=== PATIENT | male | born 1970 | race Caucasian/White ===

== ENCOUNTER → 2018-05-03 14:02 | Outpatient (CLI) | payer OTHER, SELFPAY ==
--- NOTE | 2018-05-03 | OV.WND_ITS ---
Progress Note Details Patient Name: Tomy Chin Patient Number: [id number] PatientPatientDate: 05/03/2018 Clinician: Nishi Pena Physician / Automotive Maintenance Technician: Benedict Dodd SUBJECTIVE Chief Complaint This information was obtained from the patient Diabetic toe ulcers. Allergies codeine (Severity: Severe, Reaction: confusion, lethargy) HPI This information was obtained from the patient 05/03/18. Seen by Dr. Dodd. The patient returns to clinic with recurrence of bilateral 2nd toe diabetic ulcers which is the 3rd recurrence in the past year. His most recent A1c was around '10' according to his and he was off his diabetes medication for an extended period while they were try to re-establish insurance coverage. His blood sugar control historically has been poor. He does not report pain in the toes however the medical typist does report some purulent drainage. 01/11/18. Seen by Dr. Dodd. The patient does not report increased drainage associated with the chronic right 2nd toe diabetic ulcer since last visit and he's applying topical iodosorb as recommended to manage the chronic maceration. Of note, he's also wearing a silicon sleeve over the toe to help prevent shear and callus. 01/04/18. Seen by Dr. Dodd. The patient reports increased drainage associated with the chronic right 2nd toe diabetic ulcer since last visit. Of note comment blood sugars again are significantly elevated at 270 today he states very few of them are below 200 general. He is also wearing his new diabetic shoes as well as a toe lift on the 2nd toe to help facilitate better offloading due to the significant plantar flexion deformity. 12/28/17. Seen by Dr. Dodd. The patient does not report significant drainage associated with the chronic right second toe diabetic ulcer since his last visit and he is wearing a silicon sleeve over the plantar flexed toe to help reduce shear and callus. He is wearing his offloading shoe as recommended and states his blood sugar control is improving although its still at 200 today in clinic. 12/21/17. Seen by Dr. Dodd. The patient does not report increased drainage or pain associated with chronic right second toe diabetic ulcer since his last visit. 12/14/17. Seen by Dr. Dodd. The patient does not report increased drainage or pain associated with chronic right second toe diabetic ulcer since his last visit. He also states blood sugars are improving with most below 200. 12/07/17. Seen by Dr. Dodd. The patient's wound culture from the right second toe diabetic ulcer taken last week grew Streptococcus. He's completed his course of doxycycline and is continuing to apply topical gentamicin as recommended. His blood sugars however continued to be frequently over 200 which tends to be admittedly due to noncompliance with a diabetic diet. 11/30/17. Seen by KAYLEE Asif. The patient reports pain and swelling associated with right 2nd toe diabetic ulcer that started one day ago. Denies fevers, chills. The patient does not report drainage or pain associated with left 2nd toe diabetic ulcer. The patient currently does not have test strips to check his blood glucose at home but states he is getting some today. 11/23/17. Seen by Dr. Dodd. The patient does not report significant drainage associated with the bilateral 2nd toe diabetic ulcers since his last visit. His blood sugars are over 300 today and he admits to have a candy bar on the way to his visit today. He's unaware of when his last A1c was drawn but feels he's probably overdue regarding this. He's also wearing his toe lifts to address the plantar flexion deformities but feels they may no longer be effective. 11/16/17. Seen by Carlos Jackson PA-C. The patient reports decreased drainage from his bilateral diabetic foot ulcers. He continues to have blood sugar readings above 150. 11/09/17. Seen by Carlos Jackson PA-C. The patient reports his blood sugars continue to be elevated. He is hoping to have his medications adjusted to address this issue in the coming weeks. His ulcer of the right and left toes have had decreased drainage. 11/02/17. Seen by Carlos Jackson PA-C. The patient reports that he continues to have high blood sugars this week and has not yet resumed taking glipizide as instructed. He notes stable drainage from his right and left foot ulcers and would like to procure custom diabetic shoes and inserts to compensate for his deformed feet. His chronic callouses of his feet are unchanged he reports. He continues on Amoxicillin for his ulcer infection which has been causing mild diarrhea. 10/26/17. Seen by Carlos Jackson PA-C. The patient reports that he has run out of his Glipizide, thus his blood sugars have been very high this week. He does not report increased drainage from his ulcers. 10/19/17. Seen by Dr. Dodd. The patient's reports increased drainage from the right second toe diabetic ulcer that was first noticed yesterday. The patient does not report pain at the site nor increased drainage or pain associated with the chronic left second toe diabetic ulcer. 10/12/17. Seen by Carlos Jackson PA-C. The patient again reports high blood sugars this week, with numbers in the 200s. Drainage is not increased from his diabetic foot ulcers. 10/05/17. Seen by Carlos Jackson PA-C. The patient reports high blood sugars this week and stable drainage from his diabetic foot ulcers. The patient is not insured at this time and does not wish to go forward with the CT scan to evaluate for osteomyelitis due to the cost. 09/28/17. Seen by Carlos Jackson PA-C. The patient reports continued redness and swelling of his left 2nd toe. Drainage has been stable from this ulcer. He is on doxycycline currently for an infection of this ulcer. 09/21/17. Seen by Dr. Dodd. The patient returns for clinic following a recent visit to the ER where he was seen for cellulitis of the left second toe associated with recurrence of a distal second toe diabetic ulcer. He is now on Bactrim but feels that the erythema and pain is have not improved. He also reports some drainage associated with the recurrent right second toe diabetic ulcer. Of note, he has plantar flexion deformities of both toes and wears toe lifts to help offset this and help prevent callus formation. 06/02/17. Seen by Dr. Dodd. The patient does not report pain or increased drainage associated with the chronic bilateral second toe diabetic ulcers. 05/26/17. Seen by Dr. Dodd. The patient does not report pain or increased drainage associated with the chronic bilateral second toe diabetic ulcers. He is taking Augmentin for the recurrent MSSA positive wound infections and does not report ever side effects. 05/19/17. Seen by Dr. Dodd. The patient does not report significant drainage associated with the bilateral second toe diabetic foot ulcers since last week. They're also using toe lifts to help offload the significant bilateral 2nd toe plantarflexion deformities. 05/12/17. Seen by Dr. Dodd. The patient does not report significant drainage associated with the bilateral second toe diabetic foot ulcers since last week and he's been applying topical triple antibiotic ointment to the sites as recommended to treat the recent MSSA positive culture. 05/05/17. Seen by Dr. Dodd. The patient does not report significant drainage associated with the bilateral second toe diabetic foot ulcers since last week. His wound culture grew MSSA and he's been wearing his toe lifts as recommended to help off load the distal toes noting the plantarflexion deformity that's contributed to callus formation. 04/28/17. Seen by Dr. Dodd. The patient reports some pain associated with the recently healed right second toe diabetic ulcer and notes that he had inserts placed in his diabetic shoes about a week ago and feels that it may have resulted in increased callus formation at this toe as well as the left second toe. He does not report any pain or associated drainage from the left second toe diabetic ulcer. His blood sugars continue to be well controlled. 04/14/17. Seen by Dr. Dodd. The patient does not report drainage associated with the bilateral second toe diabetic ulcers since last visit. 04/07/17. Seen by Dr. Dodd. The patient does not report significant drainage associated with bilateral second toe diabetic ulcers. He's wearing his toe lifts as recommended and states his blood sugars continue to be well-controlled. 03/31/17. Seen by Dr. Dodd. The patient does not report significant drainage associated with bilateral second toe diabetic ulcers. He's wearing his toe lifts as recommended and states his blood sugars continue to be well-controlled. 03/24/17. Seen by Dr. Dodd. The patient does not report significant drainage associated with the chronic bilateral foot ulcers of the distal second toes. He's wearing toe this as recommended due to the significant plantar flexion deformity of the toe's and his blood sugars continue to be well-controlled. 03/16/17. Seen by Dr. Dodd. The patient returns to clinic with two chronic, right and left 2nd toe diabetic ulcers that started about 1 month ago. He works a full schedule wearing 'work boots' and has been using toe lifts due to plantar flexion of the toes as recommended. He does not report pain or significant drainage from ulcer sites nor fevers or felling unwell in general and his blood sugars are typically well controlled below 150. 05/26/16. Seen by Dr. Dodd. The patient does not report drainage associated with the right second toe diabetic ulcer of the past week. 05/19/16. Seen by Dr. Dodd. The patient does not report significant drainage associated with the right second toe diabetic ulcer of the past week. He continues to wear his toe left as recommended to help offload the ulcer. His blood sugars are well-controlled below 150 consistently and when discussing his morbid obesity he states that he's attempted to lose weight in the past by dieting but has been relatively unsuccessful. 05/12/16. Seen by Dr. Dodd. The patient reports minimal drainage on the right 2nd toe diabetic ulcer dressing throughout the week. 05/05/16. Seen by Dr. Dodd. The patient reports minimal drainage on the right 2nd toe diabetic ulcer dressing throughout the week. He's offloading with a surgical shoe and states most of his blood sugars are below 150. 04/28/16. Seen by Dr. Dodd. The patient does not report pain or significant drainage associated with the chronic right 2nd toe diabetic ulcer over the past week. Of note, he's unable have an MRI to evaluate for osteomyelitis of the toe due to a intracranial clip that was placed a number of years ago. He's also wearing his toe lift as recommended to address the significant plantar flexion that's contributing to the refractory nature of the ulcer. 04/21/16. Seen by Dr. Dodd. The patient does not report significant drainage associated with a chronic right second toe diabetic ulcer of the past week. He also states his blood sugars are consistently below 150. 03/31/16. Seen by Dr. Dodd. The patient does not report significant pain or drainage associated with the chronic right second toe diabetic ulcer over the past week. He is wearing his offloading shoe as recommended and states his blood sugars are mostly below 150. 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 Past Medical History This information was obtained from the patient Patient has a medical history of: Aneurysm (s/p clip placement) Seizure Disorder Type II Diabetes Hyperlipidemia Hypertension Morbid Obesity Tension pneumothorax Phlebitis Onycholysis Surgical History This information was obtained from the patient Patient has a surgical history of: Aneurysm repair, brain Hernia repair Lung Surgery Complaints and Symptoms This information was obtained from the patient Patient complains of: General Notes: I have reviewed and concur with the Review of Systems and Past Family Social History documents completed by the clinician, I have reviewed and concur with the Wound Assessment document completed by the clinician Integumentary (Hair/Skin/Nails): Open Sore Musculoskeletal: Joint Swelling Neurological: Loss of Protective Sensation Prior Wound History: Drainage, Erythema, Pain Patient denies complaints or symptoms related to: Cardiovascular (Central): Irregular heart beat Cardiovascular (Central/Peripheral): Intermittent Claudication, Lower extremity (leg) resting pain, Lower extremity (leg) swelling Constitutional Symptoms (General Health): Chills, Fever Ear/Nose/Mouth/Throat: Hearing Loss / Aid Gastrointestinal (GI): Nausea / Vomiting Hematologic/Lymphatic: Bleeding / Clotting Disorders, Bleeding Tendency Prior Wound History: Bleeding, Malodor Psychiatric: Depression, Memory Loss Respiratory: Oxygen Use, Shortness of Breath General Notes: Updated per patient. Additional Information Does patient have a history of Cancer? Yes? Complete all questions.: No Medications phenytoin 100 mg/4 mL oral suspension oral 4 4 suspension oral once daily metformin ER 500 mg tablet,extended release 24 hr oral 2 2 tablet extended release 24 hr oral once daily glipizide ER 10 mg tablet, extended release 24 hr oral 1 1 tablet extended release 24hr oral twice daily pravastatin 20 mg tablet oral 1 1 tablet oral once daily lisinopril 40 mg tablet oral 1 1 tablet oral once daily fenofibrate 160 mg tablet oral 1 1 tablet oral once daily gentamicin 0.1 % topical ointment topical ointment topical once daily for 7 days for infected ulcers OBJECTIVE Constitutional Vital signs reviewed and noted. Well developed. Alert. Clean appearing.. Height/ Length: 75 in (190.5 cm), Weight: 276.6 lbs (125.73 kgs), BMI: 34.6, Temperature: 97.9 ?F ( 36.61 ?C), Pulse: 76 bpm, Respiratory Rate: 18 breaths/min, Blood Pressure: 129/78 mmHg, Capillary Blood Glucose: 240 mg/dl, Pulse Oximetry: 97 %. Ears, Nose, Mouth, and Throat: No clinically significant hearing loss on informal examination. Respiratory: No respiratory distress. Even respirations and without use of accessory muscles.. Cardiovascular: 2+ bilateral lower leg edema. Gastrointestinal (GI): Obese. Nondistended.. Musculoskeletal: Significant plantar flexion of right 2nd toe. Significant plantar flexion of left 2nd toe. Integumentary (Hair, Skin) No periwound erythema, warmth, or significant drainage. No periwound rashes appreciated or noted otherwise.. Refer to appropriate clinician wound documentation for this visit; right and left 2nd toe ulcers extend to deep subcut with bases partially covered with pink granulation, remainder fibrin and slough; no appreciable bone exposure. Significant amount of callus and maceration in the periulcer areas. Wound #6 Left Second Toe is a chronic Gambino Grade 3 Diabetic Ulcer and has received a status of Not Healed. Initial wound encounter measurements are 0.2cm length x 0.2cm width x 0.2cm depth, with an area of 0.04 sq cm and a volume of 0.008 cubic cm. No tunneling has been noted. No sinus tract has been noted. No undermining has been noted. There is a large amount of sanguineous drainage noted which has no odor. The patient reports a wound pain of level 0/10. Wound bed has No epithelialization, No eschar, Yes slough, No granulation. The periwound skin moisture is normal. The periwound skin color is normal. The periwound skin exhibited: Callus. The temperature of the periwound skin is Warm. Periwound skin presents with s/s of infection. Confirmation Description and Treatment Plan is: Signs and Symptoms Present. Local Pulse is Doppler. Wound #7 Right Second Toe is a chronic Gambino Grade 3 Diabetic Ulcer and has received a status of Not Healed. Initial wound encounter measurements are 1.2cm length x 1.1cm width x 0.2cm depth, with an area of 1.32 sq cm and a volume of 0.264 cubic cm. No tunneling has been noted. No sinus tract has been noted. No undermining has been noted. There is a moderate amount of purlulent drainage noted which has a mild odor. The patient reports a wound pain of level 4/10. The wound margin is callus. Wound bed has No epithelialization, No eschar, Yes slough, No granulation. The periwound skin texture is normal. The periwound skin moisture is normal. The periwound skin color is normal. The temperature of the periwound skin is Warm. Periwound skin presents with s/s of infection. Confirmation Description and Treatment Plan is: Signs and Symptoms Present. Local Pulse is Doppler. Neurological: Cranial nerves grossly intact with symmetric function normal by informal observation.. Additional Information Done outside of center (results scanned in)?: Did have Arterial studies done today on both legs. Doppler ASSESSMENT Active Problems ICD-10 (Encounter Diagnosis) E11.621 - Type 2 diabetes mellitus with foot ulcer (Encounter Diagnosis) L97.512 - Non-pressure chronic ulcer of other part of right foot with fat layer exposed (Encounter Diagnosis) L97.522 - Non-pressure chronic ulcer of other part of left foot with fat layer exposed (Encounter Diagnosis) L08.9 - Local infection of the skin and subcutaneous tissue, unspecified (Encounter Diagnosis) E11.65 - Type 2 diabetes mellitus with hyperglycemia PROCEDURES Wound #6 Wound #6 (Diabetic Ulcer) is located on the left second toe. A skin/ subcutaneous tissue level surgical debridement with a total area debrided of 0.12 sq cm was performed by Benedict Dodd MD. Subcutaneous was removed along with devitalized tissue: callus and slough. The following instrument(s) were used: curette. Pain control was achieved using 4% Lido. A time out was conducted prior to the start of the procedure. A minimal amount of bleeding was controlled with pressure. The procedure was tolerated well with a pain level of 0 throughout and a pain level of 0 following the procedure. Post Debridement Measurements: 0.4cm length x 0.3cm width x 0.3cm depth; with an area of 0.12 sq cm and a volume of 0.036 cubic cm; Wound #7 Wound #7 (Diabetic Ulcer) is located on the right second toe. A skin/ subcutaneous tissue level surgical debridement with a total area debrided of 0.42 sq cm was performed by Benedict Dodd MD. Subcutaneous was removed along with devitalized tissue: callus, exudate , and slough. The following instrument(s) were used: curette, forceps, and scissors. Pain control was achieved using 4% Lido. A time out was conducted prior to the start of the procedure. A minimal amount of bleeding was controlled with pressure. The procedure was tolerated well with a pain level of 0 throughout and a pain level of 0 following the procedure. Post Debridement Measurements: 0.6cm length x 0.7cm width x 0.3cm depth; with an area of 0.42 sq cm and a volume of 0.126 cubic cm; Additional Information Muscle fascia or bone removed and sent to pathology?: No Muscle fascia or bone removed and sent to pathology?: No PLAN Wound Orders: Wound #6 Left Second Toe Cleanser Cleanse Wound: - Distilled water. Dressings Pack wound: - Gentamicin to wound bed Primary dressing: - Foam Cover and secure with: - Hypafix Change Dressing: - Every other day. Off-Loading Keep weight off: - Left 2nd toe wear off loading shoe Follow-Up Appointments Return Appointment: - - One week Wound #7 Right Second Toe Cleanser Cleanse Wound: - Distilled water. Dressings Pack wound: - Gentamicin to wound bed Primary dressing: - Foam Cover and secure with: - Hypafix Change Dressing: - Every other day. Follow-Up Appointments Return Appointment: - - One week Laboratory: Culture Wound - Both Right and Left Second toes cultured. Medications prescribed: gentamicin - topical 0.1 % ointment once daily for 7 days for infected ulcers starting 05/03/2018 I've reviewed the clinician's documentation and agree with the evaluation and plan as written. In addition the patient's ulcers demonstrate evidence of non-viable devitalized tissue and they will continue to benefit from sharp debridement to help promote granulation and expedite healing. Also, I've cultured both 2nd toe ulcers and will treat with topical gentamicin then consider adding an oral antibiotic pending the culture results. He'll also work towards improving his blood sugar control. Electronic Signature(s) Signed By: Date: Benedict Dodd MD 05/04/2018 08:53:09 Entered By: Benedict Dodd on 05/04/2018 07:17:16
== END ==
PROVIDERS: Family Provider Internal Medicine; PCP Internal Medicine; Visit Provider Internal Medicine
DX: E11.621 Type 2 diabetes mellitus with foot ulcer (principal); L97.512 Non-pressure chronic ulcer of other part of right foot with fat layer exposed; L97.522 Non-pressure chronic ulcer of other part of left foot with fat layer exposed; L08.9 Local infection of the skin and subcutaneous tissue, unspecified; E11.65 Type 2 diabetes mellitus with hyperglycemia
CPT/HCPCS: 11042; 87070; 87075; 87077; 87147; 87186; 87205

== ENCOUNTER → 2018-05-10 09:07 | Outpatient (CLI) | payer OTHER, SELFPAY ==
--- NOTE | 2018-05-10 | OV.WND_ITS ---
Progress Note Details Patient Name: Tomy Chin Patient Number: [id number] PatientPatientDate: 05/10/2018 Clinician: Jolanta Neal Clinician Cosigner: Cami Bell Physician / Aerospace Stress Engineer: Benedict Dodd SUBJECTIVE Chief Complaint This information was obtained from the patient Diabetic toe ulcers. Allergies codeine (Severity: Severe, Reaction: confusion, lethargy) HPI This information was obtained from the patient 05/10/18. Seen by Dr. Dodd. The patient does not report increased drainage associated with the recurrent and chronic right and left 2nd toe diabetic ulcers since his last visit and he's not yet picked up his Augmentin that's to treat the recent Enterococcus positive wound culture. His blood sugars are well controlled also around 150. 05/03/18. Seen by Dr. Dodd. The patient returns to clinic with recurrence of bilateral 2nd toe diabetic ulcers which is the 3rd recurrence in the past year. His most recent A1c was around '10' according to his and he was off his diabetes medication for an extended period while they were try to re-establish insurance coverage. His blood sugar control historically has been poor. 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 01/11/18. Seen by Dr. Dodd. The patient does not report increased drainage associated with the chronic right 2nd toe diabetic ulcer since last visit and he's applying topical iodosorb as recommended to manage the chronic maceration. Of note, he's also wearing a silicon sleeve over the toe to help prevent shear and callus. 01/04/18. Seen by Dr. Dodd. The patient reports increased drainage associated with the chronic right 2nd toe diabetic ulcer since last visit. Of note comment blood sugars again are significantly elevated at 270 today he states very few of them are below 200 general. He is also wearing his new diabetic shoes as well as a toe lift on the 2nd toe to help facilitate better offloading due to the significant plantar flexion deformity. 12/28/17. Seen by Dr. Dodd. The patient does not report significant drainage associated with the chronic right second toe diabetic ulcer since his last visit and he is wearing a silicon sleeve over the plantar flexed toe to help reduce shear and callus. He is wearing his offloading shoe as recommended and states his blood sugar control is improving although its still at 200 today in clinic. 12/21/17. Seen by Dr. Dodd. The patient does not report increased drainage or pain associated with chronic right second toe diabetic ulcer since his last visit. 12/14/17. Seen by Dr. Dodd. The patient does not report increased drainage or pain associated with chronic right second toe diabetic ulcer since his last visit. He also states blood sugars are improving with most below 200. 12/07/17. Seen by Dr. Dodd. The patient's wound culture from the right second toe diabetic ulcer taken last week grew Streptococcus. He's completed his course of doxycycline and is continuing to apply topical gentamicin as recommended. His blood sugars however continued to be frequently over 200 which tends to be admittedly due to noncompliance with a diabetic diet. 11/30/17. Seen by KAYLEE Asif. The patient reports pain and swelling associated with right 2nd toe diabetic ulcer that started one day ago. Denies fevers, chills. The patient does not report drainage or pain associated with left 2nd toe diabetic ulcer. The patient currently does not have test strips to check his blood glucose at home but states he is getting some today. 11/23/17. Seen by Dr. Dodd. The patient does not report significant drainage associated with the bilateral 2nd toe diabetic ulcers since his last visit. His blood sugars are over 300 today and he admits to have a candy bar on the way to his visit today. He's unaware of when his last A1c was drawn but feels he's probably overdue regarding this. He's also wearing his toe lifts to address the plantar flexion deformities but feels they may no longer be effective. 11/16/17. Seen by Carlos Jackson PA-C. The patient reports decreased drainage from his bilateral diabetic foot ulcers. He continues to have blood sugar readings above 150. 11/09/17. Seen by Carlos Jackson PA-C. The patient reports his blood sugars continue to be elevated. He is hoping to have his medications adjusted to address this issue in the coming weeks. His ulcer of the right and left toes have had decreased drainage. 11/02/17. Seen by Carlos Jackson PA-C. The patient reports that he continues to have high blood sugars this week and has not yet resumed taking glipizide as instructed. He notes stable drainage from his right and left foot ulcers and would like to procure custom diabetic shoes and inserts to compensate for his deformed feet. His chronic callouses of his feet are unchanged he reports. He continues on Amoxicillin for his ulcer infection which has been causing mild diarrhea. 10/26/17. Seen by Carlos Jackson PA-C. The patient reports that he has run out of his Glipizide, thus his blood sugars have been very high this week. He does not report increased drainage from his ulcers. 10/19/17. Seen by Dr. Dodd. The patient's reports increased drainage from the right second toe diabetic ulcer that was first noticed yesterday. The patient does not report pain at the site nor increased drainage or pain associated with the chronic left second toe diabetic ulcer. 10/12/17. Seen by Carlos Jackson PA-C. The patient again reports high blood sugars this week, with numbers in the 200s. Drainage is not increased from his diabetic foot ulcers. 10/05/17. Seen by Carlos Jackson PA-C. The patient reports high blood sugars this week and stable drainage from his diabetic foot ulcers. The patient is not insured at this time and does not wish to go forward with the CT scan to evaluate for osteomyelitis due to the cost. 09/28/17. Seen by Carlos Jackson PA-C. The patient reports continued redness and swelling of his left 2nd toe. Drainage has been stable from this ulcer. He is on doxycycline currently for an infection of this ulcer. 09/21/17. Seen by Dr. Dodd. The patient returns for clinic following a recent visit to the ER where he was seen for cellulitis of the left second toe associated with recurrence of a distal second toe diabetic ulcer. He is now on Bactrim but feels that the erythema and pain is have not improved. He also reports some drainage associated with the recurrent right second toe diabetic ulcer. Of note, he has plantar flexion deformities of both toes and wears toe lifts to help offset this and help prevent callus formation. 06/02/17. Seen by Dr. Dodd. The patient does not report pain or increased drainage associated with the chronic bilateral second toe diabetic ulcers. 05/26/17. Seen by Dr. Dodd. The patient does not report pain or increased drainage associated with the chronic bilateral second toe diabetic ulcers. He is taking Augmentin for the recurrent MSSA positive wound infections and does not report ever side effects. 05/19/17. Seen by Dr. Dodd. The patient does not report significant drainage associated with the bilateral second toe diabetic foot ulcers since last week. They're also using toe lifts to help offload the significant bilateral 2nd toe plantarflexion deformities. 05/12/17. Seen by Dr. Dodd. The patient does not report significant drainage associated with the bilateral second toe diabetic foot ulcers since last week and he's been applying topical triple antibiotic ointment to the sites as recommended to treat the recent MSSA positive culture. 05/05/17. Seen by Dr. Dodd. The patient does not report significant drainage associated with the bilateral second toe diabetic foot ulcers since last week. His wound culture grew MSSA and he's been wearing his toe lifts as recommended to help off load the distal toes noting the plantarflexion deformity that's contributed to callus formation. 04/28/17. Seen by Dr. Dodd. The patient reports some pain associated with the recently healed right second toe diabetic ulcer and notes that he had inserts placed in his diabetic shoes about a week ago and feels that it may have resulted in increased callus formation at this toe as well as the left second toe. He does not report any pain or associated drainage from the left second toe diabetic ulcer. His blood sugars continue to be well controlled. 04/14/17. Seen by Dr. Dodd. The patient does not report drainage associated with the bilateral second toe diabetic ulcers since last visit. 04/07/17. Seen by Dr. Dodd. The patient does not report significant drainage associated with bilateral second toe diabetic ulcers. He's wearing his toe lifts as recommended and states his blood sugars continue to be well-controlled. 03/31/17. Seen by Dr. Dodd. The patient does not report significant drainage associated with bilateral second toe diabetic ulcers. He's wearing his toe lifts as recommended and states his blood sugars continue to be well-controlled. 03/24/17. Seen by Dr. Dodd. The patient does not report significant drainage associated with the chronic bilateral foot ulcers of the distal second toes. He's wearing toe this as recommended due to the significant plantar flexion deformity of the toe's and his blood sugars continue to be well-controlled. 03/16/17. Seen by Dr. Dodd. The patient returns to clinic with two chronic, right and left 2nd toe diabetic ulcers that started about 1 month ago. He works a full schedule wearing 'work boots' and has been using toe lifts due to plantar flexion of the toes as recommended. He does not report pain or significant drainage from ulcer sites nor fevers or felling unwell in general and his blood sugars are typically well controlled below 150. 05/26/16. Seen by Dr. Dodd. The patient does not report drainage associated with the right second toe diabetic ulcer of the past week. 05/19/16. Seen by Dr. Dodd. The patient does not report significant drainage associated with the right second toe diabetic ulcer of the past week. He continues to wear his toe left as recommended to help offload the ulcer. His blood sugars are well-controlled below 150 consistently and when discussing his morbid obesity he states that he's attempted to lose weight in the past by dieting but has been relatively unsuccessful. 05/12/16. Seen by Dr. Dodd. The patient reports minimal drainage on the right 2nd toe diabetic ulcer dressing throughout the week. 05/05/16. Seen by Dr. Dodd. The patient reports minimal drainage on the right 2nd toe diabetic ulcer dressing throughout the week. He's offloading with a surgical shoe and states most of his blood sugars are below 150. 04/28/16. Seen by Dr. Dodd. The patient does not report pain or significant drainage associated with the chronic right 2nd toe diabetic ulcer over the past week. Of note, he's unable have an MRI to evaluate for osteomyelitis of the toe due to a intracranial clip that was placed a number of years ago. He's also wearing his toe lift as recommended to address the significant plantar flexion that's contributing to the refractory nature of the ulcer. 04/21/16. Seen by Dr. Dodd. The patient does not report significant drainage associated with a chronic right second toe diabetic ulcer of the past week. He also states his blood sugars are consistently below 150. 03/31/16. Seen by Dr. Dodd. The patient does not report significant pain or drainage associated with the chronic right second toe diabetic ulcer over the past week. He is wearing his offloading shoe as recommended and states his blood sugars are mostly below 150. Past Medical History This information was obtained from the patient Patient has a medical history of: Aneurysm (s/p clip placement) Seizure Disorder Type II Diabetes Hyperlipidemia Hypertension Morbid Obesity Tension pneumothorax Phlebitis Onycholysis Complaints and Symptoms This information was obtained from the patient Patient complains of: General Notes: I have reviewed and concur with the Review of Systems and Past Family Social History documents completed by the clinician, I have reviewed and concur with the Wound Assessment document completed by the clinician Integumentary (Hair/Skin/Nails): Open Sore Musculoskeletal: Joint Swelling Neurological: Loss of Protective Sensation Prior Wound History: Drainage, Erythema, Pain Patient denies complaints or symptoms related to: Cardiovascular (Central): Irregular heart beat Cardiovascular (Central/Peripheral): Intermittent Claudication, Lower extremity (leg) resting pain, Lower extremity (leg) swelling Constitutional Symptoms (General Health): Chills, Fever Ear/Nose/Mouth/Throat: Hearing Loss / Aid Gastrointestinal (GI): Nausea / Vomiting Hematologic/Lymphatic: Bleeding / Clotting Disorders, Bleeding Tendency Prior Wound History: Bleeding, Malodor Psychiatric: Depression, Memory Loss Respiratory: Oxygen Use, Shortness of Breath Additional Information Does patient have a history of Cancer? Yes? Complete all questions.: No OBJECTIVE Constitutional Vital signs reviewed and noted. Well developed. Alert. Clean appearing.. Height/ Length: 75 in (190.5 cm), Weight: 375.2 lbs (170.55 kgs), BMI: 46.9, Temperature: 97.6 ?F ( 36.44 ?C), Pulse: 78 bpm, Respiratory Rate: 18 breaths/min, Blood Pressure: 135/78 mmHg, Capillary Blood Glucose: 162 mg/dl, Pulse Oximetry: 97 %. Vital Signs Notes: Glucose per patient. Cardiovascular: 2+ bilateral lower leg edema. Gastrointestinal (GI): Obese. Nondistended.. Integumentary (Hair, Skin) No periwound erythema, warmth, or significant drainage. No periwound rashes appreciated or noted otherwise.. Refer to appropriate clinician wound documentation for this visit; right and left 2nd toe ulcers extend to subcut with bases partially covered with pink granulation, remainder fibrin and slough. Moderate amount of callus in the periulcer areas. Wound #6 Left Second Toe is a chronic Gambino Grade 3 Diabetic Ulcer and has received a status of Not Healed. Subsequent wound encounter measurements are 0.5cm length x 0.7cm width x 0.1cm depth, with an area of 0.35 sq cm and a volume of 0.035 cubic cm. No tunneling has been noted. No sinus tract has been noted. No undermining has been noted. There is a moderate amount of serosanguineous drainage noted which has no odor. The patient reports a wound pain of level 0/10. The wound margin is callus. Wound bed has Yes epithelialization, No eschar, Yes slough, Yes pink, firm granulation. The periwound skin moisture is normal. The periwound skin color is normal. The periwound skin exhibited: Callus. The periwound skin did not exhibit: Brawny Induration, Edema, Excoriation, Induration, Crepitus, Fluctuance, Friable, Rash. The temperature of the periwound skin is Warm. Periwound skin does not exhibit signs or symptoms of infection. Local Pulse is Doppler. Wound #7 Right Second Toe is a chronic Gambino Grade 3 Diabetic Ulcer and has received a status of Not Healed. Subsequent wound encounter measurements are 0.6cm length x 0.7cm width x 0.1cm depth, with an area of 0.42 sq cm and a volume of 0.042 cubic cm. No tunneling has been noted. No sinus tract has been noted. No undermining has been noted. There is a moderate amount of serosanguineous drainage noted which has no odor. The patient reports a wound pain of level 4/10. The wound margin is callus. Wound bed has Yes epithelialization, No eschar, Yes slough, Yes pink, firm granulation. The periwound skin moisture is normal. The periwound skin color is normal. The periwound skin exhibited: Callus. The periwound skin did not exhibit: Brawny Induration, Edema, Excoriation, Induration, Crepitus, Fluctuance, Friable, Rash. The temperature of the periwound skin is Warm. Periwound skin does not exhibit signs or symptoms of infection. Local Pulse is Doppler. Neurological: Cranial nerves grossly intact with symmetric function normal by informal observation.. Additional Information Done outside of center (results scanned in)?: Did have Arterial studies done today on both legs. Doppler ASSESSMENT Active Problems ICD-10 (Encounter Diagnosis) E11.621 - Type 2 diabetes mellitus with foot ulcer (Encounter Diagnosis) L97.512 - Non-pressure chronic ulcer of other part of right foot with fat layer exposed (Encounter Diagnosis) L97.522 - Non-pressure chronic ulcer of other part of left foot with fat layer exposed (Encounter Diagnosis) B95.2 - Enterococcus as the cause of diseases classified elsewhere PROCEDURES Wound #6 Wound #6 (Diabetic Ulcer) is located on the left second toe. A skin/ subcutaneous tissue level surgical debridement with a total area debrided of 0.42 sq cm was performed by Benedict Dodd MD. Subcutaneous was removed along with devitalized tissue: callus, exudate , and slough. The following instrument(s) were used: curette. Pain control was achieved using 4% Lido. A time out was conducted prior to the start of the procedure. A minimal amount of bleeding was controlled with n/a. The procedure was tolerated well with a pain level of 0 throughout and a pain level of 0 following the procedure. Post Debridement Measurements: 0.6cm length x 0.7cm width x 0.1cm depth; with an area of 0.42 sq cm and a volume of 0.042 cubic cm; Wound #7 Wound #7 (Diabetic Ulcer) is located on the right second toe. A skin/ subcutaneous tissue level surgical debridement with a total area debrided of 0.49 sq cm was performed by Benedict Dodd MD. Subcutaneous was removed along with devitalized tissue: callus, exudate , and slough. The following instrument(s) were used: curette. Pain control was achieved using 4% Lido. A time out was conducted prior to the start of the procedure. A minimal amount of bleeding was controlled with n/a. The procedure was tolerated well with a pain level of 0 throughout and a pain level of 0 following the procedure. Post Debridement Measurements: 0.7cm length x 0.7cm width x 0.1cm depth; with an area of 0.49 sq cm and a volume of 0.049 cubic cm; Additional Information Muscle fascia or bone removed and sent to pathology?: No Muscle fascia or bone removed and sent to pathology?: No PLAN Wound Orders: Wound #6 Left Second Toe Cleanser Cleanse Wound: - Normal saline and gauze in clinic. May use distilled water at home. May Shower. - Protect in shower with cast protector or plastic bag. Topical Treatments Antibiotic/Antimicrobial Ointment/Cream. - Gentamicin ointment. Dressings Cover and secure with: - Foam and hypafix tape. Change Dressing: - Every other day. Off-Loading Keep weight off: - Left 2nd toe wear off loading shoe Wound #7 Right Second Toe Cleanser Cleanse Wound: - Normal saline and gauze in clinic. May use distilled water at home. May Shower. - Protect in shower with cast protector or plastic bag. Topical Treatments Antibiotic/Antimicrobial Ointment/Cream. - Gentamicin ointment. Dressings Cover and secure with: - Foam and hypafix tape. Change Dressing: - Every other day. Additional Orders: Follow-Up Appointments Return Appointment: - - One week. Other information: If you develop fever, chills, increased pain, drainage, redness or swelling please call our office. If after hours, respond to the ER. Should you experience any significant changes in your wound(s) or have any questions regarding your home care instructions please contact the wound center @ [phone]. If after hours, contact your primary care physician or go to the hospital emergency room. Scribing Attestation I attest, as the nurse, that I scribed these orders for the physician. I've reviewed the clinician's documentation and agree with the evaluation and plan as written. In addition the patient's ulcers demonstrate evidence of non-viable devitalized tissue and they will continue to benefit from sharp debridement to help promote granulation and expedite healing. 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 Electronic Signature(s) Signed By: Date: Benedict oDdd MD 05/11/2018 09:41:06 Entered By: Benedict Dodd on 05/11/2018 09:38:58
== END ==
PROVIDERS: Family Provider Internal Medicine; PCP Internal Medicine; Visit Provider Internal Medicine
DX: E11.621 Type 2 diabetes mellitus with foot ulcer (principal); L97.512 Non-pressure chronic ulcer of other part of right foot with fat layer exposed; L97.522 Non-pressure chronic ulcer of other part of left foot with fat layer exposed; B95.2 Enterococcus as the cause of diseases classified elsewhere
CPT/HCPCS: 11042

== ENCOUNTER → 2018-05-17 08:52 | Outpatient (CLI) | payer OTHER, SELFPAY ==
--- NOTE | 2018-05-17 | OV.WND_ITS ---
Progress Note Details Patient Name: Tomy Chin Patient Number: [id number] PatientPatientDate: 05/17/2018 Clinician: Sophie Gomez Clinician Cosigner: Cami Bell Physician / Repairer Sash And Door: Benedict Dodd SUBJECTIVE Chief Complaint This information was obtained from the patient Diabetic toe ulcers. Allergies codeine (Severity: Severe, Reaction: confusion, lethargy) HPI This information was obtained from the patient 05/17/18. Seen by Dr. Dodd. The patient does not report increased drainage associated with the recurrent and chronic right and left 2nd toe diabetic ulcers since his last visit and he's wearing a left forefoot offloading shoe as recommended. His blood sugars are improving also with most now below 200. 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 05/10/18. Seen by Dr. Dodd. The patient does not report increased drainage associated with the recurrent and chronic right and left 2nd toe diabetic ulcers since his last visit and he's not yet picked up his Augmentin that's to treat the recent Enterococcus positive wound culture. His blood sugars are well controlled also around 150. 05/03/18. Seen by Dr. Dodd. The patient returns to clinic with recurrence of bilateral 2nd toe diabetic ulcers which is the 3rd recurrence in the past year. His most recent A1c was around '10' according to his and he was off his diabetes medication for an extended period while they were try to re-establish insurance coverage. His blood sugar control historically has been poor. 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 01/11/18. Seen by Dr. Dodd. The patient does not report increased drainage associated with the chronic right 2nd toe diabetic ulcer since last visit and he's applying topical iodosorb as recommended to manage the chronic maceration. Of note, he's also wearing a silicon sleeve over the toe to help prevent shear and callus. 01/04/18. Seen by Dr. Dodd. The patient reports increased drainage associated with the chronic right 2nd toe diabetic ulcer since last visit. Of note comment blood sugars again are significantly elevated at 270 today he states very few of them are below 200 general. He is also wearing his new diabetic shoes as well as a toe lift on the 2nd toe to help facilitate better offloading due to the significant plantar flexion deformity. 12/28/17. Seen by Dr. Dodd. The patient does not report significant drainage associated with the chronic right second toe diabetic ulcer since his last visit and he is wearing a silicon sleeve over the plantar flexed toe to help reduce shear and callus. He is wearing his offloading shoe as recommended and states his blood sugar control is improving although its still at 200 today in clinic. 12/21/17. Seen by Dr. Dodd. The patient does not report increased drainage or pain associated with chronic right second toe diabetic ulcer since his last visit. 12/14/17. Seen by Dr. Dodd. The patient does not report increased drainage or pain associated with chronic right second toe diabetic ulcer since his last visit. He also states blood sugars are improving with most below 200. 12/07/17. Seen by Dr. Dodd. The patient's wound culture from the right second toe diabetic ulcer taken last week grew Streptococcus. He's completed his course of doxycycline and is continuing to apply topical gentamicin as recommended. His blood sugars however continued to be frequently over 200 which tends to be admittedly due to noncompliance with a diabetic diet. 11/30/17. Seen by KAYLEE Asif. The patient reports pain and swelling associated with right 2nd toe diabetic ulcer that started one day ago. Denies fevers, chills. The patient does not report drainage or pain associated with left 2nd toe diabetic ulcer. The patient currently does not have test strips to check his blood glucose at home but states he is getting some today. 11/23/17. Seen by Dr. Dodd. The patient does not report significant drainage associated with the bilateral 2nd toe diabetic ulcers since his last visit. His blood sugars are over 300 today and he admits to have a candy bar on the way to his visit today. He's unaware of when his last A1c was drawn but feels he's probably overdue regarding this. He's also wearing his toe lifts to address the plantar flexion deformities but feels they may no longer be effective. 11/16/17. Seen by Carlos Jackson PA-C. The patient reports decreased drainage from his bilateral diabetic foot ulcers. He continues to have blood sugar readings above 150. 11/09/17. Seen by Carlos Jackson PA-C. The patient reports his blood sugars continue to be elevated. He is hoping to have his medications adjusted to address this issue in the coming weeks. His ulcer of the right and left toes have had decreased drainage. 11/02/17. Seen by Carlos Jackson PA-C. The patient reports that he continues to have high blood sugars this week and has not yet resumed taking glipizide as instructed. He notes stable drainage from his right and left foot ulcers and would like to procure custom diabetic shoes and inserts to compensate for his deformed feet. His chronic callouses of his feet are unchanged he reports. He continues on Amoxicillin for his ulcer infection which has been causing mild diarrhea. 10/26/17. Seen by Carlos Jackson PA-C. The patient reports that he has run out of his Glipizide, thus his blood sugars have been very high this week. He does not report increased drainage from his ulcers. 10/19/17. Seen by Dr. Dodd. The patient's reports increased drainage from the right second toe diabetic ulcer that was first noticed yesterday. The patient does not report pain at the site nor increased drainage or pain associated with the chronic left second toe diabetic ulcer. 10/12/17. Seen by Carlos Jackson PA-C. The patient again reports high blood sugars this week, with numbers in the 200s. Drainage is not increased from his diabetic foot ulcers. 10/05/17. Seen by Carlos Jackson PA-C. The patient reports high blood sugars this week and stable drainage from his diabetic foot ulcers. The patient is not insured at this time and does not wish to go forward with the CT scan to evaluate for osteomyelitis due to the cost. 09/28/17. Seen by Carlos Jackson PA-C. The patient reports continued redness and swelling of his left 2nd toe. Drainage has been stable from this ulcer. He is on doxycycline currently for an infection of this ulcer. 09/21/17. Seen by Dr. Dodd. The patient returns for clinic following a recent visit to the ER where he was seen for cellulitis of the left second toe associated with recurrence of a distal second toe diabetic ulcer. He is now on Bactrim but feels that the erythema and pain is have not improved. He also reports some drainage associated with the recurrent right second toe diabetic ulcer. Of note, he has plantar flexion deformities of both toes and wears toe lifts to help offset this and help prevent callus formation. 06/02/17. Seen by Dr. Dodd. The patient does not report pain or increased drainage associated with the chronic bilateral second toe diabetic ulcers. 05/26/17. Seen by Dr. Dodd. The patient does not report pain or increased drainage associated with the chronic bilateral second toe diabetic ulcers. He is taking Augmentin for the recurrent MSSA positive wound infections and does not report ever side effects. 05/19/17. Seen by Dr. Dodd. The patient does not report significant drainage associated with the bilateral second toe diabetic foot ulcers since last week. They're also using toe lifts to help offload the significant bilateral 2nd toe plantarflexion deformities. 05/12/17. Seen by Dr. Dodd. The patient does not report significant drainage associated with the bilateral second toe diabetic foot ulcers since last week and he's been applying topical triple antibiotic ointment to the sites as recommended to treat the recent MSSA positive culture. 05/05/17. Seen by Dr. Dodd. The patient does not report significant drainage associated with the bilateral second toe diabetic foot ulcers since last week. His wound culture grew MSSA and he's been wearing his toe lifts as recommended to help off load the distal toes noting the plantarflexion deformity that's contributed to callus formation. 04/28/17. Seen by Dr. Dodd. The patient reports some pain associated with the recently healed right second toe diabetic ulcer and notes that he had inserts placed in his diabetic shoes about a week ago and feels that it may have resulted in increased callus formation at this toe as well as the left second toe. He does not report any pain or associated drainage from the left second toe diabetic ulcer. His blood sugars continue to be well controlled. 04/14/17. Seen by Dr. Dodd. The patient does not report drainage associated with the bilateral second toe diabetic ulcers since last visit. 04/07/17. Seen by Dr. Dodd. The patient does not report significant drainage associated with bilateral second toe diabetic ulcers. He's wearing his toe lifts as recommended and states his blood sugars continue to be well-controlled. 03/31/17. Seen by Dr. Dodd. The patient does not report significant drainage associated with bilateral second toe diabetic ulcers. He's wearing his toe lifts as recommended and states his blood sugars continue to be well-controlled. 03/24/17. Seen by Dr. Dodd. The patient does not report significant drainage associated with the chronic bilateral foot ulcers of the distal second toes. He's wearing toe this as recommended due to the significant plantar flexion deformity of the toe's and his blood sugars continue to be well-controlled. 03/16/17. Seen by Dr. Dodd. The patient returns to clinic with two chronic, right and left 2nd toe diabetic ulcers that started about 1 month ago. He works a full schedule wearing 'work boots' and has been using toe lifts due to plantar flexion of the toes as recommended. He does not report pain or significant drainage from ulcer sites nor fevers or felling unwell in general and his blood sugars are typically well controlled below 150. 05/26/16. Seen by Dr. Dodd. The patient does not report drainage associated with the right second toe diabetic ulcer of the past week. 05/19/16. Seen by Dr. Dodd. The patient does not report significant drainage associated with the right second toe diabetic ulcer of the past week. He continues to wear his toe left as recommended to help offload the ulcer. His blood sugars are well-controlled below 150 consistently and when discussing his morbid obesity he states that he's attempted to lose weight in the past by dieting but has been relatively unsuccessful. 05/12/16. Seen by Dr. Dodd. The patient reports minimal drainage on the right 2nd toe diabetic ulcer dressing throughout the week. 05/05/16. Seen by Dr. Dodd. The patient reports minimal drainage on the right 2nd toe diabetic ulcer dressing throughout the week. He's offloading with a surgical shoe and states most of his blood sugars are below 150. 04/28/16. Seen by Dr. Dodd. The patient does not report pain or significant drainage associated with the chronic right 2nd toe diabetic ulcer over the past week. Of note, he's unable have an MRI to evaluate for osteomyelitis of the toe due to a intracranial clip that was placed a number of years ago. He's also wearing his toe lift as recommended to address the significant plantar flexion that's contributing to the refractory nature of the ulcer. 04/21/16. Seen by Dr. Dodd. The patient does not report significant drainage associated with a chronic right second toe diabetic ulcer of the past week. He also states his blood sugars are consistently below 150. 03/31/16. Seen by Dr. Dodd. The patient does not report significant pain or drainage associated with the chronic right second toe diabetic ulcer over the past week. He is wearing his offloading shoe as recommended and states his blood sugars are mostly below 150. Past Medical History This information was obtained from the patient Patient has a medical history of: Aneurysm (s/p clip placement) Seizure Disorder Type II Diabetes Hyperlipidemia Hypertension Morbid Obesity Tension pneumothorax Phlebitis Onycholysis Complaints and Symptoms This information was obtained from the patient Patient complains of: General Notes: I have reviewed and concur with the Review of Systems and Past Family Social History documents completed by the clinician, I have reviewed and concur with the Wound Assessment document completed by the clinician Integumentary (Hair/Skin/Nails): Open Sore Musculoskeletal: Joint Swelling Neurological: Loss of Protective Sensation Prior Wound History: Drainage, Erythema, Pain Patient denies complaints or symptoms related to: Cardiovascular (Central): Irregular heart beat Cardiovascular (Central/Peripheral): Intermittent Claudication, Lower extremity (leg) resting pain, Lower extremity (leg) swelling Constitutional Symptoms (General Health): Chills, Fever Ear/Nose/Mouth/Throat: Hearing Loss / Aid Gastrointestinal (GI): Nausea / Vomiting Hematologic/Lymphatic: Bleeding / Clotting Disorders, Bleeding Tendency Prior Wound History: Bleeding, Malodor Psychiatric: Depression, Memory Loss Respiratory: Oxygen Use, Shortness of Breath Additional Information Does patient have a history of Cancer? Yes? Complete all questions.: No OBJECTIVE Constitutional Vital signs reviewed and noted. Well developed. Alert. Clean appearing.. Height/ Length: 75 in (190.5 cm), Weight: 375.4 lbs (170.64 kgs), BMI: 46.9, Temperature: 97.9 ?F ( 36.61 ?C), Pulse: 69 bpm, Respiratory Rate: 18 breaths/min, Blood Pressure: 132/80 mmHg, Capillary Blood Glucose: 160 mg/dl, Pulse Oximetry: 97 %. Vital Signs Notes: Glucose per patient. Ears, Nose, Mouth, and Throat: No clinically significant hearing loss on informal examination. Respiratory: No respiratory distress. Even respirations and without use of accessory muscles.. Cardiovascular: 2+ bilateral lower leg edema. Gastrointestinal (GI): Obese. Nondistended.. Musculoskeletal: Significant plantar flexion of right 2nd toe. Significant plantar flexion of left 2nd toe. Integumentary (Hair, Skin) No periwound erythema, warmth, or significant drainage. No periwound rashes appreciated or noted otherwise.. Refer to appropriate clinician wound documentation for this visit; right and left foot ulcers extend to subcut with bases partially covered with pink granulation, remainder fibrin and slough. Moderate amount of callus in the periulcer areas. Wound #6 Left Second Toe is a chronic Gambino Grade 3 Diabetic Ulcer and has received a status of Not Healed. Subsequent wound encounter measurements are 0.4cm length x 0.8cm width x 0.1cm depth, with an area of 0.32 sq cm and a volume of 0.032 cubic cm. No tunneling has been noted. No sinus tract has been noted. No undermining has been noted. There is a small amount of serosanguineous drainage noted which has no odor. The patient reports a wound pain of level 0/10. The wound margin is callus. Wound bed has Yes epithelialization, No eschar, Yes slough, Yes pink, firm granulation. The periwound skin moisture is normal. The periwound skin color is normal. The periwound skin exhibited: Callus. The periwound skin did not exhibit: Brawny Induration, Edema, Excoriation, Induration, Crepitus, Fluctuance, Friable, Rash. The temperature of the periwound skin is Warm. Periwound skin does not exhibit signs or symptoms of infection. Local Pulse is Doppler. Wound #7 Right Second Toe is a chronic Gambino Grade 3 Diabetic Ulcer and has received a status of Not Healed. Subsequent wound encounter measurements are 0.7cm length x 0.6cm width x 0.1cm depth, with an area of 0.42 sq cm and a volume of 0.042 cubic cm. No tunneling has been noted. No sinus tract has been noted. No undermining has been noted. There is a small amount of serosanguineous drainage noted which has no odor. The patient reports a wound pain of level 4/10. The wound margin is callus. Wound bed has Yes epithelialization, No eschar, Yes slough, Yes pink, firm granulation. The periwound skin moisture is normal. The periwound skin color is normal. The periwound skin exhibited: Callus. The periwound skin did not exhibit: Brawny Induration, Edema, Excoriation, Induration, Crepitus, Fluctuance, Friable, Rash. The temperature of the periwound skin is Warm. Periwound skin does not exhibit signs or symptoms of infection. Local Pulse is Doppler. Neurological: Cranial nerves grossly intact with symmetric function normal by informal observation.. Additional Information Done outside of center (results scanned in)?: Did have Arterial studies done today on both legs. Doppler ASSESSMENT Active Problems ICD-10 (Encounter Diagnosis) E11.621 - Type 2 diabetes mellitus with foot ulcer (Encounter Diagnosis) L97.512 - Non-pressure chronic ulcer of other part of right foot with fat layer exposed (Encounter Diagnosis) L97.522 - Non-pressure chronic ulcer of other part of left foot with fat layer exposed (Encounter Diagnosis) M20.61 - Acquired deformities of toe(s), unspecified, right foot (Encounter Diagnosis) M20.62 - Acquired deformities of toe(s), unspecified, left foot (Encounter Diagnosis) E66.01 - Morbid (severe) obesity due to excess calories PROCEDURES Wound #6 Wound #6 (Diabetic Ulcer) is located on the left second toe. A skin/ subcutaneous tissue level surgical debridement with a total area debrided of 0.32 sq cm was performed by Benedict Dodd MD. Subcutaneous was removed along with devitalized tissue: callus and slough. The following instrument(s) were used: curette. Pain control was achieved using 4% Lido. A time out was conducted prior to the start of the procedure. A minimal amount of bleeding was controlled with silver nitrate. The procedure was tolerated well with a pain level of 0 throughout and a pain level of 0 following the procedure. Post Debridement Measurements: 0.4cm length x 0.8cm width x 0.2cm depth; with an area of 0.32 sq cm and a volume of 0.064 cubic cm; Wound #7 Wound #7 (Diabetic Ulcer) is located on the right second toe. A skin/ subcutaneous tissue level surgical debridement with a total area debrided of 0.42 sq cm was performed by Benedict Dodd MD. Subcutaneous was removed along with devitalized tissue: callus and slough. The following instrument(s) were used: curette. Pain control was achieved using 4% Lido. A time out was conducted prior to the start of the procedure. A minimal amount of bleeding was controlled with n/a. The procedure was tolerated well with a pain level of 0 throughout and a pain level of 0 following the procedure. Post Debridement Measurements: 0.7cm length x 0.6cm width x 0.2cm depth; with an area of 0.42 sq cm and a volume of 0.084 cubic cm; Additional Information Muscle fascia or bone removed and sent to pathology?: No Muscle fascia or bone removed and sent to pathology?: No PLAN Wound Orders: Wound #6 Left Second Toe Cleanser Cleanse Wound: - Normal saline and gauze in clinic. May use distilled water at home. May Shower. - Protect in shower with cast protector or plastic bag. Topical Treatments Antibiotic/Antimicrobial Ointment/Cream. - Gentamicin ointment. Dressings Cover and secure with: - Foam and hypafix tape. Change Dressing: - Every other day. Off-Loading Keep weight off: - Left 2nd toe wear off loading shoe Wound #7 Right Second Toe Cleanser Cleanse Wound: - Normal saline and gauze in clinic. May use distilled water at home. May Shower. - Protect in shower with cast protector or plastic bag. Topical Treatments Antibiotic/Antimicrobial Ointment/Cream. - Gentamicin ointment. Dressings Cover and secure with: - Foam and hypafix tape. Change Dressing: - Every other day. Additional Orders: Follow-Up Appointments Return Appointment: - - One week. Other information: If you develop fever, chills, increased pain, drainage, redness or swelling please call our office. If after hours, respond to the ER. Should you experience any significant changes in your wound(s) or have any questions regarding your home care instructions please contact the wound center @ [phone]. If after hours, contact your primary care physician or go to the hospital emergency room. Scribing Attestation I attest, as the nurse, that I scribed these orders for the physician. I've reviewed the clinician's documentation and agree with the evaluation and plan as written. In addition the patient's ulcers demonstrate evidence of non-viable devitalized tissue and they will continue to benefit from sharp debridement to help promote granulation and expedite healing. Also, I've encouraged the patient to use a frame walker if possible to help better facilitate offloading noting this is quite difficult considering his toe deformities and morbid obesity. Electronic Signature(s) Signed By: Date: Benedict Dodd MD 05/18/2018 06:00:06 Entered By: Benedict Dodd on 05/18/2018 05:57:56
== END ==
PROVIDERS: Family Provider Internal Medicine; PCP Internal Medicine; Visit Provider Internal Medicine
DX: E11.621 Type 2 diabetes mellitus with foot ulcer (principal); L97.512 Non-pressure chronic ulcer of other part of right foot with fat layer exposed; L97.522 Non-pressure chronic ulcer of other part of left foot with fat layer exposed; M20.61 Acquired deformities of toe(s), unspecified, right foot; M20.62 Acquired deformities of toe(s), unspecified, left foot; E66.01 Morbid (severe) obesity due to excess calories
CPT/HCPCS: 11042

== ENCOUNTER → 2018-05-24 08:29 | Outpatient (CLI) | payer OTHER, SELFPAY ==
--- NOTE | 2018-05-24 | OV.WND_ITS ---
Progress Note Details Patient Name: Tomy Chin Patient Number: [id number] PatientPatientDate: 05/24/2018 Clinician: Mary Ny Clinician Cosigner: Cami Bell Physician / Landing Signal Officer: Benedict Dodd SUBJECTIVE Chief Complaint This information was obtained from the patient Diabetic toe ulcers. Allergies codeine (Severity: Severe, Reaction: confusion, lethargy) HPI This information was obtained from the patient 05/24/18. Seen by Dr. Dodd. The patient does not report increased drainage associated with the recurrent and chronic right and left 2nd toe diabetic ulcers since his last visit. 05/17/18. Seen by Dr. Dodd. The patient does not report increased drainage associated with the recurrent and chronic right and left 2nd toe diabetic ulcers since his last visit and he's wearing a left forefoot offloading shoe as recommended. His blood sugars are improving also with most now below 200. 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 05/10/18. Seen by Dr. Dodd. The patient does not report increased drainage associated with the recurrent and chronic right and left 2nd toe diabetic ulcers since his last visit and he's not yet picked up his Augmentin that's to treat the recent Enterococcus positive wound culture. His blood sugars are well controlled also around 150. 05/03/18. Seen by Dr. Dodd. The patient returns to clinic with recurrence of bilateral 2nd toe diabetic ulcers which is the 3rd recurrence in the past year. His most recent A1c was around '10' according to his and he was off his diabetes medication for an extended period while they were try to re-establish insurance coverage. His blood sugar control historically has been poor. 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 01/11/18. Seen by Dr. Dodd. The patient does not report increased drainage associated with the chronic right 2nd toe diabetic ulcer since last visit and he's applying topical iodosorb as recommended to manage the chronic maceration. Of note, he's also wearing a silicon sleeve over the toe to help prevent shear and callus. 01/04/18. Seen by Dr. Dodd. The patient reports increased drainage associated with the chronic right 2nd toe diabetic ulcer since last visit. Of note comment blood sugars again are significantly elevated at 270 today he states very few of them are below 200 general. He is also wearing his new diabetic shoes as well as a toe lift on the 2nd toe to help facilitate better offloading due to the significant plantar flexion deformity. 12/28/17. Seen by Dr. Dodd. The patient does not report significant drainage associated with the chronic right second toe diabetic ulcer since his last visit and he is wearing a silicon sleeve over the plantar flexed toe to help reduce shear and callus. He is wearing his offloading shoe as recommended and states his blood sugar control is improving although its still at 200 today in clinic. 12/21/17. Seen by Dr. Dodd. The patient does not report increased drainage or pain associated with chronic right second toe diabetic ulcer since his last visit. 12/14/17. Seen by Dr. Dodd. The patient does not report increased drainage or pain associated with chronic right second toe diabetic ulcer since his last visit. He also states blood sugars are improving with most below 200. 12/07/17. Seen by Dr. Dodd. The patient's wound culture from the right second toe diabetic ulcer taken last week grew Streptococcus. He's completed his course of doxycycline and is continuing to apply topical gentamicin as recommended. His blood sugars however continued to be frequently over 200 which tends to be admittedly due to noncompliance with a diabetic diet. 11/30/17. Seen by KAYLEE Asif. The patient reports pain and swelling associated with right 2nd toe diabetic ulcer that started one day ago. Denies fevers, chills. The patient does not report drainage or pain associated with left 2nd toe diabetic ulcer. The patient currently does not have test strips to check his blood glucose at home but states he is getting some today. 11/23/17. Seen by Dr. Dodd. The patient does not report significant drainage associated with the bilateral 2nd toe diabetic ulcers since his last visit. His blood sugars are over 300 today and he admits to have a candy bar on the way to his visit today. He's unaware of when his last A1c was drawn but feels he's probably overdue regarding this. He's also wearing his toe lifts to address the plantar flexion deformities but feels they may no longer be effective. 11/16/17. Seen by Carlos Jackson PA-C. The patient reports decreased drainage from his bilateral diabetic foot ulcers. He continues to have blood sugar readings above 150. 11/09/17. Seen by Carlos Jackson PA-C. The patient reports his blood sugars continue to be elevated. He is hoping to have his medications adjusted to address this issue in the coming weeks. His ulcer of the right and left toes have had decreased drainage. 11/02/17. Seen by Carlos Jackson PA-C. The patient reports that he continues to have high blood sugars this week and has not yet resumed taking glipizide as instructed. He notes stable drainage from his right and left foot ulcers and would like to procure custom diabetic shoes and inserts to compensate for his deformed feet. His chronic callouses of his feet are unchanged he reports. He continues on Amoxicillin for his ulcer infection which has been causing mild diarrhea. 10/26/17. Seen by Carlos Jackson PA-C. The patient reports that he has run out of his Glipizide, thus his blood sugars have been very high this week. He does not report increased drainage from his ulcers. 10/19/17. Seen by Dr. Dodd. The patient's reports increased drainage from the right second toe diabetic ulcer that was first noticed yesterday. The patient does not report pain at the site nor increased drainage or pain associated with the chronic left second toe diabetic ulcer. 10/12/17. Seen by Carlos Jackson PA-C. The patient again reports high blood sugars this week, with numbers in the 200s. Drainage is not increased from his diabetic foot ulcers. 10/05/17. Seen by Carlos Jackson PA-C. The patient reports high blood sugars this week and stable drainage from his diabetic foot ulcers. The patient is not insured at this time and does not wish to go forward with the CT scan to evaluate for osteomyelitis due to the cost. 09/28/17. Seen by Carlos Jackson PA-C. The patient reports continued redness and swelling of his left 2nd toe. Drainage has been stable from this ulcer. He is on doxycycline currently for an infection of this ulcer. 09/21/17. Seen by Dr. Dodd. The patient returns for clinic following a recent visit to the ER where he was seen for cellulitis of the left second toe associated with recurrence of a distal second toe diabetic ulcer. He is now on Bactrim but feels that the erythema and pain is have not improved. He also reports some drainage associated with the recurrent right second toe diabetic ulcer. Of note, he has plantar flexion deformities of both toes and wears toe lifts to help offset this and help prevent callus formation. 06/02/17. Seen by Dr. Dodd. The patient does not report pain or increased drainage associated with the chronic bilateral second toe diabetic ulcers. 05/26/17. Seen by Dr. Dodd. The patient does not report pain or increased drainage associated with the chronic bilateral second toe diabetic ulcers. He is taking Augmentin for the recurrent MSSA positive wound infections and does not report ever side effects. 05/19/17. Seen by Dr. Dodd. The patient does not report significant drainage associated with the bilateral second toe diabetic foot ulcers since last week. They're also using toe lifts to help offload the significant bilateral 2nd toe plantarflexion deformities. 05/12/17. Seen by Dr. Dodd. The patient does not report significant drainage associated with the bilateral second toe diabetic foot ulcers since last week and he's been applying topical triple antibiotic ointment to the sites as recommended to treat the recent MSSA positive culture. 05/05/17. Seen by Dr. Dodd. The patient does not report significant drainage associated with the bilateral second toe diabetic foot ulcers since last week. His wound culture grew MSSA and he's been wearing his toe lifts as recommended to help off load the distal toes noting the plantarflexion deformity that's contributed to callus formation. 04/28/17. Seen by Dr. Dodd. The patient reports some pain associated with the recently healed right second toe diabetic ulcer and notes that he had inserts placed in his diabetic shoes about a week ago and feels that it may have resulted in increased callus formation at this toe as well as the left second toe. He does not report any pain or associated drainage from the left second toe diabetic ulcer. His blood sugars continue to be well controlled. 04/14/17. Seen by Dr. Dodd. The patient does not report drainage associated with the bilateral second toe diabetic ulcers since last visit. 04/07/17. Seen by Dr. Dodd. The patient does not report significant drainage associated with bilateral second toe diabetic ulcers. He's wearing his toe lifts as recommended and states his blood sugars continue to be well-controlled. 03/31/17. Seen by Dr. Dodd. The patient does not report significant drainage associated with bilateral second toe diabetic ulcers. He's wearing his toe lifts as recommended and states his blood sugars continue to be well-controlled. 03/24/17. Seen by Dr. Dodd. The patient does not report significant drainage associated with the chronic bilateral foot ulcers of the distal second toes. He's wearing toe this as recommended due to the significant plantar flexion deformity of the toe's and his blood sugars continue to be well-controlled. 03/16/17. Seen by Dr. Dodd. The patient returns to clinic with two chronic, right and left 2nd toe diabetic ulcers that started about 1 month ago. He works a full schedule wearing 'work boots' and has been using toe lifts due to plantar flexion of the toes as recommended. He does not report pain or significant drainage from ulcer sites nor fevers or felling unwell in general and his blood sugars are typically well controlled below 150. 05/26/16. Seen by Dr. Dodd. The patient does not report drainage associated with the right second toe diabetic ulcer of the past week. 05/19/16. Seen by Dr. Dodd. The patient does not report significant drainage associated with the right second toe diabetic ulcer of the past week. He continues to wear his toe left as recommended to help offload the ulcer. His blood sugars are well-controlled below 150 consistently and when discussing his morbid obesity he states that he's attempted to lose weight in the past by dieting but has been relatively unsuccessful. 05/12/16. Seen by Dr. Dodd. The patient reports minimal drainage on the right 2nd toe diabetic ulcer dressing throughout the week. 05/05/16. Seen by Dr. Dodd. The patient reports minimal drainage on the right 2nd toe diabetic ulcer dressing throughout the week. He's offloading with a surgical shoe and states most of his blood sugars are below 150. 04/28/16. Seen by Dr. Dodd. The patient does not report pain or significant drainage associated with the chronic right 2nd toe diabetic ulcer over the past week. Of note, he's unable have an MRI to evaluate for osteomyelitis of the toe due to a intracranial clip that was placed a number of years ago. He's also wearing his toe lift as recommended to address the significant plantar flexion that's contributing to the refractory nature of the ulcer. 04/21/16. Seen by Dr. Dodd. The patient does not report significant drainage associated with a chronic right second toe diabetic ulcer of the past week. He also states his blood sugars are consistently below 150. 03/31/16. Seen by Dr. Dodd. The patient does not report significant pain or drainage associated with the chronic right second toe diabetic ulcer over the past week. He is wearing his offloading shoe as recommended and states his blood sugars are mostly below 150. Past Medical History This information was obtained from the patient Patient has a medical history of: Aneurysm (s/p clip placement) Seizure Disorder Type II Diabetes Hyperlipidemia Hypertension Morbid Obesity Tension pneumothorax Phlebitis Onycholysis Complaints and Symptoms This information was obtained from the patient Patient complains of: General Notes: I have reviewed and concur with the Review of Systems and Past Family Social History documents completed by the clinician, I have reviewed and concur with the Wound Assessment document completed by the clinician Integumentary (Hair/Skin/Nails): Open Sore Musculoskeletal: Joint Swelling Neurological: Loss of Protective Sensation Prior Wound History: Drainage, Erythema, Pain Patient denies complaints or symptoms related to: Cardiovascular (Central): Irregular heart beat Cardiovascular (Central/Peripheral): Intermittent Claudication, Lower extremity (leg) resting pain, Lower extremity (leg) swelling Constitutional Symptoms (General Health): Chills, Fever Ear/Nose/Mouth/Throat: Hearing Loss / Aid Gastrointestinal (GI): Nausea / Vomiting Hematologic/Lymphatic: Bleeding / Clotting Disorders, Bleeding Tendency Prior Wound History: Bleeding, Malodor Psychiatric: Depression, Memory Loss Respiratory: Oxygen Use, Shortness of Breath Additional Information Does patient have a history of Cancer? Yes? Complete all questions.: No OBJECTIVE Constitutional BP elevated; Afebrile; Alert and in no distress. Well developed. Alert. Clean appearing.. Height/Length: 75 in (190.5 cm), Weight: 375.4 lbs (170.64 kgs), BMI: 46.9, Temperature: 98.0 ?F (36.67 ?C), Pulse: 67 bpm, Respiratory Rate: 18 breaths/min, Blood Pressure: 147/82 mmHg, Capillary Blood Glucose: 135 mg/dl, Pulse Oximetry: 100 %. Vital Signs Notes: Glucose per patient Respiratory: No respiratory distress. Even respirations and without use of accessory muscles.. Cardiovascular: 2+ bilateral lower leg edema. Gastrointestinal (GI): Obese. Nondistended.. Integumentary (Hair, Skin) No periwound erythema, warmth, or significant drainage. No periwound rashes appreciated or noted otherwise.. Refer to appropriate clinician wound documentation for this visit; right and left foot ulcers extend to subcut with bases partially covered with pink granulation, remainder fibrin and slough. Moderate amount of callus in the periulcer areas. Wound #6 Left Second Toe is a chronic Gambino Grade 3 Diabetic Ulcer and has received a status of Not Healed. Subsequent wound encounter measurements are 0.7cm length x 0.7cm width x 0.4cm depth, with an area of 0.49 sq cm and a volume of 0.196 cubic cm. No tunneling has been noted. No sinus tract has been noted. No undermining has been noted. There is a moderate amount of serosanguineous drainage noted which has no odor. The patient reports a wound pain of level 0/10. The wound margin is callus. Wound bed has No epithelialization, No eschar, Yes slough, Yes pink, spongy granulation. The periwound skin moisture is normal. The periwound skin color is normal. The periwound skin exhibited: Callus. The periwound skin did not exhibit: Brawny Induration, Edema, Excoriation, Induration, Crepitus, Fluctuance, Friable, Rash. The temperature of the periwound skin is Warm. Periwound skin does not exhibit signs or symptoms of infection. Local Pulse is Doppler. Wound #7 Right Second Toe is a chronic Gambino Grade 3 Diabetic Ulcer and has received a status of Not Healed. Subsequent wound encounter measurements are 0.6cm length x 0.6cm width x 0.3cm depth, with an area of 0.36 sq cm and a volume of 0.108 cubic cm. No tunneling has been noted. No sinus tract has been noted. No undermining has been noted. There is a small amount of serosanguineous drainage noted which has no odor. The patient reports a wound pain of level 2/10. The wound margin is callus. Wound bed has Yes epithelialization, No eschar, Yes slough, Yes pink, firm granulation. The periwound skin moisture is normal. The periwound skin color is normal. The periwound skin exhibited: Callus. The periwound skin did not exhibit: Brawny Induration, Edema, Excoriation, Induration, Crepitus, Fluctuance, Friable, Rash. The temperature of the periwound skin is Warm. Periwound skin does not exhibit signs or symptoms of infection. Local Pulse is Doppler. Neurological: Cranial nerves grossly intact with symmetric function normal by informal observation.. Additional Information Done outside of center (results scanned in)?: Did have Arterial studies done today on both legs. Doppler ASSESSMENT Active Problems ICD-10 (Encounter Diagnosis) E11.621 - Type 2 diabetes mellitus with foot ulcer (Encounter Diagnosis) L97.512 - Non-pressure chronic ulcer of other part of right foot with fat layer exposed (Encounter Diagnosis) L97.522 - Non-pressure chronic ulcer of other part of left foot with fat layer exposed PROCEDURES Wound #6 Wound #6 (Diabetic Ulcer) is located on the left second toe. A skin/ subcutaneous tissue level surgical debridement with a total area debrided of 0.49 sq cm was performed by Benedict Dodd MD. Subcutaneous was removed along with devitalized tissue: callus and slough. The following instrument(s) were used: curette. Pain control was achieved using 4% Lido. A time out was conducted prior to the start of the procedure. A minimal amount of bleeding was controlled with n/a. The procedure was tolerated well with a pain level of 0 throughout and a pain level of 0 following the procedure. Post Debridement Measurements: 0.7cm length x 0.7cm width x 0.5cm depth; with an area of 0.49 sq cm and a volume of 0.245 cubic cm; Wound #7 Wound #7 (Diabetic Ulcer) is located on the right second toe. A skin/ subcutaneous tissue level surgical debridement with a total area debrided of 0.36 sq cm was performed by Benedict Dodd MD. Subcutaneous was removed along with devitalized tissue: callus and slough. The following instrument(s) were used: curette. Pain control was achieved using 4% Lido. A time out was conducted prior to the start of the procedure. A minimal amount of bleeding was controlled with n/a. The procedure was tolerated well with a pain level of 0 throughout and a pain level of 0 following the procedure. Post Debridement Measurements: 0.6cm length x 0.6cm width x 0.4cm depth; with an area of 0.36 sq cm and a volume of 0.144 cubic cm; Additional Information Muscle fascia or bone removed and sent to pathology?: No Muscle fascia or bone removed and sent to pathology?: No PLAN Wound Orders: Wound #6 Left Second Toe Anesthetic Topical Xylocaine to wound bed. - In clinic only Cleanser Cleanse Wound: - Normal saline and gauze in clinic. May use distilled water at home. May Shower. - Protect in shower with cast protector or plastic bag. Topical Treatments Antibiotic/Antimicrobial Ointment/Cream. - Gentamicin ointment. Dressings Cover and secure with: - Foam and hypafix tape. Change Dressing: - Every other day. Off-Loading Keep weight off: - Left 2nd toe wear off loading shoe Wound #7 Right Second Toe Anesthetic Topical Xylocaine to wound bed. - In clinic only Cleanser Cleanse Wound: - Normal saline and gauze in clinic. May use distilled water at home. May Shower. - Protect in shower with cast protector or plastic bag. Topical Treatments Antibiotic/Antimicrobial Ointment/Cream. - Gentamicin ointment. Dressings Cover and secure with: - Foam and hypafix tape. Change Dressing: - Every other day. Additional Orders: Follow-Up Appointments Return Appointment: - - One week. Other information: If you develop fever, chills, increased pain, drainage, redness or swelling please call our office. If after hours, respond to the ER. Should you experience any significant changes in your wound(s) or have any questions regarding your home care instructions please contact the wound center @ [phone]. If after hours, contact your primary care physician or go to the hospital emergency room. Scribing Attestation I attest, as the nurse, that I scribed these orders for the physician. I've reviewed the clinician's documentation and agree with the evaluation and plan as written. In addition the patient's ulcers demonstrate evidence of non-viable devitalized tissue and they will continue to benefit from sharp debridement to help promote granulation and expedite healing. Electronic Signature(s) Signed By: Date: Benedict Dodd MD 05/25/2018 06:31:21 Entered By: Benedict Dodd on 05/25/2018 06:27:46
== END ==
PROVIDERS: Family Provider Internal Medicine; PCP Internal Medicine; Visit Provider Internal Medicine
DX: E11.621 Type 2 diabetes mellitus with foot ulcer (principal); L97.512 Non-pressure chronic ulcer of other part of right foot with fat layer exposed; L97.522 Non-pressure chronic ulcer of other part of left foot with fat layer exposed
CPT/HCPCS: 11042

== ENCOUNTER → 2018-05-31 08:47 | Outpatient (CLI) | payer OTHER, SELFPAY ==
--- NOTE | 2018-05-31 | OV.WND_ITS ---
Progress Note Details Patient Name: Tomy Chin Patient Number: [id number] PatientPatientDate: 05/31/2018 Clinician: Jolanta Neal Clinician Cosigner: Cami Bell Physician / [employer]fit[employer] Supervisor: Benedict Dodd SUBJECTIVE Chief Complaint This information was obtained from the patient Diabetic toe ulcers. Allergies codeine (Severity: Severe, Reaction: confusion, lethargy) HPI This information was obtained from the patient 05/31/18. Seen by Dr. Dodd. 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 He has significant plantar foot contractures of both 2nd toes which contributes to callus formation and the recurrent and refractory nature of the ulcers. 05/24/18. Seen by Dr. Dodd. The patient does not report increased drainage associated with the recurrent and chronic right and left 2nd toe diabetic ulcers since his last visit. 05/17/18. Seen by Dr. Dodd. The patient does not report increased drainage associated with the recurrent and chronic right and left 2nd toe diabetic ulcers since his last visit and he's wearing a left forefoot offloading shoe as recommended. His blood sugars are improving also with most now below 200. 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 05/10/18. Seen by Dr. Dodd. The patient does not report increased drainage associated with the recurrent and chronic right and left 2nd toe diabetic ulcers since his last visit and he's not yet picked up his Augmentin that's to treat the recent Enterococcus positive wound culture. His blood sugars are well controlled also around 150. 05/03/18. Seen by Dr. Dodd. The patient returns to clinic with recurrence of bilateral 2nd toe diabetic ulcers which is the 3rd recurrence in the past year. His most recent A1c was around '10' according to his and he was off his diabetes medication for an extended period while they were try to re-establish insurance coverage. His blood sugar control historically has been poor. 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 01/11/18. Seen by Dr. Dodd. The patient does not report increased drainage associated with the chronic right 2nd toe diabetic ulcer since last visit and he's applying topical iodosorb as recommended to manage the chronic maceration. Of note, he's also wearing a silicon sleeve over the toe to help prevent shear and callus. 01/04/18. Seen by Dr. Dodd. The patient reports increased drainage associated with the chronic right 2nd toe diabetic ulcer since last visit. Of note comment blood sugars again are significantly elevated at 270 today he states very few of them are below 200 general. He is also wearing his new diabetic shoes as well as a toe lift on the 2nd toe to help facilitate better offloading due to the significant plantar flexion deformity. 12/28/17. Seen by Dr. Dodd. The patient does not report significant drainage associated with the chronic right second toe diabetic ulcer since his last visit and he is wearing a silicon sleeve over the plantar flexed toe to help reduce shear and callus. He is wearing his offloading shoe as recommended and states his blood sugar control is improving although its still at 200 today in clinic. 12/21/17. Seen by Dr. Dodd. The patient does not report increased drainage or pain associated with chronic right second toe diabetic ulcer since his last visit. 12/14/17. Seen by Dr. Dodd. The patient does not report increased drainage or pain associated with chronic right second toe diabetic ulcer since his last visit. He also states blood sugars are improving with most below 200. 12/07/17. Seen by Dr. Dodd. The patient's wound culture from the right second toe diabetic ulcer taken last week grew Streptococcus. He's completed his course of doxycycline and is continuing to apply topical gentamicin as recommended. His blood sugars however continued to be frequently over 200 which tends to be admittedly due to noncompliance with a diabetic diet. 11/30/17. Seen by KAYLEE Asif. The patient reports pain and swelling associated with right 2nd toe diabetic ulcer that started one day ago. Denies fevers, chills. The patient does not report drainage or pain associated with left 2nd toe diabetic ulcer. The patient currently does not have test strips to check his blood glucose at home but states he is getting some today. 11/23/17. Seen by Dr. Dodd. The patient does not report significant drainage associated with the bilateral 2nd toe diabetic ulcers since his last visit. His blood sugars are over 300 today and he admits to have a candy bar on the way to his visit today. He's unaware of when his last A1c was drawn but feels he's probably overdue regarding this. He's also wearing his toe lifts to address the plantar flexion deformities but feels they may no longer be effective. 11/16/17. Seen by Carlos Jackson PA-C. The patient reports decreased drainage from his bilateral diabetic foot ulcers. He continues to have blood sugar readings above 150. 11/09/17. Seen by Carlos Jackson PA-C. The patient reports his blood sugars continue to be elevated. He is hoping to have his medications adjusted to address this issue in the coming weeks. His ulcer of the right and left toes have had decreased drainage. 11/02/17. Seen by Carlos Jackson PA-C. The patient reports that he continues to have high blood sugars this week and has not yet resumed taking glipizide as instructed. He notes stable drainage from his right and left foot ulcers and would like to procure custom diabetic shoes and inserts to compensate for his deformed feet. His chronic callouses of his feet are unchanged he reports. He continues on Amoxicillin for his ulcer infection which has been causing mild diarrhea. 10/26/17. Seen by Carlos Jackson PA-C. The patient reports that he has run out of his Glipizide, thus his blood sugars have been very high this week. He does not report increased drainage from his ulcers. 10/19/17. Seen by Dr. Dodd. The patient's reports increased drainage from the right second toe diabetic ulcer that was first noticed yesterday. The patient does not report pain at the site nor increased drainage or pain associated with the chronic left second toe diabetic ulcer. 10/12/17. Seen by Carlos Jackson PA-C. The patient again reports high blood sugars this week, with numbers in the 200s. Drainage is not increased from his diabetic foot ulcers. 10/05/17. Seen by Carlos Jackson PA-C. The patient reports high blood sugars this week and stable drainage from his diabetic foot ulcers. The patient is not insured at this time and does not wish to go forward with the CT scan to evaluate for osteomyelitis due to the cost. 09/28/17. Seen by Carlos Jackson PA-C. The patient reports continued redness and swelling of his left 2nd toe. Drainage has been stable from this ulcer. He is on doxycycline currently for an infection of this ulcer. 09/21/17. Seen by Dr. Dodd. The patient returns for clinic following a recent visit to the ER where he was seen for cellulitis of the left second toe associated with recurrence of a distal second toe diabetic ulcer. He is now on Bactrim but feels that the erythema and pain is have not improved. He also reports some drainage associated with the recurrent right second toe diabetic ulcer. Of note, he has plantar flexion deformities of both toes and wears toe lifts to help offset this and help prevent callus formation. 06/02/17. Seen by Dr. Dodd. The patient does not report pain or increased drainage associated with the chronic bilateral second toe diabetic ulcers. 05/26/17. Seen by Dr. Dodd. The patient does not report pain or increased drainage associated with the chronic bilateral second toe diabetic ulcers. He is taking Augmentin for the recurrent MSSA positive wound infections and does not report ever side effects. 05/19/17. Seen by Dr. Dodd. The patient does not report significant drainage associated with the bilateral second toe diabetic foot ulcers since last week. They're also using toe lifts to help offload the significant bilateral 2nd toe plantarflexion deformities. 05/12/17. Seen by Dr. Dodd. The patient does not report significant drainage associated with the bilateral second toe diabetic foot ulcers since last week and he's been applying topical triple antibiotic ointment to the sites as recommended to treat the recent MSSA positive culture. 05/05/17. Seen by Dr. Dodd. The patient does not report significant drainage associated with the bilateral second toe diabetic foot ulcers since last week. His wound culture grew MSSA and he's been wearing his toe lifts as recommended to help off load the distal toes noting the plantarflexion deformity that's contributed to callus formation. 04/28/17. Seen by Dr. Dodd. The patient reports some pain associated with the recently healed right second toe diabetic ulcer and notes that he had inserts placed in his diabetic shoes about a week ago and feels that it may have resulted in increased callus formation at this toe as well as the left second toe. He does not report any pain or associated drainage from the left second toe diabetic ulcer. His blood sugars continue to be well controlled. 04/14/17. Seen by Dr. Dodd. The patient does not report drainage associated with the bilateral second toe diabetic ulcers since last visit. 04/07/17. Seen by Dr. Dodd. The patient does not report significant drainage associated with bilateral second toe diabetic ulcers. He's wearing his toe lifts as recommended and states his blood sugars continue to be well-controlled. 03/31/17. Seen by Dr. Dodd. The patient does not report significant drainage associated with bilateral second toe diabetic ulcers. He's wearing his toe lifts as recommended and states his blood sugars continue to be well-controlled. 03/24/17. Seen by Dr. Dodd. The patient does not report significant drainage associated with the chronic bilateral foot ulcers of the distal second toes. He's wearing toe this as recommended due to the significant plantar flexion deformity of the toe's and his blood sugars continue to be well-controlled. 03/16/17. Seen by Dr. Dodd. The patient returns to clinic with two chronic, right and left 2nd toe diabetic ulcers that started about 1 month ago. He works a full schedule wearing 'work boots' and has been using toe lifts due to plantar flexion of the toes as recommended. He does not report pain or significant drainage from ulcer sites nor fevers or felling unwell in general and his blood sugars are typically well controlled below 150. 05/26/16. Seen by Dr. Dodd. The patient does not report drainage associated with the right second toe diabetic ulcer of the past week. 05/19/16. Seen by Dr. Dodd. The patient does not report significant drainage associated with the right second toe diabetic ulcer of the past week. He continues to wear his toe left as recommended to help offload the ulcer. His blood sugars are well-controlled below 150 consistently and when discussing his morbid obesity he states that he's attempted to lose weight in the past by dieting but has been relatively unsuccessful. 05/12/16. Seen by Dr. Dodd. The patient reports minimal drainage on the right 2nd toe diabetic ulcer dressing throughout the week. 05/05/16. Seen by Dr. Dodd. The patient reports minimal drainage on the right 2nd toe diabetic ulcer dressing throughout the week. He's offloading with a surgical shoe and states most of his blood sugars are below 150. 04/28/16. Seen by Dr. Dodd. The patient does not report pain or significant drainage associated with the chronic right 2nd toe diabetic ulcer over the past week. Of note, he's unable have an MRI to evaluate for osteomyelitis of the toe due to a intracranial clip that was placed a number of years ago. He's also wearing his toe lift as recommended to address the significant plantar flexion that's contributing to the refractory nature of the ulcer. 04/21/16. Seen by Dr. Dodd. The patient does not report significant drainage associated with a chronic right second toe diabetic ulcer of the past week. He also states his blood sugars are consistently below 150. 03/31/16. Seen by Dr. Dodd. The patient does not report significant pain or drainage associated with the chronic right second toe diabetic ulcer over the past week. He is wearing his offloading shoe as recommended and states his blood sugars are mostly below 150. Past Medical History This information was obtained from the patient Patient has a medical history of: Aneurysm (s/p clip placement) Seizure Disorder Type II Diabetes Hyperlipidemia Hypertension Morbid Obesity Tension pneumothorax Phlebitis Onycholysis Complaints and Symptoms This information was obtained from the patient Patient complains of: General Notes: I have reviewed and concur with the Review of Systems and Past Family Social History documents completed by the clinician, I have reviewed and concur with the Wound Assessment document completed by the clinician Integumentary (Hair/Skin/Nails): Open Sore Musculoskeletal: Joint Swelling Neurological: Loss of Protective Sensation Prior Wound History: Drainage, Erythema, Pain Patient denies complaints or symptoms related to: Cardiovascular (Central): Irregular heart beat Cardiovascular (Central/Peripheral): Intermittent Claudication, Lower extremity (leg) resting pain, Lower extremity (leg) swelling Constitutional Symptoms (General Health): Chills, Fever Ear/Nose/Mouth/Throat: Hearing Loss / Aid Gastrointestinal (GI): Nausea / Vomiting Hematologic/Lymphatic: Bleeding / Clotting Disorders, Bleeding Tendency Prior Wound History: Bleeding, Malodor Psychiatric: Depression, Memory Loss Respiratory: Oxygen Use, Shortness of Breath Additional Information Does patient have a history of Cancer? Yes? Complete all questions.: No OBJECTIVE Constitutional Vital signs reviewed and noted. Well developed. Alert. Clean appearing.. Height/ Length: 75 in (190.5 cm), Weight: 377.9 lbs (171.77 kgs), BMI: 47.2, Temperature: 98.1 ?F ( 36.72 ?C), Pulse: 68 bpm, Respiratory Rate: 18 breaths/min, Blood Pressure: 129/78 mmHg, Capillary Blood Glucose: 200 mg/dl, Pulse Oximetry: 96 %. Vital Signs Notes: Glucose per patient. Ears, Nose, Mouth, and Throat: No clinically significant hearing loss on informal examination. Respiratory: No respiratory distress. Even respirations and without use of accessory muscles.. Cardiovascular: 1+ bilateral lower leg edema. Gastrointestinal (GI): Obese. Nondistended.. Musculoskeletal: Significant plantar flexion of right 2nd toe. Significant plantar flexion of left 2nd toe. Integumentary (Hair, Skin) No periwound erythema, warmth, or significant drainage. No periwound rashes appreciated or noted otherwise.. Refer to appropriate clinician wound documentation for this visit; right and left foot ulcers extend to subcut with bases partially covered with pink granulation, remainder fibrin and slough. Significant amount of callus in the periulcer areas. Wound #6 Left Second Toe is a chronic Gambino Grade 3 Diabetic Ulcer and has received a status of Not Healed. Subsequent wound encounter measurements are 0.6cm length x 0.7cm width x 0.1cm depth, with an area of 0.42 sq cm and a volume of 0.042 cubic cm. No tunneling has been noted. No sinus tract has been noted. No undermining has been noted. There is a small amount of serosanguineous drainage noted which has no odor. The patient reports a wound pain of level 0/10. The wound margin is callus. Wound bed has No epithelialization, No eschar, Yes slough, Yes pink, firm granulation. The periwound skin moisture is normal. The periwound skin color is normal. The periwound skin exhibited: Callus. The periwound skin did not exhibit: Brawny Induration, Edema, Excoriation, Induration, Crepitus, Fluctuance, Friable, Rash. The temperature of the periwound skin is Warm. Periwound skin does not exhibit signs or symptoms of infection. Local Pulse is Doppler. Wound #7 Right Second Toe is a chronic Gambino Grade 3 Diabetic Ulcer and has received a status of Not Healed. Subsequent wound encounter measurements are 0.6cm length x 0.5cm width x 0.1cm depth, with an area of 0.3 sq cm and a volume of 0.03 cubic cm. No tunneling has been noted. No sinus tract has been noted. No undermining has been noted. There is a small amount of serosanguineous drainage noted which has no odor. The patient reports a wound pain of level 2/10. The wound margin is callus. Wound bed has Yes epithelialization, No eschar, Yes slough, Yes pink, firm granulation. The periwound skin moisture is normal. The periwound skin color is normal. The periwound skin exhibited: Callus. The periwound skin did not exhibit: Brawny Induration, Edema, Excoriation, Induration, Crepitus, Fluctuance, Friable, Rash. The temperature of the periwound skin is Warm. Periwound skin does not exhibit signs or symptoms of infection. Local Pulse is Doppler. Neurological: Cranial nerves grossly intact with symmetric function normal by informal observation.. Additional Information Done outside of center (results scanned in)?: Did have Arterial studies done today on both legs. Doppler ASSESSMENT Active Problems ICD-10 (Encounter Diagnosis) E11.621 - Type 2 diabetes mellitus with foot ulcer (Encounter Diagnosis) L97.512 - Non-pressure chronic ulcer of other part of right foot with fat layer exposed (Encounter Diagnosis) L97.522 - Non-pressure chronic ulcer of other part of left foot with fat layer exposed (Encounter Diagnosis) M20.61 - Acquired deformities of toe(s), unspecified, right foot (Encounter Diagnosis) M20.62 - Acquired deformities of toe(s), unspecified, left foot PROCEDURES Wound #6 Wound #6 (Diabetic Ulcer) is located on the left second toe. A skin/ subcutaneous tissue level surgical debridement with a total area debrided of 0.36 sq cm was performed by Benedict Dodd MD. Subcutaneous was removed along with devitalized tissue: exudate and slough. The following instrument(s) were used: curette. Pain control was achieved using 4% Lido. A time out was conducted prior to the start of the procedure. A minimal amount of bleeding was controlled with pressure. The procedure was tolerated well with a pain level of 0 throughout and a pain level of 0 following the procedure. Post Debridement Measurements: 0.6cm length x 0.6cm width x 0.2cm depth; with an area of 0.36 sq cm and a volume of 0.072 cubic cm; Wound #7 Wound #7 (Diabetic Ulcer) is located on the right second toe. A skin/ subcutaneous tissue level surgical debridement with a total area debrided of 0.25 sq cm was performed by Benedict Dodd MD. Subcutaneous was removed along with devitalized tissue: exudate and slough. The following instrument(s) were used: curette. Pain control was achieved using 4% Lido. A time out was conducted prior to the start of the procedure. A minimal amount of bleeding was controlled with pressure. The procedure was tolerated well with a pain level of 0 throughout and a pain level of 0 following the procedure. Post Debridement Measurements: 0.5cm length x 0.5cm width x 0.2cm depth; with an area of 0.25 sq cm and a volume of 0.05 cubic cm; Additional Information Muscle fascia or bone removed and sent to pathology?: No Muscle fascia or bone removed and sent to pathology?: No PLAN Wound Orders: Wound #6 Left Second Toe Anesthetic Topical Xylocaine to wound bed. - In clinic only. Cleanser Cleanse Wound: - Normal saline and gauze in clinic. May use distilled water at home. May Shower. - Protect in shower with cast protector or plastic bag. Topical Treatments Antibiotic/Antimicrobial Ointment/Cream. - Gentamicin ointment. Dressings Cover and secure with: - Foam and hypafix tape. Change Dressing: - Every other day. Off-Loading Keep weight off: - Left 2nd toe. Wear off loading shoe. Wound #7 Right Second Toe Anesthetic Topical Xylocaine to wound bed. - In clinic only. Cleanser Cleanse Wound: - Normal saline and gauze in clinic. May use distilled water at home. May Shower. - Protect in shower with cast protector or plastic bag. Topical Treatments Antibiotic/Antimicrobial Ointment/Cream. - Gentamicin ointment. Dressings Cover and secure with: - Foam and hypafix tape. Change Dressing: - Every other day. Additional Orders: Follow-Up Appointments Return Appointment: - - One week. Other information: If you develop fever, chills, increased pain, drainage, redness or swelling please call our office. If after hours, respond to the ER. Should you experience any significant changes in your wound(s) or have any questions regarding your home care instructions please contact the wound center @ [phone]. If after hours, contact your primary care physician or go to the hospital emergency room. Scribing Attestation I attest, as the nurse, that I scribed these orders for the physician. General Notes: Will evaluate possibility of Total Contact Cast, and/or Knik boot. I've reviewed the clinician's documentation and agree with the evaluation and plan as written. In addition the patient's ulcers demonstrate evidence of non-viable devitalized tissue and they will continue to benefit from sharp debridement to help promote granulation and expedite healing. Also, we'll consider placing a total contact cast on the left lower leg next week to optimize offloading which the patient feels will be allowable at his job. Electronic Signature(s) Signed By: Date: Benedict Dodd MD 06/01/2018 11:44:00 Entered By: Benedict Dodd on 06/01/2018 11:39:31
== END ==
PROVIDERS: Family Provider Internal Medicine; PCP Internal Medicine; Visit Provider Internal Medicine
DX: E11.621 Type 2 diabetes mellitus with foot ulcer (principal); L97.512 Non-pressure chronic ulcer of other part of right foot with fat layer exposed; L97.522 Non-pressure chronic ulcer of other part of left foot with fat layer exposed; M20.61 Acquired deformities of toe(s), unspecified, right foot; M20.62 Acquired deformities of toe(s), unspecified, left foot
CPT/HCPCS: 11042

== ENCOUNTER → 2018-06-07 08:58 | Outpatient (CLI) | payer OTHER, SELFPAY ==
--- NOTE | 2018-06-07 | OV.WND_ITS ---
Progress Note Details Patient Name: Tomy Chin Patient Number: [id number] PatientPatientDate: 06/07/2018 Clinician: Mary Ny Clinician Cosigner: Cami Bell Physician / Frame Aligner: Benedict Dodd SUBJECTIVE Chief Complaint This information was obtained from the patient Diabetic toe ulcers. Allergies codeine (Severity: Severe, Reaction: confusion, lethargy) HPI This information was obtained from the patient 06/07/18. Seen by Dr. Dodd. The patient does not report increased drainage associated with the recurrent and chronic right and left 2nd toe diabetic ulcers since his last visit. He's also requesting a referral to orthotics for a BIG LAGOON boot which would help facilitate better offloading while he's at work. 05/31/18. Seen by Dr. Dodd. 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 He has significant plantar foot contractures of both 2nd toes which contributes to callus formation and the recurrent and refractory nature of the ulcers. 05/24/18. Seen by Dr. Dodd. The patient does not report increased drainage associated with the recurrent and chronic right and left 2nd toe diabetic ulcers since his last visit. 05/17/18. Seen by Dr. Dodd. The patient does not report increased drainage associated with the recurrent and chronic right and left 2nd toe diabetic ulcers since his last visit and he's wearing a left forefoot offloading shoe as recommended. His blood sugars are improving also with most now below 200. 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 05/10/18. Seen by Dr. Dodd. The patient does not report increased drainage associated with the recurrent and chronic right and left 2nd toe diabetic ulcers since his last visit and he's not yet picked up his Augmentin that's to treat the recent Enterococcus positive wound culture. His blood sugars are well controlled also around 150. 05/03/18. Seen by Dr. Dodd. The patient returns to clinic with recurrence of bilateral 2nd toe diabetic ulcers which is the 3rd recurrence in the past year. His most recent A1c was around '10' according to his and he was off his diabetes medication for an extended period while they were try to re-establish insurance coverage. His blood sugar control historically has been poor. He does not report pain in the toes however the medical technologist clinical does report some purulent drainage. 01/11/18. Seen by Dr. Dodd. The patient does not report increased drainage associated with the chronic right 2nd toe diabetic ulcer since last visit and he's applying topical iodosorb as recommended to manage the chronic maceration. Of note, he's also wearing a silicon sleeve over the toe to help prevent shear and callus. 01/04/18. Seen by Dr. Dodd. The patient reports increased drainage associated with the chronic right 2nd toe diabetic ulcer since last visit. Of note comment blood sugars again are significantly elevated at 270 today he states very few of them are below 200 general. He is also wearing his new diabetic shoes as well as a toe lift on the 2nd toe to help facilitate better offloading due to the significant plantar flexion deformity. 12/28/17. Seen by Dr. Dodd. The patient does not report significant drainage associated with the chronic right second toe diabetic ulcer since his last visit and he is wearing a silicon sleeve over the plantar flexed toe to help reduce shear and callus. He is wearing his offloading shoe as recommended and states his blood sugar control is improving although its still at 200 today in clinic. 12/21/17. Seen by Dr. Dodd. The patient does not report increased drainage or pain associated with chronic right second toe diabetic ulcer since his last visit. 12/14/17. Seen by Dr. Dodd. The patient does not report increased drainage or pain associated with chronic right second toe diabetic ulcer since his last visit. He also states blood sugars are improving with most below 200. 12/07/17. Seen by Dr. Dodd. The patient's wound culture from the right second toe diabetic ulcer taken last week grew Streptococcus. He's completed his course of doxycycline and is continuing to apply topical gentamicin as recommended. His blood sugars however continued to be frequently over 200 which tends to be admittedly due to noncompliance with a diabetic diet. 11/30/17. Seen by KAYLEE Asif. The patient reports pain and swelling associated with right 2nd toe diabetic ulcer that started one day ago. Denies fevers, chills. The patient does not report drainage or pain associated with left 2nd toe diabetic ulcer. The patient currently does not have test strips to check his blood glucose at home but states he is getting some today. 11/23/17. Seen by Dr. Dodd. The patient does not report significant drainage associated with the bilateral 2nd toe diabetic ulcers since his last visit. His blood sugars are over 300 today and he admits to have a candy bar on the way to his visit today. He's unaware of when his last A1c was drawn but feels he's probably overdue regarding this. He's also wearing his toe lifts to address the plantar flexion deformities but feels they may no longer be effective. 11/16/17. Seen by Carlos Jackson PA-C. The patient reports decreased drainage from his bilateral diabetic foot ulcers. He continues to have blood sugar readings above 150. 11/09/17. Seen by Carlos Jackson PA-C. The patient reports his blood sugars continue to be elevated. He is hoping to have his medications adjusted to address this issue in the coming weeks. His ulcer of the right and left toes have had decreased drainage. 11/02/17. Seen by Carlos Jackson PA-C. The patient reports that he continues to have high blood sugars this week and has not yet resumed taking glipizide as instructed. He notes stable drainage from his right and left foot ulcers and would like to procure custom diabetic shoes and inserts to compensate for his deformed feet. His chronic callouses of his feet are unchanged he reports. He continues on Amoxicillin for his ulcer infection which has been causing mild diarrhea. 10/26/17. Seen by Carlos Jackson PA-C. The patient reports that he has run out of his Glipizide, thus his blood sugars have been very high this week. He does not report increased drainage from his ulcers. 10/19/17. Seen by Dr. Dodd. The patient's reports increased drainage from the right second toe diabetic ulcer that was first noticed yesterday. The patient does not report pain at the site nor increased drainage or pain associated with the chronic left second toe diabetic ulcer. 10/12/17. Seen by Carlos Jackson PA-C. The patient again reports high blood sugars this week, with numbers in the 200s. Drainage is not increased from his diabetic foot ulcers. 10/05/17. Seen by Carlos Jackson PA-C. The patient reports high blood sugars this week and stable drainage from his diabetic foot ulcers. The patient is not insured at this time and does not wish to go forward with the CT scan to evaluate for osteomyelitis due to the cost. 09/28/17. Seen by Carlos Jackson PA-C. The patient reports continued redness and swelling of his left 2nd toe. Drainage has been stable from this ulcer. He is on doxycycline currently for an infection of this ulcer. 09/21/17. Seen by Dr. Dodd. The patient returns for clinic following a recent visit to the ER where he was seen for cellulitis of the left second toe associated with recurrence of a distal second toe diabetic ulcer. He is now on Bactrim but feels that the erythema and pain is have not improved. He also reports some drainage associated with the recurrent right second toe diabetic ulcer. Of note, he has plantar flexion deformities of both toes and wears toe lifts to help offset this and help prevent callus formation. 06/02/17. Seen by Dr. Dodd. The patient does not report pain or increased drainage associated with the chronic bilateral second toe diabetic ulcers. 05/26/17. Seen by Dr. Dodd. The patient does not report pain or increased drainage associated with the chronic bilateral second toe diabetic ulcers. He is taking Augmentin for the recurrent MSSA positive wound infections and does not report ever side effects. 05/19/17. Seen by Dr. Dodd. The patient does not report significant drainage associated with the bilateral second toe diabetic foot ulcers since last week. They're also using toe lifts to help offload the significant bilateral 2nd toe plantarflexion deformities. 05/12/17. Seen by Dr. Dodd. The patient does not report significant drainage associated with the bilateral second toe diabetic foot ulcers since last week and he's been applying topical triple antibiotic ointment to the sites as recommended to treat the recent MSSA positive culture. 05/05/17. Seen by Dr. Dodd. The patient does not report significant drainage associated with the bilateral second toe diabetic foot ulcers since last week. His wound culture grew MSSA and he's been wearing his toe lifts as recommended to help off load the distal toes noting the plantarflexion deformity that's contributed to callus formation. 04/28/17. Seen by Dr. Dodd. The patient reports some pain associated with the recently healed right second toe diabetic ulcer and notes that he had inserts placed in his diabetic shoes about a week ago and feels that it may have resulted in increased callus formation at this toe as well as the left second toe. He does not report any pain or associated drainage from the left second toe diabetic ulcer. His blood sugars continue to be well controlled. 04/14/17. Seen by Dr. Dodd. The patient does not report drainage associated with the bilateral second toe diabetic ulcers since last visit. 04/07/17. Seen by Dr. Dodd. The patient does not report significant drainage associated with bilateral second toe diabetic ulcers. He's wearing his toe lifts as recommended and states his blood sugars continue to be well-controlled. 03/31/17. Seen by Dr. Dodd. The patient does not report significant drainage associated with bilateral second toe diabetic ulcers. He's wearing his toe lifts as recommended and states his blood sugars continue to be well-controlled. 03/24/17. Seen by Dr. Dodd. The patient does not report significant drainage associated with the chronic bilateral foot ulcers of the distal second toes. He's wearing toe this as recommended due to the significant plantar flexion deformity of the toe's and his blood sugars continue to be well-controlled. 03/16/17. Seen by Dr. Dodd. The patient returns to clinic with two chronic, right and left 2nd toe diabetic ulcers that started about 1 month ago. He works a full schedule wearing 'work boots' and has been using toe lifts due to plantar flexion of the toes as recommended. He does not report pain or significant drainage from ulcer sites nor fevers or felling unwell in general and his blood sugars are typically well controlled below 150. 05/26/16. Seen by Dr. Dodd. The patient does not report drainage associated with the right second toe diabetic ulcer of the past week. 05/19/16. Seen by Dr. Dodd. The patient does not report significant drainage associated with the right second toe diabetic ulcer of the past week. He continues to wear his toe left as recommended to help offload the ulcer. His blood sugars are well-controlled below 150 consistently and when discussing his morbid obesity he states that he's attempted to lose weight in the past by dieting but has been relatively unsuccessful. 05/12/16. Seen by Dr. Dodd. The patient reports minimal drainage on the right 2nd toe diabetic ulcer dressing throughout the week. 05/05/16. Seen by Dr. Dodd. The patient reports minimal drainage on the right 2nd toe diabetic ulcer dressing throughout the week. He's offloading with a surgical shoe and states most of his blood sugars are below 150. 04/28/16. Seen by Dr. Dodd. The patient does not report pain or significant drainage associated with the chronic right 2nd toe diabetic ulcer over the past week. Of note, he's unable have an MRI to evaluate for osteomyelitis of the toe due to a intracranial clip that was placed a number of years ago. He's also wearing his toe lift as recommended to address the significant plantar flexion that's contributing to the refractory nature of the ulcer. 04/21/16. Seen by Dr. Dodd. The patient does not report significant drainage associated with a chronic right second toe diabetic ulcer of the past week. He also states his blood sugars are consistently below 150. 03/31/16. Seen by Dr. Dodd. The patient does not report significant pain or drainage associated with the chronic right second toe diabetic ulcer over the past week. He is wearing his offloading shoe as recommended and states his blood sugars are mostly below 150. Family History This information was obtained from the patient Cancer - Paternal Grandparents, Heart Disease - Mother, Father, Hypertension - Mother, Stroke - Maternal Grandparents Social History This information was obtained from the patient Former smoker, Caffeine Use - 2 cups, Children - 2 children, Lives in - Primary care, Marital Status - , Occupation - [employer] Past Medical History This information was obtained from the patient Patient has a medical history of: Aneurysm (s/p clip placement) Seizure Disorder Type II Diabetes Hyperlipidemia Hypertension Morbid Obesity Tension pneumothorax Phlebitis Onycholysis Surgical History This information was obtained from the patient Patient has a surgical history of: Aneurysm repair, brain Hernia repair Lung Surgery Complaints and Symptoms This information was obtained from the patient Patient complains of: General Notes: I have reviewed and concur with the Review of Systems and Past Family Social History documents completed by the clinician, I have reviewed and concur with the Wound Assessment document completed by the clinician Integumentary (Hair/Skin/Nails): Open Sore Musculoskeletal: Joint Swelling Neurological: Loss of Protective Sensation Prior Wound History: Drainage, Erythema, Pain Patient denies complaints or symptoms related to: Cardiovascular (Central): Irregular heart beat Cardiovascular (Central/Peripheral): Intermittent Claudication, Lower extremity (leg) resting pain, Lower extremity (leg) swelling Constitutional Symptoms (General Health): Chills, Fever Ear/Nose/Mouth/Throat: Hearing Loss / Aid Gastrointestinal (GI): Nausea / Vomiting Hematologic/Lymphatic: Bleeding / Clotting Disorders, Bleeding Tendency Prior Wound History: Bleeding, Malodor Psychiatric: Depression, Memory Loss Respiratory: Oxygen Use, Shortness of Breath Additional Information Does patient have a history of Cancer? Yes? Complete all questions.: No OBJECTIVE Constitutional BP elevated; Afebrile; Alert and in no distress. Well developed. Alert. Clean appearing.. Height/Length: 75 in (190.5 cm), Weight: 375.3 lbs (170.59 kgs), BMI: 46.9, Temperature: 97.6 ?F (36.44 ?C), Pulse: 72 bpm, Respiratory Rate: 18 breaths/min, Blood Pressure: 156/95 mmHg, Capillary Blood Glucose: 133 mg/dl, Pulse Oximetry: 98 %. Vital Signs Notes: Glucose per patient Ears, Nose, Mouth, and Throat: No clinically significant hearing loss on informal examination. Cardiovascular: 1+ bilateral lower leg edema. Gastrointestinal (GI): Obese. Nondistended.. Musculoskeletal: Significant plantar flexion of right 2nd toe. Significant dorsal flexion of left 2nd toe. Integumentary (Hair, Skin) No periwound erythema, warmth, or significant drainage. No periwound rashes appreciated or noted otherwise.. Refer to appropriate clinician wound documentation for this visit; right and left foot ulcers extend to subcut with bases partially covered with pink granulation, remainder fibrin and slough. Significant amount of callus in the periulcer areas. Wound #6 Left Second Toe is a chronic Gambino Grade 3 Diabetic Ulcer and has received a status of Not Healed. Subsequent wound encounter measurements are 0.7cm length x 0.8cm width x 0.1cm depth, with an area of 0.56 sq cm and a volume of 0.056 cubic cm. No tunneling has been noted. No sinus tract has been noted. Undermining has been noted at 4:00 and ends at 8:00 with a maximum distance of 0.1cm. There is a scant amount of serosanguineous drainage noted which has no odor. The patient reports a wound pain of level 0/10. The wound margin is callus. Wound bed has No epithelialization, No eschar , No slough, No granulation. The periwound skin moisture is normal. The periwound skin color is normal. The periwound skin exhibited: Callus. The periwound skin did not exhibit: Brawny Induration, Edema, Excoriation, Induration, Crepitus, Fluctuance, Friable, Rash. The temperature of the periwound skin is Warm. Periwound skin does not exhibit signs or symptoms of infection. Local Pulse is Doppler. Wound #7 Right Second Toe is a chronic Gambino Grade 3 Diabetic Ulcer and has received a status of Not Healed. Subsequent wound encounter measurements are 0.6cm length x 0.7cm width x 0.1cm depth, with an area of 0.42 sq cm and a volume of 0.042 cubic cm. No tunneling has been noted. No sinus tract has been noted. No undermining has been noted. There is a small amount of serosanguineous drainage noted which has no odor. The patient reports a wound pain of level 2/10. The wound margin is callus. Wound bed has Yes epithelialization, No eschar, No slough, Yes pink, firm granulation. The periwound skin moisture is normal. The periwound skin color is normal. The periwound skin exhibited: Callus. The periwound skin did not exhibit: Brawny Induration, Edema, Excoriation, Induration, Crepitus, Fluctuance, Friable, Rash. The temperature of the periwound skin is Warm. Periwound skin does not exhibit signs or symptoms of infection. Local Pulse is Doppler. Neurological: Cranial nerves grossly intact with symmetric function normal by informal observation.. Additional Information Done outside of center (results scanned in)?: Did have Arterial studies done today on both legs. Doppler ASSESSMENT Active Problems ICD-10 (Encounter Diagnosis) E11.621 - Type 2 diabetes mellitus with foot ulcer (Encounter Diagnosis) L97.512 - Non-pressure chronic ulcer of other part of right foot with fat layer exposed (Encounter Diagnosis) L97.522 - Non-pressure chronic ulcer of other part of left foot with fat layer exposed (Encounter Diagnosis) M20.61 - Acquired deformities of toe(s), unspecified, right foot (Encounter Diagnosis) M20.62 - Acquired deformities of toe(s), unspecified, left foot (Encounter Diagnosis) L84 - Corns and callosities PROCEDURES Wound #6 Wound #6 (Diabetic Ulcer) is located on the left second toe. A skin/ subcutaneous tissue level surgical debridement with a total area debrided of 0.56 sq cm was performed by Benedict Dodd MD. Subcutaneous was removed along with devitalized tissue: callus and slough. The following instrument(s) were used: curette. Pain control was achieved using 4% Lido. A time out was conducted prior to the start of the procedure. A minimal amount of bleeding was controlled with n/a. The procedure was tolerated well with a pain level of 0 throughout and a pain level of 0 following the procedure. Post Debridement Measurements: 0.7cm length x 0.8cm width x 0.2cm depth; with an area of 0.56 sq cm and a volume of 0.112 cubic cm; Wound #7 Wound #7 (Diabetic Ulcer) is located on the right second toe. A skin/ subcutaneous tissue level surgical debridement with a total area debrided of 0.42 sq cm was performed by Benedict Dodd MD. Subcutaneous was removed along with devitalized tissue: callus and slough. The following instrument(s) were used: curette. Pain control was achieved using 4% Lido. A time out was conducted prior to the start of the procedure. A minimal amount of bleeding was controlled with n/a. The procedure was tolerated well with a pain level of 0 throughout and a pain level of 0 following the procedure. Post Debridement Measurements: 0.6cm length x 0.7cm width x 0.2cm depth; with an area of 0.42 sq cm and a volume of 0.084 cubic cm; Additional Information Muscle fascia or bone removed and sent to pathology?: No Muscle fascia or bone removed and sent to pathology?: No PLAN Wound Orders: Wound #6 Left Second Toe Anesthetic Topical Xylocaine to wound bed. - In clinic only. Cleanser Cleanse Wound: - Normal saline and gauze in clinic. May use distilled water at home. May Shower. - Protect in shower with cast protector or plastic bag. Topical Treatments Antibiotic/Antimicrobial Ointment/Cream. - Gentamicin ointment. Dressings Cover and secure with: - Foam and hypafix tape. Change Dressing: - Every other day. Off-Loading Keep weight off: - Left 2nd toe. Wear off loading shoe. Wound #7 Right Second Toe Anesthetic Topical Xylocaine to wound bed. - In clinic only. Cleanser Cleanse Wound: - Normal saline and gauze in clinic. May use distilled water at home. May Shower. - Protect in shower with cast protector or plastic bag. Topical Treatments Antibiotic/Antimicrobial Ointment/Cream. - Gentamicin ointment. Dressings Cover and secure with: - Foam and hypafix tape. Change Dressing: - Every other day. Additional Orders: Follow-Up Appointments Return Appointment: - - One week. Other information: If you develop fever, chills, increased pain, drainage, redness or swelling please call our office. If after hours, respond to the ER. Should you experience any significant changes in your wound(s) or have any questions regarding your home care instructions please contact the wound center @ [phone]. If after hours, contact your primary care physician or go to the hospital emergency room. Scribing Attestation I attest, as the nurse, that I scribed these orders for the physician. General Notes: Please see [facility]. I've reviewed the clinician's documentation and agree with the evaluation and plan as written. In addition the patient's ulcers demonstrate evidence of non-viable devitalized tissue and they will continue to benefit from sharp debridement to help promote granulation and expedite healing. Also, I've referred the patient to [facility] for a left leg BIG LAGOON boot to help better facilitate offloading and reduce the heavy callus formation that's complicating the 2nd toe ulcer healing. Electronic Signature(s) Signed By: Date: Benedict Dodd MD 06/08/2018 09:38:07 Entered By: Benedict Dodd on 06/08/2018 09:34:01
== END ==
PROVIDERS: Family Provider Internal Medicine; PCP Internal Medicine; Visit Provider Internal Medicine
DX: E11.621 Type 2 diabetes mellitus with foot ulcer (principal); L97.512 Non-pressure chronic ulcer of other part of right foot with fat layer exposed; L97.522 Non-pressure chronic ulcer of other part of left foot with fat layer exposed; M20.61 Acquired deformities of toe(s), unspecified, right foot; M20.62 Acquired deformities of toe(s), unspecified, left foot; L84 Corns and callosities
CPT/HCPCS: 11042

== ENCOUNTER → 2018-06-12 08:38 | Outpatient (CLI) | payer OTHER, SELFPAY | PROVIDERS: Family Provider Internal Medicine; PCP Internal Medicine; Visit Provider Internal Medicine | DX: E11.621 Type 2 diabetes mellitus with foot ulcer (principal); L97.512 Non-pressure chronic ulcer of other part of right foot with fat layer exposed; L97.522 Non-pressure chronic ulcer of other part of left foot with fat layer exposed; M20.61 Acquired deformities of toe(s), unspecified, right foot; M20.62 Acquired deformities of toe(s), unspecified, left foot; L84 Corns and callosities | CPT/HCPCS: 11042 ==

== ENCOUNTER → 2018-06-19 10:43 | Outpatient (CLI) | payer OTHER, SELFPAY | PROVIDERS: Family Provider Internal Medicine; PCP Internal Medicine; Visit Provider Internal Medicine | DX: E11.621 Type 2 diabetes mellitus with foot ulcer (principal); L97.512 Non-pressure chronic ulcer of other part of right foot with fat layer exposed; L97.522 Non-pressure chronic ulcer of other part of left foot with fat layer exposed; M20.62 Acquired deformities of toe(s), unspecified, left foot; L84 Corns and callosities | CPT/HCPCS: 11042 ==

== ENCOUNTER → 2018-06-26 08:36 | Outpatient (CLI) | payer OTHER, SELFPAY ==
--- NOTE | 2018-06-26 | OV.WND_ITS ---
Progress Note Details Patient Name: Tomy Chin Patient Number: [id number] PatientPatientDate: 06/26/2018 Clinician: Mary Ny Physician / Echocardiographer: Benedict Dodd SUBJECTIVE Chief Complaint This information was obtained from the patient Diabetic toe ulcers. Allergies codeine (Severity: Severe, Reaction: confusion, lethargy) HPI This information was obtained from the patient 06/26/18. Seen by Dr. Dodd. The patient does not report increased drainage associated with the recurrent and chronic right and left 2nd toe diabetic ulcers since his last visit and he'll be picking up his OSAGE boot today which will further help address the left 2nd toe plantar flexion deformity and offload the ulcer while he's at work. 06/19/18. Seen by Dr. Dodd. The patient does not report increased drainage associated with the recurrent and chronic right and left 2nd toe diabetic ulcers since his last visit however he states there's been increased pain in the left 2nd toe. His left leg OSAGE boot has also been ordered and should arrive in about 1 week. 06/12/18. Seen by Dr. Dodd. The patient does not report increased drainage associated with the recurrent and chronic right and left 2nd toe diabetic ulcers since his last visit. He has an appointment at [facility] this week also to discuss a OSAGE boot to help facilitate better offloading of the left 2nd toe ulcer while at work noting the severe plantar flexion deformity and recurrent callus formation. 06/07/18. Seen by Dr. Dodd. The patient does not report increased drainage associated with the recurrent and chronic right and left 2nd toe diabetic ulcers since his last visit. He's also requesting a referral to orthotics for a OSAGE boot which would help facilitate better offloading while he's at work. 05/31/18. Seen by Dr. Dodd. 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 He has significant plantar foot contractures of both 2nd toes which contributes to callus formation and the recurrent and refractory nature of the ulcers. 05/24/18. Seen by Dr. Dodd. The patient does not report increased drainage associated with the recurrent and chronic right and left 2nd toe diabetic ulcers since his last visit. 05/17/18. Seen by Dr. Dodd. The patient does not report increased drainage associated with the recurrent and chronic right and left 2nd toe diabetic ulcers since his last visit and he's wearing a left forefoot offloading shoe as recommended. His blood sugars are improving also with most now below 200. 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 05/10/18. Seen by Dr. Dodd. The patient does not report increased drainage associated with the recurrent and chronic right and left 2nd toe diabetic ulcers since his last visit and he's not yet picked up his Augmentin that's to treat the recent Enterococcus positive wound culture. His blood sugars are well controlled also around 150. 05/03/18. Seen by Dr. Dodd. The patient returns to clinic with recurrence of bilateral 2nd toe diabetic ulcers which is the 3rd recurrence in the past year. His most recent A1c was around '10' according to his and he was off his diabetes medication for an extended period while they were try to re-establish insurance coverage. His blood sugar control historically has been poor. 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 01/11/18. Seen by Dr. Dodd. The patient does not report increased drainage associated with the chronic right 2nd toe diabetic ulcer since last visit and he's applying topical iodosorb as recommended to manage the chronic maceration. Of note, he's also wearing a silicon sleeve over the toe to help prevent shear and callus. 01/04/18. Seen by Dr. Dodd. The patient reports increased drainage associated with the chronic right 2nd toe diabetic ulcer since last visit. Of note comment blood sugars again are significantly elevated at 270 today he states very few of them are below 200 general. He is also wearing his new diabetic shoes as well as a toe lift on the 2nd toe to help facilitate better offloading due to the significant plantar flexion deformity. 12/28/17. Seen by Dr. Dodd. The patient does not report significant drainage associated with the chronic right second toe diabetic ulcer since his last visit and he is wearing a silicon sleeve over the plantar flexed toe to help reduce shear and callus. He is wearing his offloading shoe as recommended and states his blood sugar control is improving although its still at 200 today in clinic. 12/21/17. Seen by Dr. Dodd. The patient does not report increased drainage or pain associated with chronic right second toe diabetic ulcer since his last visit. 12/14/17. Seen by Dr. Dodd. The patient does not report increased drainage or pain associated with chronic right second toe diabetic ulcer since his last visit. He also states blood sugars are improving with most below 200. 12/07/17. Seen by Dr. Dodd. The patient's wound culture from the right second toe diabetic ulcer taken last week grew Streptococcus. He's completed his course of doxycycline and is continuing to apply topical gentamicin as recommended. His blood sugars however continued to be frequently over 200 which tends to be admittedly due to noncompliance with a diabetic diet. 11/30/17. Seen by KAYLEE Asif. The patient reports pain and swelling associated with right 2nd toe diabetic ulcer that started one day ago. Denies fevers, chills. The patient does not report drainage or pain associated with left 2nd toe diabetic ulcer. The patient currently does not have test strips to check his blood glucose at home but states he is getting some today. 11/23/17. Seen by Dr. Dodd. The patient does not report significant drainage associated with the bilateral 2nd toe diabetic ulcers since his last visit. His blood sugars are over 300 today and he admits to have a candy bar on the way to his visit today. He's unaware of when his last A1c was drawn but feels he's probably overdue regarding this. He's also wearing his toe lifts to address the plantar flexion deformities but feels they may no longer be effective. 11/16/17. Seen by Carlos Jackson PA-C. The patient reports decreased drainage from his bilateral diabetic foot ulcers. He continues to have blood sugar readings above 150. 11/09/17. Seen by Carlos Jackson PA-C. The patient reports his blood sugars continue to be elevated. He is hoping to have his medications adjusted to address this issue in the coming weeks. His ulcer of the right and left toes have had decreased drainage. 11/02/17. Seen by Carlos Jackson PA-C. The patient reports that he continues to have high blood sugars this week and has not yet resumed taking glipizide as instructed. He notes stable drainage from his right and left foot ulcers and would like to procure custom diabetic shoes and inserts to compensate for his deformed feet. His chronic callouses of his feet are unchanged he reports. He continues on Amoxicillin for his ulcer infection which has been causing mild diarrhea. 10/26/17. Seen by Carlos Jackson PA-C. The patient reports that he has run out of his Glipizide, thus his blood sugars have been very high this week. He does not report increased drainage from his ulcers. 10/19/17. Seen by Dr. Dodd. The patient's reports increased drainage from the right second toe diabetic ulcer that was first noticed yesterday. The patient does not report pain at the site nor increased drainage or pain associated with the chronic left second toe diabetic ulcer. 10/12/17. Seen by Carlos Jackson PA-C. The patient again reports high blood sugars this week, with numbers in the 200s. Drainage is not increased from his diabetic foot ulcers. 10/05/17. Seen by Carlos Jackson PA-C. The patient reports high blood sugars this week and stable drainage from his diabetic foot ulcers. The patient is not insured at this time and does not wish to go forward with the CT scan to evaluate for osteomyelitis due to the cost. 09/28/17. Seen by Carlos Jackson PA-C. The patient reports continued redness and swelling of his left 2nd toe. Drainage has been stable from this ulcer. He is on doxycycline currently for an infection of this ulcer. 09/21/17. Seen by Dr. Dodd. The patient returns for clinic following a recent visit to the ER where he was seen for cellulitis of the left second toe associated with recurrence of a distal second toe diabetic ulcer. He is now on Bactrim but feels that the erythema and pain is have not improved. He also reports some drainage associated with the recurrent right second toe diabetic ulcer. Of note, he has plantar flexion deformities of both toes and wears toe lifts to help offset this and help prevent callus formation. 06/02/17. Seen by Dr. Dodd. The patient does not report pain or increased drainage associated with the chronic bilateral second toe diabetic ulcers. 05/26/17. Seen by Dr. Dodd. The patient does not report pain or increased drainage associated with the chronic bilateral second toe diabetic ulcers. He is taking Augmentin for the recurrent MSSA positive wound infections and does not report ever side effects. 05/19/17. Seen by Dr. Dodd. The patient does not report significant drainage associated with the bilateral second toe diabetic foot ulcers since last week. They're also using toe lifts to help offload the significant bilateral 2nd toe plantarflexion deformities. 05/12/17. Seen by Dr. Dodd. The patient does not report significant drainage associated with the bilateral second toe diabetic foot ulcers since last week and he's been applying topical triple antibiotic ointment to the sites as recommended to treat the recent MSSA positive culture. 05/05/17. Seen by Dr. Dodd. The patient does not report significant drainage associated with the bilateral second toe diabetic foot ulcers since last week. His wound culture grew MSSA and he's been wearing his toe lifts as recommended to help off load the distal toes noting the plantarflexion deformity that's contributed to callus formation. 04/28/17. Seen by Dr. Dodd. The patient reports some pain associated with the recently healed right second toe diabetic ulcer and notes that he had inserts placed in his diabetic shoes about a week ago and feels that it may have resulted in increased callus formation at this toe as well as the left second toe. He does not report any pain or associated drainage from the left second toe diabetic ulcer. His blood sugars continue to be well controlled. 04/14/17. Seen by Dr. Dodd. The patient does not report drainage associated with the bilateral second toe diabetic ulcers since last visit. 04/07/17. Seen by Dr. Dodd. The patient does not report significant drainage associated with bilateral second toe diabetic ulcers. He's wearing his toe lifts as recommended and states his blood sugars continue to be well-controlled. 03/31/17. Seen by Dr. Dodd. The patient does not report significant drainage associated with bilateral second toe diabetic ulcers. He's wearing his toe lifts as recommended and states his blood sugars continue to be well-controlled. 03/24/17. Seen by Dr. Dodd. The patient does not report significant drainage associated with the chronic bilateral foot ulcers of the distal second toes. He's wearing toe this as recommended due to the significant plantar flexion deformity of the toe's and his blood sugars continue to be well-controlled. 03/16/17. Seen by Dr. Dodd. The patient returns to clinic with two chronic, right and left 2nd toe diabetic ulcers that started about 1 month ago. He works a full schedule wearing 'work boots' and has been using toe lifts due to plantar flexion of the toes as recommended. He does not report pain or significant drainage from ulcer sites nor fevers or felling unwell in general and his blood sugars are typically well controlled below 150. 05/26/16. Seen by Dr. Dodd. The patient does not report drainage associated with the right second toe diabetic ulcer of the past week. 05/19/16. Seen by Dr. Dodd. The patient does not report significant drainage associated with the right second toe diabetic ulcer of the past week. He continues to wear his toe left as recommended to help offload the ulcer. His blood sugars are well-controlled below 150 consistently and when discussing his morbid obesity he states that he's attempted to lose weight in the past by dieting but has been relatively unsuccessful. 05/12/16. Seen by Dr. Dodd. The patient reports minimal drainage on the right 2nd toe diabetic ulcer dressing throughout the week. 05/05/16. Seen by Dr. Dodd. The patient reports minimal drainage on the right 2nd toe diabetic ulcer dressing throughout the week. He's offloading with a surgical shoe and states most of his blood sugars are below 150. 04/28/16. Seen by Dr. Dodd. The patient does not report pain or significant drainage associated with the chronic right 2nd toe diabetic ulcer over the past week. Of note, he's unable have an MRI to evaluate for osteomyelitis of the toe due to a intracranial clip that was placed a number of years ago. He's also wearing his toe lift as recommended to address the significant plantar flexion that's contributing to the refractory nature of the ulcer. 04/21/16. Seen by Dr. Dodd. The patient does not report significant drainage associated with a chronic right second toe diabetic ulcer of the past week. He also states his blood sugars are consistently below 150. 03/31/16. Seen by Dr. Dodd. The patient does not report significant pain or drainage associated with the chronic right second toe diabetic ulcer over the past week. He is wearing his offloading shoe as recommended and states his blood sugars are mostly below 150. Past Medical History This information was obtained from the patient Patient has a medical history of: Aneurysm (s/p clip placement) Seizure Disorder Type II Diabetes Hyperlipidemia Hypertension Morbid Obesity Tension pneumothorax Phlebitis Onycholysis Complaints and Symptoms This information was obtained from the patient Patient complains of: General Notes: I have reviewed and concur with the Review of Systems and Past Family Social History documents completed by the clinician, I have reviewed and concur with the Wound Assessment document completed by the clinician Integumentary (Hair/Skin/Nails): Open Sore Musculoskeletal: Joint Swelling Neurological: Loss of Protective Sensation Prior Wound History: Drainage, Erythema, Pain Patient denies complaints or symptoms related to: Cardiovascular (Central): Irregular heart beat Cardiovascular (Central/Peripheral): Intermittent Claudication, Lower extremity (leg) resting pain, Lower extremity (leg) swelling Constitutional Symptoms (General Health): Chills, Fever Ear/Nose/Mouth/Throat: Hearing Loss / Aid Gastrointestinal (GI): Nausea / Vomiting Hematologic/Lymphatic: Bleeding / Clotting Disorders, Bleeding Tendency Prior Wound History: Bleeding, Malodor Psychiatric: Depression, Memory Loss Respiratory: Oxygen Use, Shortness of Breath Additional Information Does patient have a history of Cancer? Yes? Complete all questions.: No OBJECTIVE Constitutional BP elevated; Afebrile; Alert and in no distress. Well developed. Alert. Clean appearing.. Height/Length: 75 in (190.5 cm), Weight: 380.2 lbs (172.82 kgs), BMI: 47.5, Temperature: 98.0 ?F (36.67 ?C), Pulse: 70 bpm, Respiratory Rate: 18 breaths/min, Blood Pressure: 149/90 mmHg, Capillary Blood Glucose: 172 mg/dl, Pulse Oximetry: 99 %. Vital Signs Notes: Glucose per patient Ears, Nose, Mouth, and Throat: No clinically significant hearing loss on informal examination. Cardiovascular: 1+ bilateral lower leg edema. Gastrointestinal (GI): Obese. Nondistended.. Integumentary (Hair, Skin) No periwound erythema, warmth, or significant drainage. No periwound rashes appreciated or noted otherwise.. Refer to appropriate clinician wound documentation for this visit; right and left foot ulcers extend to subcut with bases partially covered with pink granulation, remainder fibrin and slough. Maceration and callus present in the periwound areas. Wound #6 Left Second Toe is a chronic Gambino Grade 2 Diabetic Ulcer and has received a status of Not Healed. Subsequent wound encounter measurements are 0.6cm length x 0.7cm width x 0.1cm depth, with an area of 0.42 sq cm and a volume of 0.042 cubic cm. No tunneling has been noted. No sinus tract has been noted. No undermining has been noted. There is a scant amount of serous drainage noted which has no odor. The patient reports a wound pain of level 0/10. The wound margin is callus. Wound bed has No epithelialization, No eschar, No slough, Yes bright red, pink, firm granulation. The periwound skin moisture is normal. The periwound skin color is normal. The periwound skin exhibited: Callus. The periwound skin did not exhibit: Brawny Induration, Edema, Excoriation, Induration, Crepitus, Fluctuance, Friable, Rash. The temperature of the periwound skin is Warm. Periwound skin does not exhibit signs or symptoms of infection. Local Pulse is Doppler. Wound #7 Right Second Toe is a chronic Gambino Grade 2 Diabetic Ulcer and has received a status of Not Healed. Subsequent wound encounter measurements are 0.9cm length x 0.8cm width x 0.2cm depth, with an area of 0.72 sq cm and a volume of 0.144 cubic cm. No tunneling has been noted. No sinus tract has been noted. No undermining has been noted. There is a scant amount of serous drainage noted which has no odor. The patient reports a wound pain of level 0/10. The wound margin is callus. Wound bed has Yes epithelialization, No eschar, No slough, Yes bright red, pink, firm granulation. The periwound skin color is normal. The periwound skin exhibited: Callus, Maceration. The periwound skin did not exhibit: Brawny Induration, Edema, Excoriation, Induration, Crepitus, Fluctuance, Friable, Rash, Dry/Scaly, Moist. The temperature of the periwound skin is Warm. Periwound skin does not exhibit signs or symptoms of infection. Local Pulse is Doppler. Neurological: Cranial nerves grossly intact with symmetric function normal by informal observation.. Additional Information Done outside of center (results scanned in)?: Did have Arterial studies done today on both legs. Doppler ASSESSMENT Active Problems ICD-10 (Encounter Diagnosis) E11.621 - Type 2 diabetes mellitus with foot ulcer (Encounter Diagnosis) L97.512 - Non-pressure chronic ulcer of other part of right foot with fat layer exposed (Encounter Diagnosis) L97.522 - Non-pressure chronic ulcer of other part of left foot with fat layer exposed (Encounter Diagnosis) M20.62 - Acquired deformities of toe(s), unspecified, left foot (Encounter Diagnosis) L84 - Corns and callosities PROCEDURES Wound #6 Wound #6 (Diabetic Ulcer) is located on the left second toe. A skin/ subcutaneous tissue level surgical debridement with a total area debrided of 0.42 sq cm was performed by Benedict Dodd MD. Subcutaneous was removed along with devitalized tissue: callus and slough. The following instrument(s) were used: curette. Pain control was achieved using 4% Lido. A time out was conducted prior to the start of the procedure. A minimal amount of bleeding was controlled with n/a. The procedure was tolerated well with a pain level of 0 throughout and a pain level of 0 following the procedure. Post Debridement Measurements: 0.6cm length x 0.7cm width x 0.1cm depth; with an area of 0.42 sq cm and a volume of 0.042 cubic cm; Wound #7 Wound #7 (Diabetic Ulcer) is located on the right second toe. A skin/ subcutaneous tissue level surgical debridement with a total area debrided of 0.72 sq cm was performed by Benedict Dodd MD. Subcutaneous was removed along with devitalized tissue: callus and slough. The following instrument(s) were used: curette. Pain control was achieved using 4% Lido. A time out was conducted prior to the start of the procedure. A minimal amount of bleeding was controlled with n/a. The procedure was tolerated well with a pain level of 0 throughout and a pain level of 0 following the procedure. Post Debridement Measurements: 0.9cm length x 0.8cm width x 0.3cm depth; with an area of 0.72 sq cm and a volume of 0.216 cubic cm; Additional Information Muscle fascia or bone removed and sent to pathology?: No Muscle fascia or bone removed and sent to pathology?: No PLAN I've reviewed the clinician's documentation and agree with the evaluation and plan as written. In addition the patient's ulcers demonstrate evidence of non-viable devitalized tissue and they will continue to benefit from sharp debridement to help promote granulation and expedite healing. Electronic Signature(s) Signed By: Date: Benedict Dodd MD 06/29/2018 07:29:40 Entered By: Benedict Dodd on 06/29/2018 07:28:38
== END ==
PROVIDERS: Family Provider Internal Medicine; PCP Internal Medicine; Visit Provider Internal Medicine
DX: E11.621 Type 2 diabetes mellitus with foot ulcer (principal); L97.512 Non-pressure chronic ulcer of other part of right foot with fat layer exposed; L97.522 Non-pressure chronic ulcer of other part of left foot with fat layer exposed; M20.62 Acquired deformities of toe(s), unspecified, left foot; L84 Corns and callosities
CPT/HCPCS: 11042

== ENCOUNTER → 2018-07-03 09:04 | Outpatient (CLI) | payer OTHER, SELFPAY ==
--- NOTE | 2018-07-03 | OV.WND_ITS ---
Progress Note Details Patient Name: Tomy Chin Patient Number: [id number] PatientPatientDate: 07/03/2018 Clinician: Jolanta Neal Clinician Cosigner: Cami Bell Physician / Community Product Specialist: Benedict Dodd SUBJECTIVE Chief Complaint This information was obtained from the patient Diabetic toe ulcers. Allergies codeine (Severity: Severe, Reaction: confusion, lethargy) HPI This information was obtained from the patient 07/03/18. Seen by Dr. Dodd. The patient does not report increased drainage associated with the recurrent and chronic right and left 2nd toe diabetic ulcers since his last visit. He picked up his left lower leg RED DEVIL boot but has only worn it once and needed an adjustment due to some rubbing at the top of the boot. Otherwise he states the left second toe pain is much improved while wearing the boot. 06/26/18. Seen by Dr. Dodd. The patient does not report increased drainage associated with the recurrent and chronic right and left 2nd toe diabetic ulcers since his last visit and he'll be picking up his RED DEVIL boot today which will further help address the left 2nd toe plantar flexion deformity and offload the ulcer while he's at work. 06/19/18. Seen by Dr. Dodd. The patient does not report increased drainage associated with the recurrent and chronic right and left 2nd toe diabetic ulcers since his last visit however he states there's been increased pain in the left 2nd toe. His left leg RED DEVIL boot has also been ordered and should arrive in about 1 week. 06/12/18. Seen by Dr. Dodd. The patient does not report increased drainage associated with the recurrent and chronic right and left 2nd toe diabetic ulcers since his last visit. He has an appointment at [facility] this week also to discuss a RED DEVIL boot to help facilitate better offloading of the left 2nd toe ulcer while at work noting the severe plantar flexion deformity and recurrent callus formation. 06/07/18. Seen by Dr. Dodd. The patient does not report increased drainage associated with the recurrent and chronic right and left 2nd toe diabetic ulcers since his last visit. He's also requesting a referral to orthotics for a RED DEVIL boot which would help facilitate better offloading while he's at work. 05/31/18. Seen by Dr. Dodd. 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 He has significant plantar foot contractures of both 2nd toes which contributes to callus formation and the recurrent and refractory nature of the ulcers. 05/24/18. Seen by Dr. Dodd. The patient does not report increased drainage associated with the recurrent and chronic right and left 2nd toe diabetic ulcers since his last visit. 05/17/18. Seen by Dr. Dodd. The patient does not report increased drainage associated with the recurrent and chronic right and left 2nd toe diabetic ulcers since his last visit and he's wearing a left forefoot offloading shoe as recommended. His blood sugars are improving also with most now below 200. 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 05/10/18. Seen by Dr. Dodd. The patient does not report increased drainage associated with the recurrent and chronic right and left 2nd toe diabetic ulcers since his last visit and he's not yet picked up his Augmentin that's to treat the recent Enterococcus positive wound culture. His blood sugars are well controlled also around 150. 05/03/18. Seen by Dr. Dodd. The patient returns to clinic with recurrence of bilateral 2nd toe diabetic ulcers which is the 3rd recurrence in the past year. His most recent A1c was around '10' according to his and he was off his diabetes medication for an extended period while they were try to re-establish insurance coverage. His blood sugar control historically has been poor. 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 01/11/18. Seen by Dr. Dodd. The patient does not report increased drainage associated with the chronic right 2nd toe diabetic ulcer since last visit and he's applying topical iodosorb as recommended to manage the chronic maceration. Of note, he's also wearing a silicon sleeve over the toe to help prevent shear and callus. 01/04/18. Seen by Dr. Dodd. The patient reports increased drainage associated with the chronic right 2nd toe diabetic ulcer since last visit. Of note comment blood sugars again are significantly elevated at 270 today he states very few of them are below 200 general. He is also wearing his new diabetic shoes as well as a toe lift on the 2nd toe to help facilitate better offloading due to the significant plantar flexion deformity. 12/28/17. Seen by Dr. Dodd. The patient does not report significant drainage associated with the chronic right second toe diabetic ulcer since his last visit and he is wearing a silicon sleeve over the plantar flexed toe to help reduce shear and callus. He is wearing his offloading shoe as recommended and states his blood sugar control is improving although its still at 200 today in clinic. 12/21/17. Seen by Dr. Dodd. The patient does not report increased drainage or pain associated with chronic right second toe diabetic ulcer since his last visit. 12/14/17. Seen by Dr. Dodd. The patient does not report increased drainage or pain associated with chronic right second toe diabetic ulcer since his last visit. He also states blood sugars are improving with most below 200. 12/07/17. Seen by Dr. Dodd. The patient's wound culture from the right second toe diabetic ulcer taken last week grew Streptococcus. He's completed his course of doxycycline and is continuing to apply topical gentamicin as recommended. His blood sugars however continued to be frequently over 200 which tends to be admittedly due to noncompliance with a diabetic diet. 11/30/17. Seen by KAYLEE Asif. The patient reports pain and swelling associated with right 2nd toe diabetic ulcer that started one day ago. Denies fevers, chills. The patient does not report drainage or pain associated with left 2nd toe diabetic ulcer. The patient currently does not have test strips to check his blood glucose at home but states he is getting some today. 11/23/17. Seen by Dr. Dodd. The patient does not report significant drainage associated with the bilateral 2nd toe diabetic ulcers since his last visit. His blood sugars are over 300 today and he admits to have a candy bar on the way to his visit today. He's unaware of when his last A1c was drawn but feels he's probably overdue regarding this. He's also wearing his toe lifts to address the plantar flexion deformities but feels they may no longer be effective. 11/16/17. Seen by Carlos Jackson PA-C. The patient reports decreased drainage from his bilateral diabetic foot ulcers. He continues to have blood sugar readings above 150. 11/09/17. Seen by Carlos Jackson PA-C. The patient reports his blood sugars continue to be elevated. He is hoping to have his medications adjusted to address this issue in the coming weeks. His ulcer of the right and left toes have had decreased drainage. 11/02/17. Seen by Carlos Jackson PA-C. The patient reports that he continues to have high blood sugars this week and has not yet resumed taking glipizide as instructed. He notes stable drainage from his right and left foot ulcers and would like to procure custom diabetic shoes and inserts to compensate for his deformed feet. His chronic callouses of his feet are unchanged he reports. He continues on Amoxicillin for his ulcer infection which has been causing mild diarrhea. 10/26/17. Seen by Carlos Jackson PA-C. The patient reports that he has run out of his Glipizide, thus his blood sugars have been very high this week. He does not report increased drainage from his ulcers. 10/19/17. Seen by Dr. Dodd. The patient's reports increased drainage from the right second toe diabetic ulcer that was first noticed yesterday. The patient does not report pain at the site nor increased drainage or pain associated with the chronic left second toe diabetic ulcer. 10/12/17. Seen by Carlos Jackson PA-C. The patient again reports high blood sugars this week, with numbers in the 200s. Drainage is not increased from his diabetic foot ulcers. 10/05/17. Seen by Carlos Jackson PA-C. The patient reports high blood sugars this week and stable drainage from his diabetic foot ulcers. The patient is not insured at this time and does not wish to go forward with the CT scan to evaluate for osteomyelitis due to the cost. 09/28/17. Seen by Carlos Jackson PA-C. The patient reports continued redness and swelling of his left 2nd toe. Drainage has been stable from this ulcer. He is on doxycycline currently for an infection of this ulcer. 09/21/17. Seen by Dr. Dodd. The patient returns for clinic following a recent visit to the ER where he was seen for cellulitis of the left second toe associated with recurrence of a distal second toe diabetic ulcer. He is now on Bactrim but feels that the erythema and pain is have not improved. He also reports some drainage associated with the recurrent right second toe diabetic ulcer. Of note, he has plantar flexion deformities of both toes and wears toe lifts to help offset this and help prevent callus formation. 06/02/17. Seen by Dr. Dodd. The patient does not report pain or increased drainage associated with the chronic bilateral second toe diabetic ulcers. 05/26/17. Seen by Dr. Dodd. The patient does not report pain or increased drainage associated with the chronic bilateral second toe diabetic ulcers. He is taking Augmentin for the recurrent MSSA positive wound infections and does not report ever side effects. 05/19/17. Seen by Dr. Dodd. The patient does not report significant drainage associated with the bilateral second toe diabetic foot ulcers since last week. They're also using toe lifts to help offload the significant bilateral 2nd toe plantarflexion deformities. 05/12/17. Seen by Dr. Dodd. The patient does not report significant drainage associated with the bilateral second toe diabetic foot ulcers since last week and he's been applying topical triple antibiotic ointment to the sites as recommended to treat the recent MSSA positive culture. 05/05/17. Seen by Dr. Dodd. The patient does not report significant drainage associated with the bilateral second toe diabetic foot ulcers since last week. His wound culture grew MSSA and he's been wearing his toe lifts as recommended to help off load the distal toes noting the plantarflexion deformity that's contributed to callus formation. 04/28/17. Seen by Dr. Dodd. The patient reports some pain associated with the recently healed right second toe diabetic ulcer and notes that he had inserts placed in his diabetic shoes about a week ago and feels that it may have resulted in increased callus formation at this toe as well as the left second toe. He does not report any pain or associated drainage from the left second toe diabetic ulcer. His blood sugars continue to be well controlled. 04/14/17. Seen by Dr. Dodd. The patient does not report drainage associated with the bilateral second toe diabetic ulcers since last visit. 04/07/17. Seen by Dr. Dodd. The patient does not report significant drainage associated with bilateral second toe diabetic ulcers. He's wearing his toe lifts as recommended and states his blood sugars continue to be well-controlled. 03/31/17. Seen by Dr. Dodd. The patient does not report significant drainage associated with bilateral second toe diabetic ulcers. He's wearing his toe lifts as recommended and states his blood sugars continue to be well-controlled. 03/24/17. Seen by Dr. Dodd. The patient does not report significant drainage associated with the chronic bilateral foot ulcers of the distal second toes. He's wearing toe this as recommended due to the significant plantar flexion deformity of the toe's and his blood sugars continue to be well-controlled. 03/16/17. Seen by Dr. Dodd. The patient returns to clinic with two chronic, right and left 2nd toe diabetic ulcers that started about 1 month ago. He works a full schedule wearing 'work boots' and has been using toe lifts due to plantar flexion of the toes as recommended. He does not report pain or significant drainage from ulcer sites nor fevers or felling unwell in general and his blood sugars are typically well controlled below 150. 05/26/16. Seen by Dr. Dodd. The patient does not report drainage associated with the right second toe diabetic ulcer of the past week. 05/19/16. Seen by Dr. Dodd. The patient does not report significant drainage associated with the right second toe diabetic ulcer of the past week. He continues to wear his toe left as recommended to help offload the ulcer. His blood sugars are well-controlled below 150 consistently and when discussing his morbid obesity he states that he's attempted to lose weight in the past by dieting but has been relatively unsuccessful. 05/12/16. Seen by Dr. Dodd. The patient reports minimal drainage on the right 2nd toe diabetic ulcer dressing throughout the week. 05/05/16. Seen by Dr. Dodd. The patient reports minimal drainage on the right 2nd toe diabetic ulcer dressing throughout the week. He's offloading with a surgical shoe and states most of his blood sugars are below 150. 04/28/16. Seen by Dr. Dodd. The patient does not report pain or significant drainage associated with the chronic right 2nd toe diabetic ulcer over the past week. Of note, he's unable have an MRI to evaluate for osteomyelitis of the toe due to a intracranial clip that was placed a number of years ago. He's also wearing his toe lift as recommended to address the significant plantar flexion that's contributing to the refractory nature of the ulcer. 04/21/16. Seen by Dr. Dodd. The patient does not report significant drainage associated with a chronic right second toe diabetic ulcer of the past week. He also states his blood sugars are consistently below 150. 03/31/16. Seen by Dr. Dodd. The patient does not report significant pain or drainage associated with the chronic right second toe diabetic ulcer over the past week. He is wearing his offloading shoe as recommended and states his blood sugars are mostly below 150. Past Medical History This information was obtained from the patient Patient has a medical history of: Aneurysm (s/p clip placement) Seizure Disorder Type II Diabetes Hyperlipidemia Hypertension Morbid Obesity Tension pneumothorax Phlebitis Onycholysis Complaints and Symptoms This information was obtained from the patient Patient complains of: General Notes: I have reviewed and concur with the Review of Systems and Past Family Social History documents completed by the clinician, I have reviewed and concur with the Wound Assessment document completed by the clinician Integumentary (Hair/Skin/Nails): Open Sore Musculoskeletal: Joint Swelling Neurological: Loss of Protective Sensation Prior Wound History: Drainage, Erythema, Pain Patient denies complaints or symptoms related to: Cardiovascular (Central): Irregular heart beat Cardiovascular (Central/Peripheral): Intermittent Claudication, Lower extremity (leg) resting pain, Lower extremity (leg) swelling Constitutional Symptoms (General Health): Chills, Fever Ear/Nose/Mouth/Throat: Hearing Loss / Aid Gastrointestinal (GI): Nausea / Vomiting Hematologic/Lymphatic: Bleeding / Clotting Disorders, Bleeding Tendency Prior Wound History: Bleeding, Malodor Psychiatric: Depression, Memory Loss Respiratory: Oxygen Use, Shortness of Breath Additional Information Does patient have a history of Cancer? Yes? Complete all questions.: No OBJECTIVE Constitutional BP elevated; Afebrile; Alert and in no distress. Well developed. Alert. Clean appearing.. Height/Length: 75 in (190.5 cm), Weight: 381.1 lbs (173.23 kgs), BMI: 47.6, Temperature: 97.9 ?F (36.61 ?C), Pulse: 76 bpm, Respiratory Rate: 18 breaths/min, Blood Pressure: 146/86 mmHg, Capillary Blood Glucose: 241 mg/dl, Pulse Oximetry: 97 %. Vital Signs Notes: Glucose taken in clinic. Cardiovascular: 1+ bilateral lower leg edema. Gastrointestinal (GI): Obese. Nondistended.. Integumentary (Hair, Skin) No periwound erythema, warmth, or significant drainage. No periwound rashes appreciated or noted otherwise.. Refer to appropriate clinician wound documentation for this visit; right and left foot ulcers extend to subcut with bases partially covered with pink granulation, remainder fibrin and slough. Moderate amount of callus in the periulcer areas. Wound #6 Left Second Toe is a chronic Gambino Grade 2 Diabetic Ulcer and has received a status of Not Healed. Subsequent wound encounter measurements are 0.5cm length x 0.5cm width x 0.1cm depth, with an area of 0.25 sq cm and a volume of 0.025 cubic cm. No tunneling has been noted. No sinus tract has been noted. No undermining has been noted. There is a small amount of serosanguineous drainage noted which has no odor. The patient reports a wound pain of level 0/10. The wound margin is callus. Wound bed has Yes epithelialization, No eschar, No slough, Yes bright red, pink, firm granulation. The periwound skin moisture is normal. The periwound skin color is normal. The periwound skin exhibited: Callus. The periwound skin did not exhibit: Brawny Induration, Edema, Excoriation, Induration, Crepitus, Fluctuance, Friable, Rash. The temperature of the periwound skin is Warm. Periwound skin does not exhibit signs or symptoms of infection. Local Pulse is Doppler. Wound #7 Right Second Toe is a chronic Gambino Grade 2 Diabetic Ulcer and has received a status of Not Healed. Subsequent wound encounter measurements are 0.5cm length x 0.5cm width x 0.1cm depth, with an area of 0.25 sq cm and a volume of 0.025 cubic cm. No tunneling has been noted. No sinus tract has been noted. No undermining has been noted. There is a small amount of serosanguineous drainage noted which has no odor. The patient reports a wound pain of level 0/10. The wound margin is callus. Wound bed has Yes epithelialization, No eschar, No slough, Yes bright red, pink, firm granulation. The periwound skin moisture is normal. The periwound skin color is normal. The periwound skin exhibited: Callus. The periwound skin did not exhibit: Brawny Induration, Edema, Excoriation, Induration, Crepitus, Fluctuance, Friable, Rash. The temperature of the periwound skin is Warm. Periwound skin does not exhibit signs or symptoms of infection. Local Pulse is Doppler. Neurological: Cranial nerves grossly intact with symmetric function normal by informal observation.. Additional Information Done outside of center (results scanned in)?: Did have Arterial studies done today on both legs. Doppler ASSESSMENT Active Problems ICD-10 (Encounter Diagnosis) E11.621 - Type 2 diabetes mellitus with foot ulcer (Encounter Diagnosis) L97.512 - Non-pressure chronic ulcer of other part of right foot with fat layer exposed (Encounter Diagnosis) L97.522 - Non-pressure chronic ulcer of other part of left foot with fat layer exposed PROCEDURES Wound #6 Wound #6 (Diabetic Ulcer) is located on the left second toe. A skin/ subcutaneous tissue level surgical debridement with a total area debrided of 0.3 sq cm was performed by Benedict Dodd MD. Subcutaneous was removed along with devitalized tissue: callus. The following instrument(s) were used: curette. Pain control was achieved using 4% Lido. A time out was conducted prior to the start of the procedure. A minimal amount of bleeding was controlled with n/a. The procedure was tolerated well with a pain level of 0 throughout and a pain level of 0 following the procedure. Post Debridement Measurements: 0.5cm length x 0.6cm width x 0.1cm depth; with an area of 0.3 sq cm and a volume of 0.03 cubic cm; Wound #7 Wound #7 (Diabetic Ulcer) is located on the right second toe. A skin/ subcutaneous tissue level surgical debridement with a total area debrided of 0.35 sq cm was performed by Benedict Dodd MD. Subcutaneous was removed along with devitalized tissue: callus. The following instrument(s) were used: curette. Pain control was achieved using 4% Lido. A time out was conducted prior to the start of the procedure. A minimal amount of bleeding was controlled with n/a. The procedure was tolerated well with a pain level of 0 throughout and a pain level of 0 following the procedure. Post Debridement Measurements: 0.5cm length x 0.7cm width x 0.1cm depth; with an area of 0.35 sq cm and a volume of 0.035 cubic cm; Additional Information Muscle fascia or bone removed and sent to pathology?: No Muscle fascia or bone removed and sent to pathology?: No PLAN Wound Orders: Wound #6 Left Second Toe Anesthetic Topical Xylocaine to wound bed. - In clinic only. Cleanser Cleanse Wound: - Normal saline and gauze in clinic. May use distilled water at home. May Shower. - Protect in shower with cast protector or plastic bag. Topical Treatments Antibiotic/Antimicrobial Ointment/Cream. - Iodosorb. Dressings Cover and secure with: - Foam and hypafix tape. Toe Lift. Change Dressing: - Every other day. Off-Loading Keep weight off: - Left foot as much as possible. Use/Wear when Walking: - [place] Boot. Scribing Attestation I attest, as the nurse, that I scribed these orders for the physician. Wound #7 Right Second Toe Anesthetic Topical Xylocaine to wound bed. - In clinic only. Cleanser Cleanse Wound: - Normal saline and gauze in clinic. May use distilled water at home. May Shower. - Protect in shower with cast protector or plastic bag. Topical Treatments Antibiotic/Antimicrobial Ointment/Cream. - Iodosorb. Dressings Cover and secure with: - Foam and hypafix tape. Toe Lift. Change Dressing: - Every other day. Off-Loading Keep weight off: - Right foot as much as possible. Scribing Attestation I attest, as the nurse, that I scribed these orders for the physician. Additional Orders: Follow-Up Appointments Return Appointment: - - One week. Other information: If you develop fever, chills, increased pain, drainage, redness or swelling please call our office. If after hours, respond to the ER. Should you experience any significant changes in your wound(s) or have any questions regarding your home care instructions please contact the wound center @ [phone]. If after hours, contact your primary care physician or go to the hospital emergency room. Other Services and Therapies: Orthotics - Referral made for right foot table mountain boot. I've reviewed the clinician's documentation and agree with the evaluation and plan as written. In addition the patient's ulcers demonstrate evidence of non-viable devitalized tissue and they will continue to benefit from sharp debridement to help promote granulation and expedite healing. Electronic Signature(s) Signed By: Date: Benedict Dodd MD 07/04/2018 07:09:40 Entered By: Benedict Dodd on 07/04/2018 07:05:43
== END ==
PROVIDERS: Family Provider Internal Medicine; PCP Internal Medicine; Visit Provider Internal Medicine
DX: E11.621 Type 2 diabetes mellitus with foot ulcer (principal); L97.512 Non-pressure chronic ulcer of other part of right foot with fat layer exposed; L97.522 Non-pressure chronic ulcer of other part of left foot with fat layer exposed
CPT/HCPCS: 11042

== ENCOUNTER → 2018-07-10 09:34 | Outpatient (CLI) | payer OTHER, SELFPAY | PROVIDERS: Family Provider Internal Medicine; PCP Internal Medicine; Visit Provider Family Medicine | DX: E11.621 Type 2 diabetes mellitus with foot ulcer (principal); L97.512 Non-pressure chronic ulcer of other part of right foot with fat layer exposed; L97.522 Non-pressure chronic ulcer of other part of left foot with fat layer exposed; I89.0 Lymphedema, not elsewhere classified | CPT/HCPCS: 11042 ==

== ENCOUNTER → 2018-07-16 11:57 | Outpatient (CLI) | payer OTHER, SELFPAY ==
--- NOTE | 2018-07-16 | DI.RAD.S_ITS ---
PROCEDURE: XR TOE RT MIN 2V INDICATIONS: EVALUATE FOR OSTEOMYLITIS TECHNIQUE: 3 views of the second toe(s) acquired. COMPARISON: None. FINDINGS: Bones: No fractures or dislocations. No suspicious bony lesions. Soft tissues: No suspicious soft tissue densities. There is prominent soft tissue swelling over the second digit distally. IMPRESSION: Prominent soft tissue at the second digit distally swelling but no osteomyelitis or gas in the soft tissues is found. Dictated by: Virgilio Angela M.D. on 07/16/2018 at 13:02 Approved by: Virgilio Angela M.D. on 07/16/2018 at 13:02
--- NOTE | 2018-07-16 | DI.RAD.S_ITS ---
PROCEDURE: XR TOE LT MIN 2V INDICATIONS: EVALUATE FOR OSTEOMYLITIS TECHNIQUE: 3 views of the second toe(s) acquired. COMPARISON: None. FINDINGS: Bones: No fractures or dislocations. No suspicious bony lesions. Soft tissues: No suspicious soft tissue densities, but there is prominent soft tissue swelling over the second digit distally. IMPRESSION: Second digit soft tissue swelling without osteomyelitis are visualized gas in the soft tissues. Dictated by: Virgilio Angela M.D. on 07/16/2018 at 13:02 Approved by: Virgilio Angela M.D. on 07/16/2018 at 13:03
[2018-07-16 12:23] LABS: Add Manual Diff / Slide Review NO; Basophils Percent Auto 0.5 % (0-2); Eosinophils Percent Auto 0.3 % (2-4); Hematocrit 43.4 % (41-53); Hemoglobin 14.9 g/dL (13.5-17.5); Lymphocytes Percent Auto 38.1 % (25-40); Mean Corpuscular HGB Conc 34.3 % (30-36); Mean Corpuscular Volume 87.5 fL (80-100); Monocytes Percent Auto 6.9 % (3-14); Neutrophils Absolute Auto 3100 /uL (3000-5900); Neutrophils Percent Auto 54.2 % (50-75); Platelet Count 226 X10^3/uL (150-400); Red Blood Cell Count 4.97 X10^6/uL (4.5-5.9); Red Cell Distribution Width 13.7 % (11.6-14.8); White Blood Cell Count 5.7 X10^3/uL (4.5-11.0)
[2018-07-16 12:36] LABS: Hemoglobin A1C% w Est Avg Glu 8.9 % (4.0-6.0)
[2018-07-16 12:42] LABS: Erythrocyte Sedimentation Rate 18 MM/HR (0-15)
[2018-07-16 13:25] LABS: Alanine Aminotransferase 28 IU/L (21-72); Albumin 4.3 g/dL (3.5-5.0); Albumin Globulin Ratio 1.2 (1.0-2.8); Alkaline Phosphatase 107 U/L (38-126); Aspartate Aminotransferase 25 IU/L (17-59); Bilirubin Total 0.4 mg/dL (0.2-1.3); Blood Urea Nitrogen 11 mg/dL (9-20); C-Reactive Protein Quant 1.4 mg/dL (<1.0); Calcium 8.9 mg/dL (8.4-10.2); Carbon Dioxide 27 mmol/L (22-32); Chloride 100 mmol/L (98-107); Estimated Glomerular Filt Rate > 60.0 mL/min (>60); Globulin 3.5 g/dL (1.7-4.1); Glucose 203 mg/dL (70-100); HEMOLYSIS < 15 (0-50); Potassium 4.3 mmol/L (3.4-5.1); Sodium 138 mmol/L (137-145); Total Protein 7.8 g/dL (6.3-8.2)
[2018-07-16 13:30] LABS: Prealbumin 23.7 mg/dL (17.6-36.0)
== END ==
PROVIDERS: Family Provider Internal Medicine; Visit Provider Family Medicine
DX: E11.621 Type 2 diabetes mellitus with foot ulcer (principal)
CPT/HCPCS: 36415; 73660; 80053; 83036; 84134; 85025; 85651; 86140

== ENCOUNTER → 2018-07-17 09:01 | Outpatient (CLI) | payer OTHER, SELFPAY | PROVIDERS: Family Provider Internal Medicine; PCP Internal Medicine; Visit Provider Family Medicine | DX: E11.621 Type 2 diabetes mellitus with foot ulcer (principal); L97.512 Non-pressure chronic ulcer of other part of right foot with fat layer exposed; L97.522 Non-pressure chronic ulcer of other part of left foot with fat layer exposed | CPT/HCPCS: 11042; 99213 ==

== ENCOUNTER → 2018-07-31 13:54 | Outpatient (CLI) | payer OTHER, SELFPAY | PROVIDERS: Family Provider Internal Medicine; PCP Internal Medicine; Visit Provider Family Medicine | DX: E11.621 Type 2 diabetes mellitus with foot ulcer (principal); L97.512 Non-pressure chronic ulcer of other part of right foot with fat layer exposed; L97.522 Non-pressure chronic ulcer of other part of left foot with fat layer exposed | CPT/HCPCS: 11042 ==

== ENCOUNTER 2019-01-18 13:22 | Inpatient (IN) | payer SELFPAY ==
[2019-01-18] VITALS (20 sets, daily range): BP systolic 91–122; BP diastolic 42–79; PULSE 83–149; RESP 12–24; TEMP 36.4–36.6; O2SAT 93–99; BMI 48.2
--- NOTE | 2019-01-18 | DI.ECHO.S_ITS ---
[place] [facility]---------+ [facility] +---------+ : : [address] : : : : [id number] : : : : Phone: [phone] Echocardiogram Report + + :Name: SURAJ MANZANO Study Date: 01/19/2019 Height: 73 in : :[facility] Exam Location: IS Weight: 385 lb : : Gender: Male BSA: 2.8 m2 : :: 1970 Age: 48 yrs BP: 126/75 mmHg: :Reason For Study: Atrial Flutter : :Ordering Physician: Juanita : :Hospitalist Performed By: Mile Herrera : :Referring: Zachary BYNUM E : + + Interpretation Summary The left ventricle is grossly normal size. Difficult to assess LVEF due to atrial fibrillation and qbmc-uh-cuip variability. Left ventricular systolic function is moderate to severely reduced. Left ventricular ejection fraction is estimated to be 30 +/- 5%. There is moderate to severe global hypokinesis of the left ventricle. 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 Cardiology consult is recommended. The right ventricle is not well visualized. Pulmonary artery pressures cannot be estimated because of the lack of a measurable TR jet velocity. Both atria are normal in size. There is no significant valvular heart disease. The aortic root is normal size. Procedure: A two-dimensional transthoracic echocardiogram with color flow and Doppler was performed. The study quality was technically difficult. There is no prior echocardiogram noted for this patient. The patient was imaged in a supine position and was unbale to be repositioned for the exam. The patient was in atrial fibrillation with heart rates between 146-150 bpm during the exam. Left Ventricle: The left ventricle is grossly normal size. Difficult to assess LVEF due to atrial fibrillation and eyik-hd-onto variability. Left ventricular systolic function is moderate to severely reduced. Left ventricular ejection fraction is estimated to be 30 +/- 5%. There is moderate to severe global hypokinesis of the left ventricle. Diastolic function could not be accurately assessed due to atrial fibrillation. Right Ventricle: The right ventricle is not well visualized. Atria: Both atria are normal in size. Mitral Valve: The mitral valve is normal in structure and function. There is trace mitral regurgitation. Aortic Valve: The aortic valve is trileaflet. The aortic valve opens well. No aortic regurgitation is present. Tricuspid Valve: The tricuspid valve is normal in structure and function. There is a trace or physiologic amount of tricuspid regurgitation. Pulmonary artery pressures cannot be estimated because of the lack of a measurable TR jet velocity. Pulmonic Valve: The pulmonic valve is not well visualized. There is a trace or physiologic amount of pulmonic regurgitation. There is no significant valvular heart disease. Great Vessels: The aortic root is normal size. The ascending aorta could not be visualized. The inferior vena cava was not well visualized. Pericardium/ Pleura There is an anterior echo-free space consistent with a fat pad. There is no pericardial effusion. There is no pleural effusion. MMode/2D Measurements & Calculations LVOT diam: 2.5 cm LA A2 area: 15.3 cm2 Ao root diam: 3.9 cm LA A4 area: 21.5 cm2 Ao Arch Diam (Prox Trans): 3.1 cm LA length (vol): 4.8 cm LA vol: 58.2 ml LA vol index: 20.5 ml/m2 RA long axis: 4.3 cm RA area: 16.0 cm2 RA vol: 50.7 ml RA : 17.8 ml/m2 Doppler Measurements & Calculations Ao V2 max: 83.0 cm/sec LVOT Max Guillermo: 83.2 cm/sec Ao V2 mean: 63.5 cm/sec LV V1 max P.8 mmHg Ao max P.8 mmHg LV V1 VTI: 13.0 cm Ao mean P.8 mmHg TOMAS(I,D): 5.4 cm2 Ao V2 VTI: 12.0 cm TOMAS(V,D): 5.0 cm2 sev ratio: 1.1 TOMAS indexed to BSA (cm^2/m^2): 1.9 SV(LVOT): 64.2 ml Reading Physician:03:04 PM
--- NOTE | 2019-01-18 13:32 | DI.RAD.S_ITS ---
PROCEDURE: XR CHEST 1V INDICATIONS: chest pain TECHNIQUE: One view of the chest was acquired. COMPARISON: [facility], , CHEST 1 VIEW, 07/16/2014, 12:16. FINDINGS: Surgical changes and devices: None. Lungs and pleura: The aeration of the lungs appears similar to the previous study. No new areas of consolidation are present. No large effusion or pneumothorax is evident. Mediastinum: Mediastinal contours appear normal. Heart size is normal. Bones and chest wall: No suspicious bony lesions. Overlying soft tissues appear unremarkable. IMPRESSION: Stable chest. No acute cardiopulmonary process is evident. Dictated by: Hector Pena M.D. on 01/18/2019 at 13:32 Approved by: Hector Pena M.D. on 01/18/2019 at 13:34
--- NOTE | 2019-01-18 13:40 | ED_ITS ---
HPI - Chest Pain General Chief Complaint: Chest Pain Stated Complaint: chest pain and SOB Time Seen by Provider: 01/18/19 13:32 Source: patient Mode of arrival: ambulatory Limitations: no limitations History of Present Illness HPI narrative: The patient is a 48-year-old male who presents with chest discomfort and shortness of breath ongoing for the last 2 days. His states that she noted his heart rate daily in the 130 today however increased about 149 but seems regular. He is noted to be atrial flutter is with RVR no history of atrial flutter. He says he started feeling it while he was work. He gets short of breath whenever he is walking gets occasional chest discomfort but overall has not been feeling good. MD complaint: chest pain Related Data Previous Rx's Medication Instructions Recorded sulfamethoxazole-trimethoprim 1 tab PO BID 10 Days #0 tab 09/18/17 Allergies Allergy/AdvReac Type Severity Reaction Status Date / Time codeine Allergy Unknown HALLUCINATE Verified 01/18/19 13:31 Review of Systems Review of Systems ROS Unobtainable: All systems reviewed & are unremarkable except as noted in HPI and below Constitutional Denies chills, Denies fever(s), Denies lethargy and Denies weakness Eyes Denies change in vision, Denies eye discharge, Denies irritation and Denies loss of vision Cardiovascular Reports chest pain, Reports rapid heart rate, Reports lightheadedness and Reports dyspnea Respiratory Denies cough, Denies hemoptysis, Reports dyspnea and Denies wheezing Gastrointestinal Gastrointestinal: Denies abdominal pain, Denies change in bowel habits, Denies diarrhea, Denies nausea and Denies vomiting Genitourinary Denies hematuria, Denies flank pain, Denies urinary incontinence and Denies urinary urgency Musculoskeletal Denies back pain, Denies muscle weakness, Denies numbness and Denies tingling Integumentary/Breasts Denies pruritus, Denies erythema, Denies rash and Denies wounds Neurologic Denies loss of vision, Denies numbness, Denies tingling and Denies weakness Allergic/Immunologic Denies wheezing FORMERLY [facility], 1928–1983 Medical History Diabetes (Acute) Recurrent spontaneous pneumothorax (Acute) Surgical History H/O craniotomy (Acute) History of appendectomy (Acute) History of lung surgery (Acute) Family History (Updated 01/18/19 @ 16:52 by Zachary Carlson MD) Mother Hypertension Father Hypertension Congestive heart failure Social History Smoking Status: Former smoker Family History Mother Hypertension Father Hypertension Congestive heart failure Social History Smoking Status: Former smoker Exam Initial Vital Signs Initial Vital Signs: Vital Signs Temperature 97.9 F 01/18/19 13:24 Pulse Rate 135 H 01/18/19 13:24 Respiratory Rate 17 01/18/19 13:24 Blood Pressure 112/79 01/18/19 13:24 Pulse Oximetry 97 01/18/19 13:24 GENERAL: Alert male appears older than stated age slightly pale overweight HEENT: Head atraumatic,EOMI, pupils reactive, CARDIOVASCULAR: Regular rate tachycardic RESPIRATORY: Breath sounds equal bilaterally, no wheezes rales or rhonchi. ABDOMEN: Soft, nontender. Normoactive bowel sounds all 4 quadrants. No guarding or rebound. : No CVA tenderness EXTREMITIES: Normal range of motion, no clubbing or edema. Neurovascularly intact NEUROLOGICAL: Alert and oriented x4.Normal gait and speech. Cranial nerves II through XII grossly intact. SKIN: Warm, dry, no laceration, no petechiae, no rashes or lesions. Course Orders Ordered: ED Orders 01/18/19 13:30 Thyroid Stimulating Hormone Stat 01/18/19 13:32 XR chest 1V Stat EKG-12 Lead Stat 01/18/19 13:35 Complete Blood Count AUTO DIFF Stat Comprehensive Metabolic Panel Stat Lipase Stat Partial Thromboplastin Time Stat Prothrombin Time INR Stat Troponin & CK Cardiac Panel Stat 01/18/19 14:19 EKG-12 Lead Routine 01/18/19 14:34 EKG-12 Lead Routine 01/18/19 14:54 CT angio chest PE protocol Stat 01/18/19 18:31 MRSA PCR Urgent 01/19/19 B Type Natriuretic Peptide Routine Basic Metabolic Panel Routine Complete Blood Count AUTO DIFF Routine Hemoglobin A1C% w Est Avg Glu Routine Troponin I Routine Dextrose (D50w) 25 gm IV PRN PRN; Protocol PRN Reason: Hypoglycemia Digoxin (Lanoxin) 250 mcg IV Q6H SRIDEVI Stop: 01/19/19 00:31 Enoxaparin Sodium (Lovenox) 40 mg SUBCUT DAILY SRIDEVI DILTIAZEM (Diltiazem 125 Mg/125 Ml-D5w) 125 mg in 125 mls @ 5 mls/hr IV TITRATE SRIDEVI; Protocol Last Titration: 01/18/19 17:50 Dose: 15 mg/hr, 15 mls/hr Titration: 01/18/19 17:46 Dose: 10 mg/hr, 10 mls/hr Titration: 01/18/19 16:20 Dose: 10 mg/hr, 10 mls/hr Admin: 01/18/19 15:35 Dose: 5 mg/hr, 5 mls/hr Sodium Chloride (Normal Saline 0.9%) 1,000 mls @ 150 mls/hr IV CONT SRIDEVI Last Infusion: 01/18/19 17:47 Dose: 150 mls/hr Admin: 01/18/19 15:40 Dose: 150 mls/hr Sodium Chloride (Normal Saline 0.9%) 1,000 mls @ 100 mls/hr IV CONT SRIDEVI Insulin Aspart (Novolog Flexpen) 0 unit SUBCUT ACHS SRIDEVI; Protocol Discontinued Medications Diltiazem HCl (Cardizem) 10 mg IV NOW ONE Stop: 01/18/19 13:46 Last Admin: 01/18/19 13:45 Dose: 10 mg Diltiazem HCl (Cardizem) 10 mg IV NOW ONE Stop: 01/18/19 13:51 Last Admin: 01/18/19 14:25 Dose: 10 mg Sodium Chloride (Normal Saline 0.9%) 1,000 mls @ 1,000 mls/hr IV BOLUS ONE Stop: 01/18/19 14:44 Last Infusion: 01/18/19 14:47 Dose: 0 mls/hr Admin: 01/18/19 13:48 Dose: 1,000 mls/hr Metoprolol Tartrate (Lopressor) 5 mg IV NOW ONE Stop: 01/18/19 13:54 Last Admin: 01/18/19 13:58 Dose: 5 mg Metoprolol Tartrate (Lopressor) 5 mg IV NOW ONE Stop: 01/18/19 14:12 Last Admin: 01/18/19 14:12 Dose: 5 mg Vital Signs - 8 hr 01/18/19 13:24 01/18/19 13:45 01/18/19 13:49 Temperature 97.9 F Pulse Rate 135 H 149 H 149 H Respiratory Rate 17 15 Blood Pressure 112/79 112/79 Blood Pressure [Left Arm] 98/65 Pulse Oximetry 97 93 01/18/19 14:01 01/18/19 14:14 01/18/19 14:25 Temperature Pulse Rate 148 H 145 H 144 H Respiratory Rate 16 20 Blood Pressure 101/74 Blood Pressure [Left Arm] 104/68 104/72 Pulse Oximetry 94 94 01/18/19 14:31 01/18/19 15:06 01/18/19 15:37 Temperature Pulse Rate 108 H 117 H 146 H Respiratory Rate 20 13 17 Blood Pressure Blood Pressure [Left Arm] 107/61 110/60 95/62 Pulse Oximetry 97 98 96 01/18/19 15:47 01/18/19 16:08 01/18/19 16:43 Temperature Pulse Rate 146 H 146 H 148 H Respiratory Rate 22 18 Blood Pressure Blood Pressure [Left Arm] 98/55 L 91/70 97/67 Pulse Oximetry 97 97 97 01/18/19 17:04 Temperature Pulse Rate 148 H Respiratory Rate 24 Blood Pressure Blood Pressure [Left Arm] 106/67 Pulse Oximetry 99 MDM - Chest Pain Lab Data Attestation: I reviewed the patient's lab results. Result diagrams: 01/18/19 13:35 01/18/19 13:35 Lab Results 01/18/19 01/18/19 01/18/19 Range/Units 13:30 13:35 13:35 WBC 8.2 (4.5-11.0) X10^3/uL RBC 5.23 (4.5-5.9) X10^6/uL Hgb 15.9 (13.5-17.5) g/dL Hct 46.1 (41-53) % MCV 88.2 (80-100) fL MCH 30.4 (26-34) PG MCHC 34.5 (30-36) % RDW 13.7 (11.6-14.8) % Plt Count 240 (150-400) X10^3/uL Neut % (Auto) 62.9 (50-75) % Lymph % (Auto) 30.5 (25-40) % Hamlin % (Auto) 6.0 (3-14) % Eos % (Auto) 0.1 L (2-4) % Baso % (Auto) 0.5 (0-2) % Neut # (Auto) 5200 (8744-8900) /uL Lymph # (Auto) 2500 (1443-5476) /uL Hamlin # (Auto) 500 (0-900) /uL Eos # (Auto) 0 (0-450) /uL Baso # (Auto) 0 (0-100) /uL PT 10.7 (10.1-12.7) SECONDS INR 0.9 (0.9-1.3) APTT 28 (26.4-36.2) SECONDS Sodium (137-145) mmol/L Potassium (3.4-5.1) mmol/L Chloride (98-107) mmol/L Carbon Dioxide (22-32) mmol/L BUN (9-20) mg/dL Creatinine (0.66-1.25) mg/dL Estimated GFR (>60) mL/min BUN/Creatinine Ratio (6-22) Glucose (70-100) mg/dL Calcium (8.4-10.2) mg/dL Total Bilirubin (0.2-1.3) mg/dL AST (17-59) IU/L ALT (21-72) IU/L Alkaline Phosphatase (38-126) U/L Total Creatine Kinase (55-170) U/L CK-MB (CK-2) (<2.37) ng/mL CK-MB (CK-2) Rel Index (1.5-5.0) % Troponin I (0.01-0.034) ng/mL Total Protein (6.3-8.2) g/dL Albumin (3.5-5.0) g/dL Globulin (1.7-4.1) g/dL Albumin/Globulin Ratio (1.0-2.8) Lipase (23-300) U/L TSH 1.78 (0.47-4.68) uIU/mL 01/18/19 Range/Units 13:35 WBC (4.5-11.0) X10^3/uL RBC (4.5-5.9) X10^6/uL Hgb (13.5-17.5) g/dL Hct (41-53) % MCV (80-100) fL MCH (26-34) PG MCHC (30-36) % RDW (11.6-14.8) % Plt Count (150-400) X10^3/uL Neut % (Auto) (50-75) % Lymph % (Auto) (25-40) % Hamlin % (Auto) (3-14) % Eos % (Auto) (2-4) % Baso % (Auto) (0-2) % Neut # (Auto) (9828-5101) /uL Lymph # (Auto) (7701-6492) /uL Hamlin # (Auto) (0-900) /uL Eos # (Auto) (0-450) /uL Baso # (Auto) (0-100) /uL PT (10.1-12.7) SECONDS INR (0.9-1.3) APTT (26.4-36.2) SECONDS Sodium 136 L (137-145) mmol/L Potassium 4.5 (3.4-5.1) mmol/L Chloride 99 (98-107) mmol/L Carbon Dioxide 26 (22-32) mmol/L BUN 21 H (9-20) mg/dL Creatinine 0.70 (0.66-1.25) mg/dL Estimated GFR > 60.0 (>60) mL/min BUN/Creatinine Ratio 30.0 H (6-22) Glucose 252 H (70-100) mg/dL Calcium 9.7 (8.4-10.2) mg/dL Total Bilirubin 0.4 (0.2-1.3) mg/dL AST 26 (17-59) IU/L ALT 32 (21-72) IU/L Alkaline Phosphatase 110 (38-126) U/L Total Creatine Kinase 164 (55-170) U/L CK-MB (CK-2) 4.27 H (<2.37) ng/mL CK-MB (CK-2) Rel Index 2.6 (1.5-5.0) % Troponin I < 0.012 (0.01-0.034) ng/mL Total Protein 7.8 (6.3-8.2) g/dL Albumin 4.4 (3.5-5.0) g/dL Globulin 3.4 (1.7-4.1) g/dL Albumin/Globulin Ratio 1.3 (1.0-2.8) Lipase 75 (23-300) U/L TSH (0.47-4.68) uIU/mL Imaging Data Chest x-ray: Radiologist's impression: PROCEDURE: XR CHEST 1V INDICATIONS: chest pain TECHNIQUE: One view of the chest was acquired. COMPARISON: [facility], CHEST 1 VIEW, 07/16/2014, 12:16. FINDINGS: Surgical changes and devices: None. Lungs and pleura: The aeration of the lungs appears similar to the previous study. No new areas of consolidation are present. No large effusion or pneumothorax is evident. Mediastinum: Mediastinal contours appear normal. Heart size is normal. Bones and chest wall: No suspicious bony lesions. Overlying soft tissues appear unremarkable. IMPRESSION: Stable chest. No acute cardiopulmonary process is evident. Dictated by: Hector Pena M.D. on 01/18/2019 at 13:32 CT scan - chest: Radiologist's impression: PROCEDURE: CT ANGIO CHEST PE PROTOCOL INDICATIONS: chest pain sob new atrial flutter TECHNIQUE: After the administration of intravenous contrast, 2 mm thick sections acquired from the pulmonary apices to the posterior costophrenic angles. 3-dimensional maximum intensity projection (MIP) coronal and sagittal reformats were then acquired through the thorax. For radiation dose reduction, the following was used: automated exposure control, adjustment of mA and/or kV according to patient size. COMPARISON: [facility], XR CHEST 1V, 01/18/2019, 13:48. FINDINGS: Image quality: Diagnostic. Pulmonary arteries: Pulmonary arteries are normal in size, and demonstrate no intraluminal filling defects to suggest central pulmonary embolism. Lungs and pleura: Mild scarring is present within the lung apices. There is minimal atelectasis within the lung bases. There is no focal consolidation, effusion, or pneumothorax. Mediastinum: Heart size is normal, without pericardial effusion. No mediastinal or hilar adenopathy. Coronary and aortic atherosclerosis is present. Thoracic aorta is normal in caliber and enhancement. Esophagus is normal in caliber. There is a small hiatal hernia. Bones and chest wall: No suspicious bony lesions. Ribs and thoracic spine appear intact throughout. Thyroid gland is not enlarged. No axillary or supraclavicular adenopathy. Abdomen: The liver is hypodense when compared to the spleen. Otherwise, the included portions of the upper abdomen are unremarkable. IMPRESSION: 1. No evidence of pulmonary emboli. 2. Mild atelectasis and scarring within the lungs. No acute cardiopulmonary process is evident. 2. Small hiatal hernia. 4. Coronary and aortic atherosclerosis. Dictated by: Hector Pena M.D. on 01/18/2019 at 14:08 ECG Data Attestation: I personally reviewed and interpreted this ECG as follows: Prior ECG tracings: available for review Interpretation: EKG 1. Atrial flutter rate 149 no previous atrial flutter EKG 2. Atrial flutter rate [address] changes EKG 3. Atrial flutter rate [address] changes MDM Narrative Medical decision making narrative: Patient initially given 10 mg of Cardizem blood pressure dropped to a systolic under 100 and did not change heart rate at all. He was then given multiple doses of Lopressor which changed his heart rate some but blood pressure tolerated a little bit better. He was given another 10 mg of Cardizem which decreased his heart rate improved his blood pressure. Rate much better but patient is now complaining of severe chest pain and shortness of breath. Decision for CT to rule out PE and dissection His heart rate started to increase, placed on a diltiazem drip. Not responding well to diltiazem drip. Patient is not a candidate for cardioversion symptoms have been ongoing for last [address] Carlson agrees with ICU and admission. Discharge Plan Departure Patient Disposition: Admitted As Inpatient Clinical Impression: Atrial flutter with rapid ventricular response Discharge Date/Time: 01/18/19 17:47 Interventions: ED Discharge Assessment Last Done: 01/18/19 17:47 Admit Date/Time: 01/18/19 15:42 Admit Provider: Zachary Carlson
[2019-01-18 13:45] LABS: Add Manual Diff / Slide Review NO; Basophils Absolute Auto 0 /uL (0-100); Basophils Percent Auto 0.5 % (0-2); Eosinophils Absolute Auto 0 /uL (0-450); Eosinophils Percent Auto 0.1 % (2-4); Hematocrit 46.1 % (41-53); Hemoglobin 15.9 g/dL (13.5-17.5); Lymphocytes Absolute Auto 2500 /uL (1100-4500); Lymphocytes Percent Auto 30.5 % (25-40); Mean Corpuscular HGB Conc 34.5 % (30-36); Mean Corpuscular Hemoglobin 30.4 PG (26-34); Mean Corpuscular Volume 88.2 fL (80-100); Monocytes Absolute Auto 500 /uL (0-900); Neutrophils Absolute Auto 5200 /uL (1500-7000); Neutrophils Percent Auto 62.9 % (50-75); Platelet Count 240 X10^3/uL (150-400); Red Blood Cell Count 5.23 X10^6/uL (4.5-5.9); Red Cell Distribution Width 13.7 % (11.6-14.8); White Blood Cell Count 8.2 X10^3/uL (4.5-11.0)
[2019-01-18] MEDS: dilTIAZem 5 MG/ML SDV 10 MG IV ×2 (13:45→14:25)
[2019-01-18] MEDS: SODIUM CHLORIDE 0.9% 1,000 ML 1000 ML IV (13:48)
[2019-01-18 13:55] LABS: INR 0.9 (0.9-1.3); Prothrombin Time 10.7 SECONDS (10.1-12.7)
[2019-01-18 13:58] LABS: PTT Partial Thromboplastin Tim 28 SECONDS (26.4-36.2)
[2019-01-18] MEDS: METOPROLOL TARTRATE 5 MG/5 ML INJ IV ×2 (13:58→14:12)
[2019-01-18 14:04] LABS: Alanine Aminotransferase 32 IU/L (21-72); Albumin 4.4 g/dL (3.5-5.0); Albumin Globulin Ratio 1.3 (1.0-2.8); Alkaline Phosphatase 110 U/L (38-126); Aspartate Aminotransferase 26 IU/L (17-59); Bilirubin Total 0.4 mg/dL (0.2-1.3); Blood Urea Nitrogen 21 mg/dL (9-20); Calcium 9.7 mg/dL (8.4-10.2); Carbon Dioxide 26 mmol/L (22-32); Chloride 99 mmol/L (98-107); Creatine Kinase 164 U/L (55-170); Estimated Glomerular Filt Rate > 60.0 mL/min (>60); Globulin 3.4 g/dL (1.7-4.1); Glucose 252 mg/dL (70-100); HEMOLYSIS < 15 (0-50); Lipase 75 U/L (23-300); Potassium 4.5 mmol/L (3.4-5.1); Sodium 136 mmol/L (137-145); Total Protein 7.8 g/dL (6.3-8.2)
[2019-01-18 14:16] LABS: Troponin I < 0.012 ng/mL (0.01-0.034)
[2019-01-18 14:20] LABS: CKMB % Relative Index 2.6 % (1.5-5.0); Creatine Kinase MB 4.27 ng/mL (<2.37)
--- NOTE | 2019-01-18 14:21 | PC.NURSE ---
pt developed sharp chest pain / . increase sob. pulse ox 94%, reports pain is not stopping. ekg.done. dr. larsen at bedside
--- NOTE | 2019-01-18 14:54 | DI.CT.S_ITS ---
PROCEDURE: CT ANGIO CHEST PE PROTOCOL INDICATIONS: chest pain sob new atrial flutter TECHNIQUE: After the administration of intravenous contrast, 2 mm thick sections acquired from the pulmonary apices to the posterior costophrenic angles. 3-dimensional maximum intensity projection (MIP) coronal and sagittal reformats were then acquired through the thorax. For radiation dose reduction, the following was used: automated exposure control, adjustment of mA and/or kV according to patient size. COMPARISON: [facility], CR, XR CHEST 1V, 01/18/2019, 13:48. FINDINGS: Image quality: Diagnostic. Pulmonary arteries: Pulmonary arteries are normal in size, and demonstrate no intraluminal filling defects to suggest central pulmonary embolism. Lungs and pleura: Mild scarring is present within the lung apices. There is minimal atelectasis within the lung bases. There is no focal consolidation, effusion, or pneumothorax. Mediastinum: Heart size is normal, without pericardial effusion. No mediastinal or hilar adenopathy. Coronary and aortic atherosclerosis is present. Thoracic aorta is normal in caliber and enhancement. Esophagus is normal in caliber. There is a small hiatal hernia. Bones and chest wall: No suspicious bony lesions. Ribs and thoracic spine appear intact throughout. Thyroid gland is not enlarged. No axillary or supraclavicular adenopathy. Abdomen: The liver is hypodense when compared to the spleen. Otherwise, the included portions of the upper abdomen are unremarkable. IMPRESSION: 1. No evidence of pulmonary emboli. 2. Mild atelectasis and scarring within the lungs. No acute cardiopulmonary process is evident. 2. Small hiatal hernia. 4. Coronary and aortic atherosclerosis. Dictated by: Hector Pena M.D. on 01/18/2019 at 14:08 Approved by: Hector Pena M.D. on 01/18/2019 at 14:16
[2019-01-18] MEDS: DILTIAZEM 125 MG/125 ML PIGGYBACK IV (15:35)
[2019-01-18] MEDS: SODIUM CHLORIDE 0.9% 1,000 ML 150 ML IV (15:40)
--- NOTE | 2019-01-18 16:44 | PM.HP.1 ---
History of Present Illness Date Patient Seen: 01/18/19 Time Patient Seen: 16:44 Chief complaint: chest pain and SOB Narrative: This is a 48-year-old male with new onset of Atrial Flutter with RVR. The onset was yesterday morning as he was getting ready to go to work. 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 He felt a sudden substernal sharp pain and then felt very tired. He stayed home from work but whenever he moved around or tried to do anything he became very fatigued. He was aware of palpitations and he was also short of breath. The pain did not radiate anywhere. There was no abdominal pain or nausea. He has no history of coronary artery disease, atrial fibrillation, atrial flutter etc. There is a family history of heart disease in his father and he is treated for diabetes mellitus. He has no history of peripheral arterial disease, CVA, hypertension or hyperlipidemia. His EKG and telemetry apparently showed atrial flutter with rapid ventricular response with initial heart rate of 149 here. He was treated with diltiazem 10 mg and then with some Lopressor IV and then another dose of diltiazem getting his heart rate down to 115. At that point he was put on a diltiazem drip. A CT angiogram was negative for pulmonary embolus. He had been experiencing some pain between the shoulder blades also. He has not been cardioverted because the symptoms began more than 24 hours ago. Patient History Medical History (Updated 01/18/19 @ 16:52 by Zachary Carlson MD) Diabetes (Acute) Recurrent spontaneous pneumothorax (Acute) Surgical History (Updated 01/18/19 @ 16:52 by Zachary Carlson MD) H/O craniotomy (Acute) History of appendectomy (Acute) History of lung surgery (Acute) Family History (Updated 01/18/19 @ 16:52 by Zachary Carlson MD) Mother Hypertension Father Hypertension Congestive heart failure Social History Smoking Status: Former smoker Family & Social History Family History (Updated 01/18/19 @ 16:52 by Zachary Carlson MD) Mother Hypertension Father Hypertension Congestive heart failure Safety & Behavioral: Feels Safe in Current Yes Environment Been Physically Hurt or No Threatened By a Person Tobacco & Substance use: Smoking Status Former smoker alcohol intake frequency holiday/special occasion Substance Use Type does not use Meds Home Medications Medication Instructions Recorded Confirmed Type sulfamethoxazole-trimethoprim 1 tab PO BID 10 Days #0 tab 09/18/17 Rx Allergies Allergy/AdvReac Type Severity Reaction Status Date / Time codeine Allergy Unknown HALLUCINATE Verified 01/18/19 13:31 Review of Systems Review of Systems Positive for chest pain, shortness of breath, palpitations, fatigue. Negative for fevers, chills, sweats, nausea, vomiting, abdominal pain, seizures, rash, bleeding, joint pain, headaches, new allergies, trouble talking. All systems reviewed & are unremarkable except as noted in HPI and below Exam Vital Signs (past 8 hours): - 01/18/19 13:24 01/18/19 13:45 01/18/19 13:49 Temperature 97.9 F Pulse Rate 135 H 149 H 149 H Respiratory Rate 17 15 Blood Pressure 112/79 112/79 Blood Pressure [Left Arm] 98/65 Pulse Oximetry 97 93 01/18/19 14:01 01/18/19 14:14 01/18/19 14:25 Temperature Pulse Rate 148 H 145 H 144 H Respiratory Rate 16 20 Blood Pressure 101/74 Blood Pressure [Left Arm] 104/68 104/72 Pulse Oximetry 94 94 01/18/19 14:31 01/18/19 15:06 01/18/19 15:37 Temperature Pulse Rate 108 H 117 H 146 H Respiratory Rate 20 13 17 Blood Pressure Blood Pressure [Left Arm] 107/61 110/60 95/62 Pulse Oximetry 97 98 96 01/18/19 15:47 01/18/19 16:08 01/18/19 16:43 Temperature Pulse Rate 146 H 146 H 148 H Respiratory Rate 22 18 Blood Pressure Blood Pressure [Left Arm] 98/55 L 91/70 97/67 Pulse Oximetry 97 97 97 Oxygen Delivery Method Room Air Oxygen Flow Rate 2 Narrative Exam Narrative: He is alert and oriented x3, no apparent distress Pupils are equally round and reactive to light and accommodation. Extraocular muscles are intact. Sclerae are pink and nonicteric. Heart is tachycardic and regular rhythm without murmur. Lungs are clear to auscultation bilaterally. Abdomen is very obese, bowel sounds positive, nontender, no organomegaly, large periumbilical hernia present. Extremities have no ankle edema. Skin no rash or jaundice. Neuro exam. Cranial nerves 2-12 tested intact. Motor function is 4/5 throughout. Deep tendon reflexes are symmetrically hypo active in the both lower extremities. Gait and balance are not tested. Objective Labs Result Diagrams: 01/18/19 13:35 01/18/19 13:35 Labs: Laboratory Results - last 24 hr 01/18/19 01/18/19 01/18/19 13:35 13:35 13:35 WBC 8.2 RBC 5.23 Hgb 15.9 Hct 46.1 MCV 88.2 MCH 30.4 MCHC 34.5 RDW 13.7 Plt Count 240 Neut % (Auto) 62.9 Lymph % (Auto) 30.5 [place] % (Auto) 6.0 Eos % (Auto) 0.1 L Baso % (Auto) 0.5 Neut # (Auto) 5200 Lymph # (Auto) 2500 [place] # (Auto) 500 Eos # (Auto) 0 Baso # (Auto) 0 PT 10.7 INR 0.9 APTT 28 Sodium 136 L Potassium 4.5 Chloride 99 Carbon Dioxide 26 BUN 21 H Creatinine 0.70 Estimated GFR > 60.0 BUN/Creatinine Ratio 30.0 H Glucose 252 H Calcium 9.7 Total Bilirubin 0.4 AST 26 ALT 32 Alkaline Phosphatase 110 Total Creatine Kinase 164 CK-MB (CK-2) 4.27 H CK-MB (CK-2) Rel Index 2.6 Troponin I < 0.012 Total Protein 7.8 Albumin 4.4 Globulin 3.4 Albumin/Globulin Ratio 1.3 Lipase 75 Assessment & Plan (1) Diabetes: Current visit: Yes Status: Acute Assessment & Plan narrative: Atrial flutter with rapid ventricular response -monitor on telemetry and check TSH -echocardiogram is ordered -begin Lovenox -continue diltiazem drip in the intensive care unit -if not converting/responding in the next few hours we will touch base with Cardiology by phone. Diabetes mellitus type 2 -begin correctional aspart scale medium dose. -check A1c Umbilical hernia -this appears to be chronic/stable and not recently changing -no signs of incarceration Fatigue -echocardiogram is ordered -repeat CBC and BMP in the morning -TSH is ordered
[2019-01-18 18:12] LABS: Thyroid Stimulating Hormone 1.78 uIU/mL (0.47-4.68)
[2019-01-18] MEDS: DIGOXIN 500 MCG/2 ML AMPUL 250 MCG IV (18:30)
[2019-01-18] MEDS: ENOXAPARIN 40 MG/0.4 ML SYRINGE SUBCUT (18:37)
[2019-01-18] MEDS: INSULIN ASPART 100 UNIT/ML INSULN PEN SUBCUT (21:31)
[2019-01-18] MEDS: INFLUENZA VACCINE 0.5 ML SYRINGE IM (21:32)
--- NOTE | 2019-01-18 22:19 | PC.NURSE ---
admit nurse note pt arrived from ER with IVF at 150 ml/hr and diltiazem gtt at 10 mg/hr; HR 140s. Diltiazem gtt increased to 15 mg/hr, but B/P down to 90s from 140s. Called Dr. Carlson and received orders for IV digoxin. IV diltiazem reduced to 10 mg/hr due to hypotension. HR mostly in 90s, some 80s at rest but up to 140 with standing to void. HR dropping into 60s at 22:15; diltiazem gtt stopped.
[2019-01-19] VITALS (23 sets, daily range): BP systolic 92–131; BP diastolic 52–87; PULSE 91–150; RESP 14–23; TEMP 36.2–36.7; O2SAT 96–100
[2019-01-19] MEDS: SODIUM CHLORIDE 0.9% 1,000 ML 100 ML IV
--- NOTE | 2019-01-19 03:05 | PC.NURSE ---
Addendum entered by Machelle Wilkins R.N. 01/19/19 04:23: HR down to 58 X 2, non sustained. Diltiazem GTT turned off. Digoxin level 0.6 - Dr. Carlson notified and updated. Orders for an additional dose of digoxin received. Addendum entered by Machelle Wilkins R.N. 01/19/19 03:31: HR not responding to Diltiazem GTT at 10 mg/hour. Repeat BP after initiating med 97/65. Dr. Carlson updated on events - orders for stat digoxin level. Will notify MD of result to determine plan of care. Original Note: Upon initial assessment pt HR 95-107 at rest. Pt without complaints. 0300 Pt moved to edge of the bed to use urinal. HR up to 150 sustaining. Pt back in bed with no recovery, continues to sustain HR 140-147 with c/o palpitations and SOB. BP stable 114/75 MAP 91. Diltiazem GTT restarted at 10 mg/hour per protocol. Will monitor closely.
[2019-01-19 04:10] LABS: Digoxin 0.6 ng/mL (0.8-2.0)
[2019-01-19] MEDS: DIGOXIN 500 MCG/2 ML AMPUL 250 MCG IV ×3 (04:38→13:42)
[2019-01-19 05:20] LABS: Add Manual Diff / Slide Review NO; Basophils Absolute Auto 0 /uL (0-100); Basophils Percent Auto 0.4 % (0-2); Eosinophils Absolute Auto 0 /uL (0-450); Eosinophils Percent Auto 0.3 % (2-4); Hematocrit 42.3 % (41-53); Hemoglobin 14.8 g/dL (13.5-17.5); Lymphocytes Absolute Auto 2200 /uL (1100-4500); Lymphocytes Percent Auto 35.1 % (25-40); Mean Corpuscular HGB Conc 34.9 % (30-36); Mean Corpuscular Hemoglobin 30.9 PG (26-34); Mean Corpuscular Volume 88.5 fL (80-100); Monocytes Absolute Auto 500 /uL (0-900); Monocytes Percent Auto 8.4 % (3-14); Neutrophils Absolute Auto 3400 /uL (1500-7000); Neutrophils Percent Auto 55.8 % (50-75); Platelet Count 184 X10^3/uL (150-400); Red Blood Cell Count 4.78 X10^6/uL (4.5-5.9); Red Cell Distribution Width 13.8 % (11.6-14.8); White Blood Cell Count 6.2 X10^3/uL (4.5-11.0)
[2019-01-19 05:32] LABS: Hemoglobin A1C% w Est Avg Glu 9.7 % (4.0-6.0)
[2019-01-19 05:37] LABS: Blood Urea Nitrogen 18 mg/dL (9-20); Calcium 8.5 mg/dL (8.4-10.2); Carbon Dioxide 25 mmol/L (22-32); Chloride 102 mmol/L (98-107); Estimated Glomerular Filt Rate > 60.0 mL/min (>60); Glucose 197 mg/dL (70-100); HEMOLYSIS < 15 (0-50); Potassium 4.1 mmol/L (3.4-5.1); Sodium 135 mmol/L (137-145)
[2019-01-19 05:40] LABS: B Type Natriuretic Peptide < 100 (<100)
[2019-01-19 05:44] LABS: Troponin I < 0.012 ng/mL (0.01-0.034)
[2019-01-19] MEDS: INSULIN ASPART 100 UNIT/ML INSULN PEN SUBCUT ×2 (08:10→12:28)
[2019-01-19] MEDS: ENOXAPARIN 40 MG/0.4 ML SYRINGE SUBCUT (08:11)
[2019-01-19] MEDS: METOPROLOL TARTRATE 5 MG/5 ML INJ IV ×3 (08:40→12:07)
--- NOTE | 2019-01-19 09:20 | PC.NURSE ---
Hr 150's at rest prior to breakfast. Dr. Carlson in to see pt. Metoprolol 5mg IV given x2 with SBP decrease from 131 to 99 and HR 150's to 116. Dr. Carlson aware. pt tolerated well.
--- NOTE | 2019-01-19 11:16 | CM.DANOTE ---
DCP/Assessment: Reviewed chart. Patient is a 48yr old male admitted to [facility] with chest pain/SOB. PCP listed is Dr. Montana and Dr. Dodd. Primary payor is 1) self pay. Patient previously had [facility] up until 10-04-18. Spoke briefly with MD in AM rounds. He reports that patient will need to be transferred to higher level of care for cardiac needs. boning room worker and MD working on transfer. Met briefly with patient and parents at bedside explained CM/SW role. Patient confirms that he does not currently have health insurance. Patient aware and agreeable to transfer. P: Anticipate transfer to higher level of care for cardiac purposes. KELLY Constantino Discharge Planning/Care Management CM Discharge Assessment Start: 01/19/19 11:11 Freq: Status: Active Protocol: Document 01/19/19 11:11 KJS (Rec: 01/19/19 11:16 KJS [id number]) Discharge Planning Assessment Assigned Brush Cleaner KELLY Flores Contact Information Marimar Chin (spouse) [phone] Advance Directives? No History Provided By Patient Family Member Medical Record Prior Living Arrangements House Household Members spouse children Type of transporation used prior to Drives own vehicle admit Independent with ADL's Yes Is patient alert and oriented? Yes Discharge Plan Transfer to Higher Level of Care Review Status In Process Next Review Type Continued Stay Review
--- NOTE | 2019-01-19 13:14 | P.DS_ITS ---
History of Present Illness Chief complaint: chest pain and SOB Narrative: This is a 48-year-old male with new onset of Atrial Flutter with RVR. The onset was yesterday morning as he was getting ready to go to work. 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 He felt a sudden substernal sharp pain and then felt very tired. He stayed home from work but whenever he moved around or tried to do anything he became very fatigued. He was aware of palpitations and he was also short of breath. The pain did not radiate anywhere. There was no abdominal pain or nausea. He has no history of coronary artery disease, atrial fibrillation, atrial flutter etc. There is a family history of heart disease in his father and he is treated for diabetes mellitus. He has no history of peripheral arterial disease, CVA, hypertension or hyperlipidemia. His EKG and telemetry apparently showed atrial flutter with rapid ventricular response with initial heart rate of 149 here. He was treated with diltiazem 10 mg and then with some Lopressor IV and then another dose of diltiazem getting his heart rate down to 115. At that point he was put on a diltiazem drip. A CT angiogram was negative for pulmonary embolus. He had been experiencing some pain between the shoulder blades also. He has not been cardioverted because the symptoms began more than 24 hours ago. Discharge Providers Date of admission: 01/18/19 15:42 Discharge Date: 01/19/19 Primary care physician: Blanka Montana MD Discharge provider: Zachary Carlson MD Summary Discharge Diagnosis: Atrial flutter with rapid ventricular response Diabetes mellitus type 2 Umbilical hernia Fatigue Hospital Course: Atrial flutter with rapid ventricular response -monitored on telemetry over night and this morning with quite variable heart rate/blood pressures. Consistently when given IV push diltiazem, IV drip diltiazem, IV push metoprolol his systolic pressure would drop into the 90s and the heart rate would drop into the 100 teens. When on digoxin, loaded with 3 IV doses, his heart rate initially dropped down to the high 90s but then became resistant and remained in the 140s. -echocardiogram was done and the reading is pending -began on low dose Lovenox and then transitioned to IV heparin after discussion with 3 different cardiologists with 3 somewhat different opinions today. -Troponins have been normal. -a telemetry bed was finally found for him and accepting physicians were briefed. -the plan at this point appears to be doing a transesophageal echocardiogram to rule out clot and then proceeding with DC cardioversion. Diabetes mellitus type 2 -correctional aspart scale medium dose. -9.7 A1c Umbilical hernia -this appears to be chronic/stable and not recently changing -no signs of incarceration Fatigue -echocardiogram was done this morning with report pending. -repeat CBC and BMP were completely normal today -TSH is normal at 1.78 Exam Vital Signs (past 8 hours): - 01/19/19 06:00 01/19/19 07:02 01/19/19 08:00 Temperature 98.0 F 97.5 F L Pulse Rate 102 H 98 H 122 H Respiratory Rate 20 16 18 Blood Pressure 107/59 L 108/58 L 126/64 Pulse Oximetry 96 96 96 01/19/19 08:40 01/19/19 09:00 01/19/19 09:10 Temperature 97.2 F L Pulse Rate 150 H 144 H 143 H Respiratory Rate 16 Blood Pressure 131/87 115/75 115/75 Pulse Oximetry 96 01/19/19 09:20 01/19/19 10:51 01/19/19 11:59 Temperature 97.9 F Pulse Rate 116 H 145 H 148 H Respiratory Rate 16 16 Blood Pressure 99/74 116/60 126/75 Pulse Oximetry 97 01/19/19 13:00 Temperature 97.3 F L Pulse Rate 147 H Respiratory Rate 14 Blood Pressure 99/67 Pulse Oximetry 97 Oxygen Delivery Method Room Air Oxygen Flow Rate 1 Narrative Exam Narrative: He is alert and oriented x3. He looks somewhat less distressed than he did on presentation last night. There is a birthmark on the right forehead. Heart is regularly tachycardic without murmur. Lungs are clear to auscultation bilaterally. Extremities have no ankle edema. Abdomen has a very large umbilical hernia. Objective Labs Result Diagrams: 01/19/19 03:40 01/19/19 05:02 Labs: Laboratory Results - last 24 hr 01/18/19 01/18/19 01/18/19 13:30 13:35 13:35 WBC 8.2 RBC 5.23 Hgb 15.9 Hct 46.1 MCV 88.2 MCH 30.4 MCHC 34.5 RDW 13.7 Plt Count 240 Neut % (Auto) 62.9 Lymph % (Auto) 30.5 [place] % (Auto) 6.0 Eos % (Auto) 0.1 L Baso % (Auto) 0.5 Neut # (Auto) 5200 Lymph # (Auto) 2500 [place] # (Auto) 500 Eos # (Auto) 0 Baso # (Auto) 0 PT 10.7 INR 0.9 APTT 28 Sodium Potassium Chloride Carbon Dioxide BUN Creatinine Estimated GFR BUN/Creatinine Ratio Glucose Hemoglobin A1c Calcium Total Bilirubin AST ALT Alkaline Phosphatase Total Creatine Kinase CK-MB (CK-2) CK-MB (CK-2) Rel Index Troponin I B-Natriuretic Peptide Total Protein Albumin Globulin Albumin/Globulin Ratio Lipase TSH 1.78 Nasal Screen MRSA (PCR) Digoxin 01/18/19 01/18/19 01/19/19 13:35 18:30 03:40 WBC RBC Hgb Hct MCV MCH MCHC RDW Plt Count Neut % (Auto) Lymph % (Auto) [place] % (Auto) Eos % (Auto) Baso % (Auto) Neut # (Auto) Lymph # (Auto) [place] # (Auto) Eos # (Auto) Baso # (Auto) PT INR APTT Sodium 136 L Potassium 4.5 Chloride 99 Carbon Dioxide 26 BUN 21 H Creatinine 0.70 Estimated GFR > 60.0 BUN/Creatinine Ratio 30.0 H Glucose 252 H Hemoglobin A1c Calcium 9.7 Total Bilirubin 0.4 AST 26 ALT 32 Alkaline Phosphatase 110 Total Creatine Kinase 164 CK-MB (CK-2) 4.27 H CK-MB (CK-2) Rel Index 2.6 Troponin I < 0.012 B-Natriuretic Peptide < 100 Total Protein 7.8 Albumin 4.4 Globulin 3.4 Albumin/Globulin Ratio 1.3 Lipase 75 TSH Nasal Screen MRSA (PCR) Negative for mrsa Digoxin 01/19/19 01/19/19 01/19/19 03:40 03:40 03:40 WBC 6.2 RBC 4.78 Hgb 14.8 Hct 42.3 MCV 88.5 MCH 30.9 MCHC 34.9 RDW 13.8 Plt Count 184 Neut % (Auto) 55.8 Lymph % (Auto) 35.1 [place] % (Auto) 8.4 Eos % (Auto) 0.3 L Baso % (Auto) 0.4 Neut # (Auto) 3400 Lymph # (Auto) 2200 [place] # (Auto) 500 Eos # (Auto) 0 Baso # (Auto) 0 PT INR APTT Sodium Potassium Chloride Carbon Dioxide BUN Creatinine Estimated GFR BUN/Creatinine Ratio Glucose Hemoglobin A1c 9.7 H Calcium Total Bilirubin AST ALT Alkaline Phosphatase Total Creatine Kinase CK-MB (CK-2) CK-MB (CK-2) Rel Index Troponin I B-Natriuretic Peptide Total Protein Albumin Globulin Albumin/Globulin Ratio Lipase TSH Nasal Screen MRSA (PCR) Digoxin 0.6 L 01/19/19 01/19/19 05:02 05:02 WBC RBC Hgb Hct MCV MCH MCHC RDW Plt Count Neut % (Auto) Lymph % (Auto) [place] % (Auto) Eos % (Auto) Baso % (Auto) Neut # (Auto) Lymph # (Auto) [place] # (Auto) Eos # (Auto) Baso # (Auto) PT INR APTT Sodium 135 L Potassium 4.1 Chloride 102 Carbon Dioxide 25 BUN 18 Creatinine 0.50 L Estimated GFR > 60.0 BUN/Creatinine Ratio 36.0 H Glucose 197 H Hemoglobin A1c Calcium 8.5 Total Bilirubin AST ALT Alkaline Phosphatase Total Creatine Kinase CK-MB (CK-2) CK-MB (CK-2) Rel Index Troponin I < 0.012 B-Natriuretic Peptide Total Protein Albumin Globulin Albumin/Globulin Ratio Lipase TSH Nasal Screen MRSA (PCR) Digoxin Discharge Plan Discharge Plan Patient Disposition: [facility] Transfer to: [facility] Discharge comment: Total time today 1 hour. Discharge Med Rec/Prescriptions Prescriptions: Discontinued metformin 1,000 mg 1,000 mg PO BID RF: 0 glipizide 10 mg Tablet Extended Release 24hr 10 mg PO DAILY RF: 0 fenofibrate 160 mg 160 mg PO DAILY RF: 0 lisinopril 40 mg 40 mg PO DAILY RF: 0 phenytoin sodium extended 100 mg Capsule 400 mg PO DAILY RF: 0 Follow up/Referrals: Blanka Montana MD [Primary Care Provider] - Discharge Data Primary Care Provider: Blanka Montana Attending Provider: Zachary Carlson Admit Date/Time: 01/18/19 15:42
[2019-01-19] MEDS: HEPARIN DRIP 25,000 UNIT/500 ML IV.SOLN 20 UNIT IV (13:47)
[2019-01-19] MEDS: HEPARIN 5,000 UNIT/ML VIAL 5000 UNIT IV (14:07)
--- NOTE | 2019-01-19 15:49 | PC.NURSE ---
kirk note pt with continued HR 140s. Spoke with Dr. Carlson twice about HR. Gave dose of IV metoprolol which did not lower HR but did lower SBP to 90s. Heparin gtt started with bolus. Report called to [facility] in [facility] care unit. Pt transported via ambulance with heparin gtt and NS at 100 ml/hr.
== END 2019-01-19 15:30 | disposition short-term general hospital (02) | DRG 309 ==
LOC: ED 15:39 → ICU 16:23
PROVIDERS: Admitting Provider Family Medicine; Emergency Provider Emergency Medicine; Family Provider Internal Medicine; PCP Internal Medicine; Visit Provider Family Medicine
DX: I48.92 Unspecified atrial flutter (principal); Z68.42 Body mass index [BMI] 45.0-49.9, adult; E11.9 Type 2 diabetes mellitus without complications; E66.9 Obesity, unspecified; Z87.891 Personal history of nicotine dependence
CPT/HCPCS: 36415; 36591; 71045; 71275; 80048; 80053; 80162; 82550; 82553; 82962; 83036; 83690; 83880; 84443; 84484; 85025; 85610; 85730; 87797; 90471; 90656; 93005; 93010; 93041; 93306; 96365; 96366; 96375; 96376; 99285; J1160; J1644; J1650; Q2038; Q9967

== ENCOUNTER → 2019-05-24 06:39 | Outpatient (CLI) | payer OTHER, SELFPAY ==
[2019-01-18 19:37] VITALS: BMI 48.2
--- NOTE | 2019-05-24 | DI.ECHO.S_ITS ---
[facility]---------+ [facility] +---------+ : : [address] : : : : [id number] : : : : Phone: [phone] Echocardiogram Report + + :Name: SURAJ MANZANO Study Date: 05/24/2019 Height: 75 in : :[facility] Exam Location: [facility] Weight: 393 lb : : Gender: Male BSA: 2.9 m2 : :: 1970 Age: 49 yrs BP: 121/80 mmHg: :Reason For Study: Cardiomyopathy, Dilated : : Performed By: Brigitte Page : :Referring: JAYDEN ESTRADA : + + Interpretation Summary The left ventricle is mildly dilated. The ejection fraction is estimated to be 55-60%. Left ventricular systolic function has significantly improved compared to the previous exam. The right ventricle is moderately dilated. The right ventricular systolic function is normal. No significant valvular pathology seen. In comparison to previous study, patient is in sinus rhythm. LV function has improved. 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 In previous study, patient was in A. fib with fast ventricular rate and LV ejection fraction 30+ -5%. Procedure: A two-dimensional transthoracic echocardiogram with color flow and Doppler was performed. The study quality was technically adequate. Comparison is made with the echocardiogram of 01/19/2019. The patient was in normal sinus rhythm during the exam. Left Ventricle: There is normal left ventricular wall thickness. The left ventricle is mildly dilated. There is no thrombus. The ejection fraction is estimated to be 55-60%. Left ventricular systolic function has significantly improved compared to the previous exam. There are no focal wall motion abnormalities. Diastolic parameters suggest probable normal left ventricular diastolic function and normal filling pressures. Right Ventricle: The right ventricle is not well visualized. The right ventricle is moderately dilated. The right ventricular systolic function is normal. Atria: Both atria are severely dilated. Both atria have significantly increased in size since the prior echo exam. There is no Doppler evidence for an interatrial shunt. Mitral Valve: There is mild mitral annular calcification. There is trace mitral regurgitation. Aortic Valve: The aortic valve is trileaflet. The aortic valve opens well. There is no aortic valve stenosis. No aortic regurgitation is present. Tricuspid Valve: The tricuspid valve is normal in structure and function. There is a trace or physiologic amount of tricuspid regurgitation. Pulmonary artery pressures cannot be estimated because of the lack of a measurable TR jet velocity. Pulmonic Valve: The pulmonic valve is not well visualized. There is trace pulmonic regurgitation. Great Vessels: The aortic root is normal size. The ascending aorta is at the upper limits of normal in size. The pulmonary artery is not well visualized, but is probably normal size. The inferior vena cava was not visualized. Pericardium/ Pleura There is no pericardial effusion. There is no pleural effusion. MMode/2D Measurements & Calculations LVIDd: 6.7 cm LVOT diam: 2.7 cm LVIDs: 4.2 cm Ao root diam: 3.8 cm FS: 36.9 % asc Aorta Diam: 3.5 cm EPSS: 0.77 cm IVSd: 0.93 cm LVPWd: 0.86 cm LV patel. diameter/BSA (cm/m^2): 2.3 LV sys. diameter/BSA (cm/m^2): 1.4 LA A2 area: 36.0 cm2 RA long axis: 5.3 cm LA A4 area: 30.3 cm2 RA area: 30.7 cm2 LA length (vol): 5.8 cm RA vol: 151.6 ml LA vol: 159.6 ml RA : 51.9 ml/m2 LA vol index: 54.6 ml/m2 TAPSE: 2.5 cm Doppler Measurements & Calculations Ao V2 max: 99.1 cm/sec LVOT Max Guillermo: 67.3 cm/sec Ao V2 mean: 60.1 cm/sec LV V1 max P.8 mmHg Ao max P.9 mmHg LV V1 VTI: 14.7 cm Ao mean P.7 mmHg TOMAS(I,D): 4.3 cm2 Ao V2 VTI: 19.0 cm TOMAS(V,D): 3.8 cm2 sev ratio: 0.77 TOMAS indexed to BSA (cm^2/m^2): 1.5 MV E max guillermo: 56.7 cm/sec PA V2 max: 68.4 cm/sec MV A max guillermo: 49.9 cm/sec PA V2 mean: 52.5 cm/sec MV E/A: 1.1 PA mean P.2 mmHg Med Peak E' Guillermo: 5.9 cm/sec E/E' med: 9.6 Lat Peak E' Guillermo: 8.3 cm/sec E/E' lat: 6.9 E/e' average: 8.3 MV dec time: 0.15 sec MV P1/2t: 42.8 msec MV P1/2t max guillermo: 57.4 cm/sec SV(LVOT): 81.7 ml MVA(P1/2t): 5.1 cm2 Reading Physician:12:59 PM
== END ==
PROVIDERS: Family Provider Internal Medicine; PCP Internal Medicine; Visit Provider Internal Medicine
DX: I42.0 Dilated cardiomyopathy (principal)
CPT/HCPCS: 93306

== ENCOUNTER → 2019-05-27 08:29 | Outpatient (CLI) | payer OTHER, SELFPAY ==
[2019-01-18 19:37] VITALS: BMI 48.2
[2019-05-27 09:56] LABS: Add Manual Diff / Slide Review NO; Basophils Absolute Auto 0 /uL (0-100); Basophils Percent Auto 0.5 % (0-2); Eosinophils Absolute Auto 0 /uL (0-450); Eosinophils Percent Auto 0.2 % (2-4); Hematocrit 45.1 % (41-53); Hemoglobin 15.5 g/dL (13.5-17.5); Lymphocytes Absolute Auto 2200 /uL (1100-4500); Lymphocytes Percent Auto 32.6 % (25-40); Mean Corpuscular HGB Conc 34.4 % (30-36); Mean Corpuscular Hemoglobin 30.5 PG (26-34); Mean Corpuscular Volume 88.6 fL (80-100); Monocytes Absolute Auto 500 /uL (0-900); Neutrophils Absolute Auto 4000 /uL (1500-7000); Neutrophils Percent Auto 59.7 % (50-75); Platelet Count 235 X10^3/uL (150-400); Red Blood Cell Count 5.09 X10^6/uL (4.5-5.9); Red Cell Distribution Width 14.1 % (11.6-14.8); White Blood Cell Count 6.6 X10^3/uL (4.5-11.0)
[2019-05-27 10:10] LABS: INR 1.2 (0.9-1.3)
[2019-05-27 11:01] LABS: Hemoglobin A1C% w Est Avg Glu 9.4 % (4.0-6.0)
[2019-05-27 11:23] LABS: TSH w/ Reflex to FT4 1.74 uIU/mL (0.47-4.68)
[2019-05-27 11:42] LABS: Alanine Aminotransferase 30 IU/L (21-72); Albumin 4.4 g/dL (3.5-5.0); Albumin Globulin Ratio 1.2 (1.0-2.8); Alkaline Phosphatase 128 U/L (38-126); Aspartate Aminotransferase 32 IU/L (17-59); Bilirubin Total 0.4 mg/dL (0.2-1.3); Blood Urea Nitrogen 17 mg/dL (9-20); Calcium 9.4 mg/dL (8.4-10.2); Carbon Dioxide 27 mmol/L (22-32); Chloride 99 mmol/L (98-107); Cholesterol 232 mg/dL (140-199); Estimated Glomerular Filt Rate > 60.0 mL/min (>60); Globulin 3.7 g/dL (1.7-4.1); Glucose 283 mg/dL (70-100); HDL Cholesterol 47 mg/dL (40-60); HEMOLYSIS < 15 (0-50); LDL Cholesterol Calculated 118 mg/dL (<100); Potassium 4.6 mmol/L (3.4-5.1); Sodium 137 mmol/L (137-145); Total Protein 8.1 g/dL (6.3-8.2); Triglycerides 335 mg/dL (35-150)
== END ==
PROVIDERS: PCP Internal Medicine; Visit Provider Internal Medicine
DX: I48.91 Unspecified atrial fibrillation (principal); E11.8 Type 2 diabetes mellitus with unspecified complications; E78.5 Hyperlipidemia, unspecified; I10 Essential (primary) hypertension; E88.81 Metabolic syndrome and other insulin resistance
CPT/HCPCS: 36415; 80053; 80061; 83036; 84443; 85025; 85610

== ENCOUNTER → 2019-09-23 10:39 | Outpatient (CLI) | payer OTHER, SELFPAY ==
[2019-01-18 19:37] VITALS: BMI 48.2
[2019-09-23 11:50] LABS: Alanine Aminotransferase 39 IU/L (<50); Albumin 4.4 g/dL (3.5-5.0); Albumin Globulin Ratio 1.2 (1.0-2.8); Alkaline Phosphatase 125 U/L (38-126); Aspartate Aminotransferase 37 IU/L (17-59); Bilirubin Total 0.4 mg/dL (0.2-1.3); Blood Urea Nitrogen 14 mg/dL (9-20); Calcium 9.6 mg/dL (8.4-10.2); Carbon Dioxide 27 mmol/L (22-32); Chloride 98 mmol/L (98-107); Cholesterol 204 mg/dL (140-199); Estimated Glomerular Filt Rate > 60.0 mL/min (>60); Globulin 3.6 g/dL (1.7-4.1); Glucose 272 mg/dL (70-100); HDL Cholesterol 47 mg/dL (40-60); HEMOLYSIS < 15 (0-50); LDL Cholesterol Calculated 118 mg/dL (<100); Potassium 4.6 mmol/L (3.4-5.1); Sodium 136 mmol/L (137-145); Triglycerides 196 mg/dL (35-150)
[2019-09-23 12:52] LABS: Hemoglobin A1C% w Est Avg Glu 9.9 % (4.0-6.0)
== END ==
LOC: LAB 10:43
PROVIDERS: PCP Internal Medicine; Visit Provider Internal Medicine
DX: E11.8 Type 2 diabetes mellitus with unspecified complications (principal); E78.5 Hyperlipidemia, unspecified
CPT/HCPCS: 36415; 80053; 80061; 83036

== ENCOUNTER → 2020-01-06 09:25 | Outpatient (CLI) | payer OTHER, SELFPAY ==
[2019-01-18 19:37] VITALS: BMI 48.2
[2020-01-06 10:19] LABS: Hemoglobin A1C% w Est Avg Glu 9.2 % (4.0-6.0)
[2020-01-06 10:34] LABS: Alanine Aminotransferase 36 IU/L (<50); Albumin 4.3 g/dL (3.5-5.0); Albumin Globulin Ratio 1.1 (1.0-2.8); Alkaline Phosphatase 113 U/L (38-126); Aspartate Aminotransferase 36 IU/L (17-59); BUN Creatinine Ratio 25.9 (6-22); Bilirubin Total 0.4 mg/dL (0.2-1.3); Blood Urea Nitrogen 15 mg/dL (9-20); Calcium 9.6 mg/dL (8.4-10.2); Carbon Dioxide 29 mmol/L (22-32); Chloride 98 mmol/L (98-107); Cholesterol 208 mg/dL (140-199); Estimated Glomerular Filt Rate > 60.0 mL/min (>60); Globulin 3.8 g/dL (1.7-4.1); Glucose 230 mg/dL (70-100); HDL Cholesterol 50 mg/dL (40-60); HEMOLYSIS < 15 (0-50); LDL Cholesterol Calculated 114 mg/dL (<100); Potassium 4.6 mmol/L (3.4-5.1); Sodium 135 mmol/L (137-145); Total Protein 8.1 g/dL (6.3-8.2); Triglycerides 218 mg/dL (35-150)
== END ==
LOC: LAB 09:28
PROVIDERS: PCP Internal Medicine; Referring Provider Internal Medicine; Visit Provider Internal Medicine
DX: E11.8 Type 2 diabetes mellitus with unspecified complications (principal); E78.5 Hyperlipidemia, unspecified; I10 Essential (primary) hypertension
CPT/HCPCS: 36415; 80053; 80061; 83036

== ENCOUNTER → 2020-06-16 16:58 | Outpatient (CLI) | payer OTHER, SELFPAY ==
[2019-01-18 19:37] VITALS: BMI 48.2
[2020-06-16 18:22] LABS: Hemoglobin A1C% w Est Avg Glu 8.5 % (4.0-6.0)
== END ==
PROVIDERS: PCP Student in an Organized Health Care Education/Training Program; Referring Provider Student in an Organized Health Care Education/Training Program; Visit Provider Student in an Organized Health Care Education/Training Program
DX: E11.9 Type 2 diabetes mellitus without complications (principal)
CPT/HCPCS: 36415; 83036

== ENCOUNTER 2020-07-21 16:26 | Emergency (ER) | payer OTHER, SELFPAY ==
[2019-01-18 19:37] VITALS: BMI 48.2
[2020-07-21] VITALS (42 sets, daily range): BP systolic 109–149; BP diastolic 57–92; PULSE 81–140; RESP 7–29; TEMP 35.8; O2SAT 94–98; BMI 45.6
--- NOTE | 2020-07-21 16:58 | DI.RAD.S_ITS ---
PROCEDURE: XR CHEST 1V INDICATIONS: chest pain TECHNIQUE: One view of the chest was acquired. COMPARISON: [facility], CR, CHEST 1 VIEW, 07/16/2014, 12:16. [facility], CT, CT ANGIO CHEST PE PROTOCOL, 01/18/2019, 14:44. [facility], CR, XR CHEST 1V, 01/18/2019, 13:48. FINDINGS: Study limited by body habitus/underpenetration. Surgical changes and devices: None. Lungs and pleura: Lungs are clear. No pleural effusions or pneumothorax. Mediastinum: Mediastinal contours appear normal. Heart size is normal. Bones and chest wall: No suspicious bony lesions. Overlying soft tissues appear unremarkable. IMPRESSION: Limited portable chest examination, without a significant cardiopulmonary abnormality identified. Dictated by: Derrick Briones M.D. on 07/21/2020 at 16:42 Approved by: Derrick Briones M.D. on 07/21/2020 at 16:44
[2020-07-21 17:28] LABS: Add Manual Diff / Slide Review NO; Basophils Absolute Auto 100 /uL (0-100); Basophils Percent Auto 0.7 % (0-2); Eosinophils Absolute Auto 0 /uL (0-450); Eosinophils Percent Auto 0.2 % (2-4); Hematocrit 44.1 % (41-53); Lymphocytes Absolute Auto 2300 /uL (1100-4500); Lymphocytes Percent Auto 31.9 % (25-40); Mean Corpuscular Hemoglobin 30.1 PG (26-34); Mean Corpuscular Volume 88.4 fL (80-100); Monocytes Absolute Auto 600 /uL (0-900); Monocytes Percent Auto 8.1 % (3-14); Neutrophils Absolute Auto 4200 /uL (1500-7000); Neutrophils Percent Auto 59.1 % (50-75); Platelet Count 236 X10^3/uL (150-400); Red Blood Cell Count 4.98 X10^6/uL (4.5-5.9); Red Cell Distribution Width 14.1 % (11.6-14.8); White Blood Cell Count 7.1 X10^3/uL (4.5-11.0)
[2020-07-21 17:33] LABS: INR 1.9 (0.9-1.3); Prothrombin Time 22.2 SECONDS (10.1-12.7)
[2020-07-21 17:36] LABS: PTT Partial Thromboplastin Tim 43 SECONDS (26.4-36.2)
[2020-07-21 17:39] LABS: Alanine Aminotransferase 35 IU/L (<50); Albumin 3.9 g/dL (3.5-5.0); Albumin Globulin Ratio 1.1 (1.0-2.8); Alkaline Phosphatase 98 U/L (38-126); Aspartate Aminotransferase 37 IU/L (17-59); BUN Creatinine Ratio 24.5 (6-22); Bilirubin Total 0.4 mg/dL (0.2-1.3); Blood Urea Nitrogen 13 mg/dL (9-20); Calcium 9.1 mg/dL (8.4-10.2); Carbon Dioxide 27 mmol/L (22-32); Chloride 102 mmol/L (98-107); Creatine Kinase 211 U/L (55-170); Estimated Glomerular Filt Rate > 60.0 mL/min (>60); Globulin 3.5 g/dL (1.7-4.1); Glucose 217 mg/dL (70-100); HEMOLYSIS < 15 (0-50); Lipase 84 U/L (23-300); Potassium 3.8 mmol/L (3.4-5.1); Sodium 134 mmol/L (137-145); Total Protein 7.4 g/dL (6.3-8.2)
[2020-07-21 17:49] LABS: Troponin I < 0.012 ng/mL (0.01-0.034)
--- NOTE | 2020-07-21 17:49 | PC.NURSE ---
Reports rapid heart rate started Monday afternoon. Has history of same/cardioversion. 09/13 chest pain with ambulation/exertion, also dizzy with exertion.
[2020-07-21 17:54] LABS: CKMB % Relative Index 1.4 % (1.5-5.0); Creatine Kinase MB 2.96 ng/mL (<2.37)
--- NOTE | 2020-07-21 18:07 | ED.ARRPALP ---
HPI - Arrhythmia/Palpitations General Chief Complaint: Arrhythmia/Palpitations Stated Complaint: RAPID HEART Time Seen by Provider: 07/21/20 18:05 Source: patient Mode of arrival: Ambulatory Limitations: no limitations History of Present Illness HPI narrative: 50-year-old male nonsmoker with history of atrial fib/flutter and type 2 diabetes has been anticoagulated for well over a year and denies any recent change or missed doses in his medications. He presents with a chief complaint of 2 days of increased fatigue with minimal exertion and a rapid pulse. He denies any dizziness or lightheadedness. He denies any chest pain. He has had no runny nose, sore throat or cough and denies any fever or chills. MD complaint: rapid heart beat Onset (ago): day(s) Duration: constant Severity: moderate Arrhythmia history: atrial fibrillation and on anti-coagulants Associated symptoms: shortness of breath Treatments prior to arrival: vagal maneuvers and beta-ravinder Related Data Home Medications Medication Instructions Recorded Confirmed glipizide 10 mg tablet, extended 10 mg PO DAILY 10/31/19 07/21/20 release 24 hr metformin 1,000 mg tablet 1,000 mg PO BID 10/31/19 07/21/20 metoprolol succinate 200 mg 200 mg PO BID 10/31/19 07/21/20 tablet,extended release 24 hr warfarin 10 mg tablet 7.5 mg PO DAILY 10/31/19 07/21/20 phenytoin sodium extended 100 mg 400 mg PO DAILY cap 06/16/20 07/21/20 capsule Previous Rx's Medication Instructions Recorded fenofibrate 160 mg tablet 160 mg PO DAILY #90 tab 06/16/20 lisinopril 40 mg tablet 40 mg PO DAILY #90 tab 06/16/20 pioglitazone 15 mg tablet 15 mg PO DAILY #60 tab 06/16/20 pravastatin 20 mg tablet 20 mg PO BEDTIME #90 tab 07/21/20 Allergies Allergy/AdvReac Type Severity Reaction Status Date / Time codeine Allergy Unknown HALLUCINATE Verified 07/21/20 16:55 Review of Systems Constitutional Constitutional: Denies chills, Denies fatigue, Denies fever(s), Denies frequent falls, Denies lethargy and Denies weakness Eyes Eyes: Denies change in vision, Denies eye discharge, Denies irritation and Denies loss of vision ENT Ears, Nose, Mouth, and Throat: Denies change in voice, Denies dizziness, Denies neck pain, Denies sore throat and Denies throat swelling Cardiovascular Cardiovascular: Denies chest pain, Reports rapid heart rate, Denies irregular heart rhythm, Denies lightheadedness, Denies palpitations, Reports dyspnea, Denies dyspnea on exertion and Denies orthopnea Respiratory Respiratory: Denies cough, Reports dyspnea, Denies dyspnea on exertion and Denies wheezing Gastrointestinal Gastrointestinal: Denies abdominal pain, Denies change in bowel habits, Denies diarrhea, Denies nausea and Denies vomiting Musculoskeletal Musculoskeletal: Denies neck pain and Denies numbness Integumentary/Breasts Skin/Breast: Denies pruritus, Denies erythema, Denies rash and Denies wounds Neurologic Neurologic: Denies behavioral changes, Denies confusion, Denies dizziness, Denies frequent falls, Denies loss of vision, Denies numbness and Denies weakness Psychiatric Psychiatric: Denies anxiety, Denies behavioral changes, Denies confusion, Denies depression, Denies homicidal ideation and Denies suicidal ideation Endocrine Endocrine: Denies fatigue, Denies flushing and Denies palpitations Hematologic/Lymphatic Hematologic/Lymphatic: Denies easy bruising Allergic/Immunologic Allergic/Immunologic: Denies urticaria, Denies throat swelling and Denies wheezing Patient History Medical History Diabetes Recurrent spontaneous pneumothorax Surgical History H/O craniotomy History of appendectomy History of cerebral aneurysm repair History of lung surgery Family History Mother Hypertension Father Hypertension Congestive heart failure Restless leg Heart disease Family/Other Hypertension Heart disease Anxiety Dementia Alcohol abuse Substance abuse Social History marital status: household members: spouse and children Smoking Status: Never smoker alcohol intake: never substance use type: does not use Smoking Status: Never smoker alcohol intake frequency: holidays/special occasions only Substance Use Type: does not use Exam Initial Vital Signs Initial Vital Signs: Vital Signs Temperature 96.5 F L 07/21/20 16:46 Pulse Rate 138 H 07/21/20 16:46 Respiratory Rate 20 07/21/20 16:46 Blood Pressure 125/92 H 07/21/20 16:46 Pulse Oximetry 96 07/21/20 16:46 Procedures Cardioversion Consent Signed: Yes Indication: Rapid atrial flutter Stability: Stable Number of attempts (shocks): 2 Joules used: 50 and 150 Cardiac rhythm post-cardioversion: Normal sinus Procedural Sedation Consent signed: Yes Time out performed: Yes Indication: cardioversion ASA Class: II Mallampati Airway Classification: Class III Preparation: cardiac cath technologist applied, pulse oximeter, capnometry used, supplemental O2 applied, suction/airway equipment at bedside and IV secured IV Propofol dose (mg): 180 Intraservice time/total sedation time (min): 10 ED Sedation Level: Moderate (Concious) Patient Tolerated Procedure: Well Complications: none Course Orders Ordered: ED Orders 07/21/20 18:23 COVID19 Stat Discontinued Medications Propofol (Propofol 200 Mg/20 Ml Vial) 175 mg 1 mg/kg (175 mg) IV NOW ONE Stop: 07/21/20 18:16 Last Admin: 07/21/20 21:12 Dose: 175 mg Documented by: BTONER Vital Signs Vital signs: Vital Signs - 8 hr 07/21/20 19:30 07/21/20 19:47 07/21/20 20:00 Pulse Rate 137 H 137 H 137 H Respiratory Rate 17 20 23 Blood Pressure 118/78 121/75 Blood Pressure [Right Arm] Pulse Oximetry 96 97 97 07/21/20 20:01 07/21/20 20:18 07/21/20 20:22 Pulse Rate 136 H 137 H 135 H Respiratory Rate 29 H 18 18 Blood Pressure 113/84 117/87 Blood Pressure [Right Arm] 113/84 117/87 Pulse Oximetry 97 97 96 07/21/20 20:24 07/21/20 20:27 07/21/20 20:28 Pulse Rate 134 H 94 H 90 Respiratory Rate 19 10 L 18 Blood Pressure 111/57 L 147/66 H Blood Pressure [Right Arm] 117/87 Pulse Oximetry 95 96 07/21/20 20:30 07/21/20 20:33 07/21/20 20:35 Pulse Rate 97 H 93 H 91 H Respiratory Rate 11 L 15 16 Blood Pressure 149/70 H 143/76 H 138/74 Blood Pressure [Right Arm] Pulse Oximetry 96 97 97 07/21/20 20:36 07/21/20 20:39 07/21/20 20:42 Pulse Rate 91 H 87 85 Respiratory Rate 17 24 26 H Blood Pressure 138/74 135/72 135/71 Blood Pressure [Right Arm] Pulse Oximetry 98 97 96 07/21/20 20:45 07/21/20 20:48 07/21/20 20:51 Pulse Rate 87 85 84 Respiratory Rate 22 23 21 Blood Pressure 123/71 124/72 116/65 Blood Pressure [Right Arm] Pulse Oximetry 95 95 94 07/21/20 20:54 07/21/20 20:57 07/21/20 21:00 Pulse Rate 91 H 84 84 Respiratory Rate 21 21 24 Blood Pressure 120/68 116/66 117/69 Blood Pressure [Right Arm] Pulse Oximetry 97 96 96 07/21/20 21:03 07/21/20 21:06 07/21/20 21:07 Pulse Rate 86 84 90 Respiratory Rate 21 21 19 Blood Pressure 118/68 117/66 Blood Pressure [Right Arm] 111/57 L Pulse Oximetry 97 96 98 07/21/20 21:09 07/21/20 21:12 07/21/20 21:15 Pulse Rate 85 84 86 Respiratory Rate 21 21 19 Blood Pressure 115/64 115/65 113/63 Blood Pressure [Right Arm] Pulse Oximetry 96 96 96 07/21/20 21:18 07/21/20 21:21 07/21/20 21:24 Pulse Rate 87 83 86 Respiratory Rate 21 22 22 Blood Pressure 109/65 113/63 114/67 Blood Pressure [Right Arm] Pulse Oximetry 96 96 96 07/21/20 21:27 07/21/20 21:30 07/21/20 21:33 Pulse Rate 82 81 83 Respiratory Rate 22 21 25 H Blood Pressure 111/65 114/65 116/67 Blood Pressure [Right Arm] Pulse Oximetry 96 96 97 MDM - Arrhythmia/Palpitations Lab Data Result diagrams: 07/21/20 17:10 07/21/20 17:10 Labs: Lab Results 07/21/20 07/21/20 07/21/20 Range/Units 17:10 17:10 17:10 WBC 7.1 (4.5-11.0) X10^3/uL RBC 4.98 (4.5-5.9) X10^6/uL Hgb 15.0 (13.5-17.5) g/dL Hct 44.1 (41-53) % MCV 88.4 (80-100) fL MCH 30.1 (26-34) PG MCHC 34.0 (30-36) % RDW 14.1 (11.6-14.8) % Plt Count 236 (150-400) X10^3/uL Neut % (Auto) 59.1 (50-75) % Lymph % (Auto) 31.9 (25-40) % [place] % (Auto) 8.1 (3-14) % Eos % (Auto) 0.2 L (2-4) % Baso % (Auto) 0.7 (0-2) % Neut # (Auto) 4200 (6871-9338) /uL Lymph # (Auto) 2300 (0787-0967) /uL [place] # (Auto) 600 (0-900) /uL Eos # (Auto) 0 (0-450) /uL Baso # (Auto) 100 (0-100) /uL PT 22.2 H (10.1-12.7) SECONDS INR 1.9 H (0.9-1.3) APTT 43 H D (26.4-36.2) SECONDS Sodium 134 L (137-145) mmol/L Potassium 3.8 (3.4-5.1) mmol/L Chloride 102 (98-107) mmol/L Carbon Dioxide 27 (22-32) mmol/L BUN 13 (9-20) mg/dL Creatinine 0.53 L (0.66-1.25) mg/dL Estimated GFR > 60.0 (>60) mL/min BUN/Creatinine Ratio 24.5 H (6-22) Glucose 217 H (70-100) mg/dL Calcium 9.1 (8.4-10.2) mg/dL Total Bilirubin 0.4 (0.2-1.3) mg/dL AST 37 (17-59) IU/L ALT 35 (<50) IU/L Alkaline Phosphatase 98 (38-126) U/L Total Creatine Kinase 211 H (55-170) U/L CK-MB (CK-2) 2.96 H (<2.37) ng/mL CK-MB (CK-2) Rel Index 1.4 L (1.5-5.0) % Troponin I < 0.012 (0.01-0.034) ng/mL Total Protein 7.4 (6.3-8.2) g/dL Albumin 3.9 (3.5-5.0) g/dL Globulin 3.5 (1.7-4.1) g/dL Albumin/Globulin Ratio 1.1 (1.0-2.8) Lipase 84 (23-300) U/L COVID-19 PCR (Negative) 07/21/20 Range/Units 18:23 WBC (4.5-11.0) X10^3/uL RBC (4.5-5.9) X10^6/uL Hgb (13.5-17.5) g/dL Hct (41-53) % MCV (80-100) fL MCH (26-34) PG MCHC (30-36) % RDW (11.6-14.8) % Plt Count (150-400) X10^3/uL Neut % (Auto) (50-75) % Lymph % (Auto) (25-40) % [place] % (Auto) (3-14) % Eos % (Auto) (2-4) % Baso % (Auto) (0-2) % Neut # (Auto) (8378-6744) /uL Lymph # (Auto) (1973-8134) /uL [place] # (Auto) (0-900) /uL Eos # (Auto) (0-450) /uL Baso # (Auto) (0-100) /uL PT (10.1-12.7) SECONDS INR (0.9-1.3) APTT (26.4-36.2) SECONDS Sodium (137-145) mmol/L Potassium (3.4-5.1) mmol/L Chloride (98-107) mmol/L Carbon Dioxide (22-32) mmol/L BUN (9-20) mg/dL Creatinine (0.66-1.25) mg/dL Estimated GFR (>60) mL/min BUN/Creatinine Ratio (6-22) Glucose (70-100) mg/dL Calcium (8.4-10.2) mg/dL Total Bilirubin (0.2-1.3) mg/dL AST (17-59) IU/L ALT (<50) IU/L Alkaline Phosphatase (38-126) U/L Total Creatine Kinase (55-170) U/L CK-MB (CK-2) (<2.37) ng/mL CK-MB (CK-2) Rel Index (1.5-5.0) % Troponin I (0.01-0.034) ng/mL Total Protein (6.3-8.2) g/dL Albumin (3.5-5.0) g/dL Globulin (1.7-4.1) g/dL Albumin/Globulin Ratio (1.0-2.8) Lipase (23-300) U/L COVID-19 PCR Negative (Negative) Discharge Plan Departure Patient Disposition: Home Clinical Impression: Atrial flutter with rapid ventricular response Instructions: DI for Atrial Flutter Activity Restrictions/Additional Instructions: *You have been diagnosed with [rapid atrial flutter. He responded well to the procedural sedation and electrocardioversion.] *What to do: * continue to take medications as directed *Follow up with your top ironer in 2-3 days, call for an appointment. Let them know you were seen in the Emergency Department and that we ask that you be seen in follow up *Return to ER if you should have any new, worsening or concerning symptoms Prescriptions: No Action pravastatin 20 mg tablet 20 mg PO BEDTIME Qty: 90 RF: 3 lisinopril 40 mg tablet 40 mg PO DAILY Qty: 90 RF: 3 fenofibrate 160 mg tablet 160 mg PO DAILY Qty: 90 RF: 3 pioglitazone 15 mg tablet 15 mg PO DAILY Qty: 60 RF: 0 metformin 1,000 mg tablet 1,000 mg PO BID RF: 0 glipizide 10 mg tablet extended release 24hr 10 mg PO DAILY RF: 0 metoprolol succinate 200 mg tablet extended release 24 hr 200 mg PO BID RF: 0 warfarin 10 mg tablet 7.5 mg PO DAILY RF: 0 phenytoin sodium extended [Dilantin Extended] 100 mg capsule 400 mg PO DAILY RF: 0 Referrals: Varun Graham MD [Primary Care Provider] -
[2020-07-21 18:57] LABS: COVID19 -Nasal RAPID Negative (Negative)
[2020-07-21] MEDS: propofoL 200 MG/20 ML VIAL 175 MG IV (21:12)
== END 2020-07-21 21:40 | disposition home or self-care (01) ==
PROVIDERS: Emergency Medicine; Emergency Provider Emergency Medicine; PCP Student in an Organized Health Care Education/Training Program
DX: I48.92 Unspecified atrial flutter (principal); Z79.01 Long term (current) use of anticoagulants; E11.9 Type 2 diabetes mellitus without complications; R53.83 Other fatigue; R06.02 Shortness of breath
CPT/HCPCS: 36415; 71045; 80053; 82550; 82553; 83690; 84484; 85025; 85610; 85730; 87635; 92960; 93005; 94770; 99152; 99284; 99285; J2704

== ENCOUNTER → 2020-10-26 08:06 | Outpatient (CLI) | payer OTHER, SELFPAY ==
[2019-01-18 19:37] VITALS: BMI 48.2
[2020-10-26 08:25] LABS: Add Manual Diff / Slide Review NO; Basophils Absolute Auto 0 /uL (0-100); Basophils Percent Auto 0.5 % (0-2); Eosinophils Absolute Auto 0 /uL (0-450); Eosinophils Percent Auto 0.1 % (2-4); Hematocrit 43.3 % (41-53); Hemoglobin 14.9 g/dL (13.5-17.5); Lymphocytes Absolute Auto 2600 /uL (1100-4500); Lymphocytes Percent Auto 38.9 % (25-40); Mean Corpuscular HGB Conc 34.3 % (30-36); Mean Corpuscular Hemoglobin 30.3 PG (26-34); Mean Corpuscular Volume 88.4 fL (80-100); Monocytes Absolute Auto 500 /uL (0-900); Monocytes Percent Auto 8.1 % (3-14); Neutrophils Absolute Auto 3500 /uL (1500-7000); Neutrophils Percent Auto 52.4 % (50-75); Platelet Count 208 X10^3/uL (150-400); Red Cell Distribution Width 14.3 % (11.6-14.8); White Blood Cell Count 6.7 X10^3/uL (4.5-11.0)
[2020-10-26 08:38] LABS: Hemoglobin A1C% w Est Avg Glu 8.3 % (4.0-6.0)
[2020-10-26 08:51] LABS: Alanine Aminotransferase 38 IU/L (<50); Albumin 4.2 g/dL (3.5-5.0); Albumin Globulin Ratio 1.4 (1.0-2.8); Alkaline Phosphatase 84 U/L (38-126); Aspartate Aminotransferase 47 IU/L (17-59); Bilirubin Total 0.3 mg/dL (0.2-1.3); Blood Urea Nitrogen 12 mg/dL (9-20); Calcium 9.2 mg/dL (8.4-10.2); Carbon Dioxide 28 mmol/L (22-32); Chloride 101 mmol/L (98-107); Cholesterol 185 mg/dL (140-199); Estimated Glomerular Filt Rate > 60.0 mL/min (>60); Glucose 228 mg/dL (70-100); HDL Cholesterol 57 mg/dL (40-60); HEMOLYSIS < 15 (0-50); LDL Cholesterol Calculated 85 mg/dL (<100); Potassium 4.3 mmol/L (3.4-5.1); Sodium 135 mmol/L (137-145); Total Protein 7.2 g/dL (6.3-8.2); Triglycerides 215 mg/dL (35-150)
== END ==
PROVIDERS: PCP Physician Assistant; Referring Provider Physician Assistant; Visit Provider Physician Assistant
DX: I10 Essential (primary) hypertension (principal); E11.8 Type 2 diabetes mellitus with unspecified complications; E78.5 Hyperlipidemia, unspecified
CPT/HCPCS: 36415; 80053; 80061; 83036; 85025

== ENCOUNTER → 2021-10-12 08:39 | Outpatient (CLI) | payer OTHER, SELFPAY ==
[2019-01-18 19:37] VITALS: BMI 48.2
[2021-10-12 09:33] LABS: Add Manual Diff / Slide Review NO; Basophils Absolute Auto 0 /uL (0-100); Basophils Percent Auto 0.6 % (0-2); Eosinophils Absolute Auto 0 /uL (0-450); Eosinophils Percent Auto 0.1 % (2-4); Hematocrit 42.8 % (41-53); Hemoglobin 14.7 g/dL (13.5-17.5); Lymphocytes Absolute Auto 2000 /uL (1100-4500); Lymphocytes Percent Auto 32.3 % (25-40); Mean Corpuscular HGB Conc 34.4 % (30-36); Mean Corpuscular Hemoglobin 30.2 PG (26-34); Mean Corpuscular Volume 87.8 fL (80-100); Monocytes Absolute Auto 500 /uL (0-900); Monocytes Percent Auto 8.7 % (3-14); Neutrophils Absolute Auto 3600 /uL (1500-7000); Neutrophils Percent Auto 58.3 % (50-75); Platelet Count 198 X10^3/uL (150-400); Red Blood Cell Count 4.88 X10^6/uL (4.5-5.9); Red Cell Distribution Width 13.8 % (11.6-14.8); White Blood Cell Count 6.2 X10^3/uL (4.5-11.0)
[2021-10-12 09:40] LABS: INR 1.6 (0.9-1.3); Prothrombin Time 18.4 SECONDS (10.1-12.7)
[2021-10-12 10:15] LABS: Alanine Aminotransferase 34 IU/L (<50); Albumin 4.1 g/dL (3.5-5.0); Albumin Globulin Ratio 1.4 (1.0-2.8); Alkaline Phosphatase 97 U/L (38-126); Aspartate Aminotransferase 44 IU/L (17-59); BUN Creatinine Ratio 25.5 (6-22); Bilirubin Total 0.5 mg/dL (0.2-1.3); Blood Urea Nitrogen 14 mg/dL (9-20); Calcium 9.5 mg/dL (8.4-10.2); Carbon Dioxide 30 mmol/L (22-32); Chloride 99 mmol/L (98-107); Cholesterol 215 mg/dL (140-199); Estimated Glomerular Filt Rate > 60.0 mL/min (>60); Glucose 265 mg/dL (70-100); HDL Cholesterol 48 mg/dL (40-60); HEMOLYSIS < 15 (0-50); LDL Cholesterol Calculated 110 mg/dL (<100); Potassium 4.4 mmol/L (3.4-5.1); Sodium 136 mmol/L (137-145); Total Protein 7.1 g/dL (6.3-8.2); Triglycerides 285 mg/dL (35-150)
[2021-10-12 10:24] LABS: Phenytoin / Dilantin < 3.0 ug/mL (10-20)
== END ==
PROVIDERS: PCP Physician Assistant; Referring Provider Physician Assistant; Visit Provider Physician Assistant
DX: I10 Essential (primary) hypertension (principal); E11.8 Type 2 diabetes mellitus with unspecified complications; G40.909 Epilepsy, unspecified, not intractable, without status epilepticus; E78.5 Hyperlipidemia, unspecified; I48.91 Unspecified atrial fibrillation
CPT/HCPCS: 36415; 80053; 80061; 80185; 83036; 85025; 85610

== ENCOUNTER → 2022-02-12 08:41 | Outpatient (CLI) | payer OTHER, SELFPAY ==
[2019-01-18 19:37] VITALS: BMI 48.2
[2022-02-12 09:22] LABS: Add Manual Diff / Slide Review NO; Basophils Absolute Auto 0 /uL (0-100); Basophils Percent Auto 0.8 % (0-2); Eosinophils Absolute Auto 0 /uL (0-450); Eosinophils Percent Auto 0.2 % (2-4); Hematocrit 41.9 % (41-53); Hemoglobin 14.6 g/dL (13.5-17.5); Lymphocytes Absolute Auto 2000 /uL (1100-4500); Lymphocytes Percent Auto 37.5 % (25-40); Mean Corpuscular HGB Conc 34.9 % (30-36); Mean Corpuscular Hemoglobin 30.2 PG (26-34); Mean Corpuscular Volume 86.7 fL (80-100); Monocytes Absolute Auto 400 /uL (0-900); Monocytes Percent Auto 7.5 % (3-14); Neutrophils Absolute Auto 2900 /uL (1500-7000); Platelet Count 201 X10^3/uL (150-400); Red Blood Cell Count 4.84 X10^6/uL (4.5-5.9); Red Cell Distribution Width 14.3 % (11.6-14.8); White Blood Cell Count 5.4 X10^3/uL (4.5-11.0)
[2022-02-12 09:29] LABS: Hemoglobin A1C% w Est Avg Glu 10.6 % (4.0-6.0)
[2022-02-12 09:38] LABS: INR 1.5 (0.9-1.3); Prothrombin Time 16.7 SECONDS (10.1-12.7)
[2022-02-12 09:47] LABS: Alanine Aminotransferase 31 IU/L (<50); Albumin 4.2 g/dL (3.5-5.0); Albumin Globulin Ratio 1.2 (1.0-2.8); Alkaline Phosphatase 118 U/L (38-126); Aspartate Aminotransferase 32 IU/L (17-59); BUN Creatinine Ratio 23.5 (6-22); Bilirubin Total 0.5 mg/dL (0.2-1.3); Blood Urea Nitrogen 12 mg/dL (9-20); Calcium 8.8 mg/dL (8.4-10.2); Carbon Dioxide 28 mmol/L (22-32); Chloride 101 mmol/L (98-107); Cholesterol 236 mg/dL (140-199); Estimated Glomerular Filt Rate > 60 mL/min (>60); Globulin 3.4 g/dL (1.7-4.1); Glucose 257 mg/dL (70-100); HDL Cholesterol 54 mg/dL (40-60); HEMOLYSIS < 15 (0-50); LDL Cholesterol Calculated 144 mg/dL (<100); Potassium 4.3 mmol/L (3.4-5.1); Sodium 136 mmol/L (137-145); Total Protein 7.6 g/dL (6.3-8.2); Triglycerides 192 mg/dL (35-150)
== END ==
PROVIDERS: PCP Physician Assistant; Referring Provider Physician Assistant; Visit Provider Physician Assistant
DX: I48.91 Unspecified atrial fibrillation (principal); E11.8 Type 2 diabetes mellitus with unspecified complications; E78.5 Hyperlipidemia, unspecified
CPT/HCPCS: 36415; 80053; 80061; 83036; 85025; 85610

== ENCOUNTER → 2022-07-05 11:08 | Outpatient (CLI) | payer OTHER, SELFPAY ==
[2019-01-18 19:37] VITALS: BMI 48.2
--- NOTE | 2022-07-05 | DI.RAD.S_ITS ---
PROCEDURE: XR FOOT LT MIN 3V INDICATIONS: Type 2 diabetes mellitus with foot ulcer TECHNIQUE: 3 views of the foot were acquired. COMPARISON: , CR, FOOT 2V RIGHT, 11/30/2017, 11:01. FINDINGS: Bones: No fractures or dislocations. Osteoarthritic changes are noted throughout left foot. Prominent plantar and dorsal calcaneal enthesophytes are also seen. No gross bony erosive changes are noted. No suspicious bony lesions. Soft tissues: Soft tissue swelling and possible ulceration involving tip of 3rd toe is seen. No tibiotalar joint effusion. Achilles tendon appears normal. IMPRESSION: Suggestion of ulceration involving tip of 3rd toe. No definite radiographic evidence of osteomyelitis. No fracture or dislocation. Left foot osteoarthritis. Dictated by: Oswaldo Avila M.D. on 07/05/2022 at 11:51 Approved by: Oswaldo Avila M.D. on 07/05/2022 at 12:01
== END ==
PROVIDERS: PCP Family Medicine; Referring Provider Family Medicine; Visit Provider Family Medicine
DX: E11.621 Type 2 diabetes mellitus with foot ulcer (principal); L97.529 Non-pressure chronic ulcer of other part of left foot with unspecified severity; M19.072 Primary osteoarthritis, left ankle and foot
CPT/HCPCS: 73630

== ENCOUNTER → 2022-08-09 13:32 | Outpatient (CLI) | payer OTHER, SELFPAY ==
[2019-01-18 19:37] VITALS: BMI 48.2
== END ==
PROVIDERS: PCP Family Medicine; Referring Provider Family Medicine; Visit Provider Surgery
DX: L97.521 Non-pressure chronic ulcer of other part of left foot limited to breakdown of skin (principal); L97.511 Non-pressure chronic ulcer of other part of right foot limited to breakdown of skin; E11.621 Type 2 diabetes mellitus with foot ulcer; M20.41 Other hammer toe(s) (acquired), right foot; M20.42 Other hammer toe(s) (acquired), left foot; L84 Corns and callosities; E11.40 Type 2 diabetes mellitus with diabetic neuropathy, unspecified
CPT/HCPCS: 11055; 99203; 99214

== ENCOUNTER → 2023-01-25 07:43 | Outpatient (CLI) | payer OTHER, SELFPAY ==
[2019-01-18 19:37] VITALS: BMI 48.2
[2023-01-25 09:34] LABS: Add Manual Diff / Slide Review NO; Basophils Absolute Auto 0 /uL (0-100); Basophils Percent Auto 0.2 % (0-2); Eosinophils Absolute Auto 0 /uL (0-450); Eosinophils Percent Auto 0.1 % (2-4); Hematocrit 41.8 % (41-53); Hemoglobin 14.4 g/dL (13.5-17.5); Lymphocytes Absolute Auto 2500 /uL (1100-4500); Lymphocytes Percent Auto 29.4 % (25-40); Mean Corpuscular HGB Conc 34.4 % (30-36); Mean Corpuscular Hemoglobin 30.2 PG (26-34); Mean Corpuscular Volume 87.9 fL (80-100); Monocytes Absolute Auto 500 /uL (0-900); Monocytes Percent Auto 6.3 % (3-14); Neutrophils Absolute Auto 5500 /uL (1500-7000); Platelet Count 158 X10^3/uL (150-400); Red Blood Cell Count 4.75 X10^6/uL (4.5-5.9); Red Cell Distribution Width 14.8 % (11.6-14.8); White Blood Cell Count 8.5 X10^3/uL (4.5-11.0)
[2023-01-25 10:09] LABS: Alanine Aminotransferase 24 IU/L (<50); Albumin Globulin Ratio 1.3 (1.0-2.8); Alkaline Phosphatase 113 U/L (38-126); Aspartate Aminotransferase 25 IU/L (17-59); BUN Creatinine Ratio 25.4 (6-22); Bilirubin Total 0.3 mg/dL (0.2-1.3); Blood Urea Nitrogen 16 mg/dL (9-20); Calcium 9.2 mg/dL (8.4-10.2); Carbon Dioxide 29 mmol/L (22-32); Chloride 96 mmol/L (98-107); Cholesterol 145 mg/dL (140-199); Estimated Glomerular Filt Rate > 60 mL/min (>60); Glucose 193 mg/dL (70-100); HDL Cholesterol 48 mg/dL (40-60); HEMOLYSIS < 15 (0-50); LDL Cholesterol Calculated 69 mg/dL (<100); Phenytoin / Dilantin < 3.0 ug/mL (10-20); Potassium 4.4 mmol/L (3.4-5.1); Sodium 135 mmol/L (137-145); Triglycerides 142 mg/dL (35-150)
[2023-01-25 10:53] LABS: Creatinine Urine Random 111.3 mg/dL
[2023-01-25 10:58] LABS: Microalbumin Urine Random 13.7 mg/dL (0-1.6)
[2023-01-26 06:04] LABS: x Labcorp Estim. Avg Glu (eAG) 189 mg/dL (.); x Labcorp Hemoglobin A1c 8.2 % (4.8-5.6)
== END ==
PROVIDERS: PCP Family Medicine; Referring Provider Family Medicine; Visit Provider Family Medicine
DX: E11.9 Type 2 diabetes mellitus without complications (principal); G40.909 Epilepsy, unspecified, not intractable, without status epilepticus; I10 Essential (primary) hypertension; I48.92 Unspecified atrial flutter; Z98.890 Other specified postprocedural states
CPT/HCPCS: 36415; 80053; 80061; 80185; 82043; 82570; 83036; 85025

== ENCOUNTER → 2023-09-19 16:05 | Outpatient (CLI) | payer OTHER, SELFPAY ==
[2019-01-18 19:37] VITALS: BMI 48.2
[2023-09-19 17:22] LABS: Hemoglobin A1C% w Est Avg Glu 9.8 % (4.0-6.0)
[2023-09-19 17:36] LABS: Alanine Aminotransferase 24 IU/L (<50); Albumin 4.1 g/dL (3.5-5.0); Albumin Globulin Ratio 1.1 (1.0-2.8); Alkaline Phosphatase 113 U/L (38-126); Aspartate Aminotransferase 27 IU/L (17-59); Bilirubin Total 0.5 mg/dL (0.2-1.3); Blood Urea Nitrogen 16 mg/dL (9-20); Calcium 9.4 mg/dL (8.4-10.2); Carbon Dioxide 28 mmol/L (22-32); Chloride 98 mmol/L (98-107); Estimated Glomerular Filt Rate > 60 mL/min (>60); Globulin 3.6 g/dL (1.7-4.1); Glucose 244 mg/dL (70-100); HEMOLYSIS < 15 (0-50); Potassium 4.3 mmol/L (3.4-5.1); Sodium 134 mmol/L (137-145); Total Protein 7.7 g/dL (6.3-8.2)
== END ==
PROVIDERS: PCP Family Medicine; Referring Provider Family Medicine; Visit Provider Family Medicine
DX: E11.9 Type 2 diabetes mellitus without complications (principal); Z79.4 Long term (current) use of insulin; I10 Essential (primary) hypertension; E66.01 Morbid (severe) obesity due to excess calories; Z68.42 Body mass index [BMI] 45.0-49.9, adult; Z12.5 Encounter for screening for malignant neoplasm of prostate
CPT/HCPCS: 36415; 80053; 83036; G0103

== ENCOUNTER → 2024-10-01 13:28 | Outpatient (CLI) | payer OTHER, SELFPAY ==
[2019-01-18 19:37] VITALS: BMI 48.2
== END ==
PROVIDERS: PCP Family Medicine; Visit Provider Family Medicine
DX: S91.102A Unspecified open wound of left great toe without damage to nail, initial encounter (principal)
CPT/HCPCS: 87070; 87075; 87077; 87147; 87205

== ENCOUNTER → 2024-10-14 07:58 | Outpatient (CLI) | payer OTHER, SELFPAY ==
[2019-01-18 19:37] VITALS: BMI 48.2
== END ==
PROVIDERS: PCP Family Medicine; Referring Provider Family Medicine; Visit Provider Surgery
DX: E11.621 Type 2 diabetes mellitus with foot ulcer (principal); L97.522 Non-pressure chronic ulcer of other part of left foot with fat layer exposed; L53.8 Other specified erythematous conditions; E11.42 Type 2 diabetes mellitus with diabetic polyneuropathy; Z79.01 Long term (current) use of anticoagulants; R60.0 Localized edema
CPT/HCPCS: 11042; 87070; 87075; 87077; 87147; 87205; 99214

== ENCOUNTER → 2024-10-14 09:43 | Outpatient (CLI) | payer OTHER, SELFPAY ==
[2019-01-18 19:37] VITALS: BMI 48.2
--- NOTE | 2024-10-14 09:44 | DI.RAD.S_ITS ---
PROCEDURE: XR FOOT LT MIN 3V INDICATIONS: eval for osteo TECHNIQUE: 3 views of the foot were acquired. COMPARISON: [facility], CR, XR FOOT LT MIN 3V, 07/05/2022, 11:11. FINDINGS: Bones: No fractures or dislocations. No suspicious bony lesions. Large calcaneal spur. Soft tissues: No tibiotalar joint effusion. Achilles tendon appears normal. IMPRESSION: Soft tissue swelling without lytic lesion to suggest osteomyelitis. Large calcaneal spur Approved by: Subhash Small M.D. on 10/15/2024 at 18:07
[2024-10-14 11:01] LABS: Hemoglobin A1C% w Est Avg Glu 9.3 % (4.0-6.0)
[2024-10-14 11:07] LABS: Add Manual Diff / Slide Review NO; Basophils Absolute Auto 0 /uL (0-100); Basophils Percent Auto 0.3 % (0-2); Eosinophils Absolute Auto 0 /uL (0-450); Hematocrit 44.2 % (41-53); Hemoglobin 14.9 g/dL (13.5-17.5); Lymphocytes Absolute Auto 2100 /uL (1100-4500); Lymphocytes Percent Auto 24.4 % (25-40); Mean Corpuscular HGB Conc 33.8 % (30-36); Mean Corpuscular Hemoglobin 30.2 PG (26-34); Mean Corpuscular Volume 89.2 fL (80-100); Monocytes Absolute Auto 500 /uL (0-900); Monocytes Percent Auto 5.7 % (3-14); Neutrophils Absolute Auto 6000 /uL (1500-7000); Neutrophils Percent Auto 69.6 % (50-75); Platelet Count 260 X10^3/uL (150-400); Red Blood Cell Count 4.95 X10^6/uL (4.5-5.9); Red Cell Distribution Width 14.2 % (11.6-14.8); White Blood Cell Count 8.6 X10^3/uL (4.5-11.0)
[2024-10-14 11:10] LABS: Alanine Aminotransferase 27 IU/L (<50); Albumin 4.3 g/dL (3.5-5.0); Albumin Globulin Ratio 1.3 (1.0-2.8); Alkaline Phosphatase 120 U/L (38-126); Aspartate Aminotransferase 29 IU/L (17-59); BUN Creatinine Ratio 24.6 (6-22); Bilirubin Total 0.4 mg/dL (0.2-1.3); Blood Urea Nitrogen 16 mg/dL (9-20); C-Reactive Protein Quant 2.4 mg/dL (<1.0); Calcium 9.2 mg/dL (8.4-10.2); Carbon Dioxide 26 mmol/L (22-32); Chloride 97 mmol/L (98-107); Estimated Glomerular Filt Rate > 60 mL/min (>60); Globulin 3.3 g/dL (1.7-4.1); Glucose 228 mg/dL (70-100); HEMOLYSIS < 15 (0-50); Potassium 4.5 mmol/L (3.4-5.1); Sodium 133 mmol/L (137-145); Total Protein 7.6 g/dL (6.3-8.2)
[2024-10-14 11:51] LABS: Erythrocyte Sedimentation Rate 30 MM/HR (0-15)
[2024-10-14 14:07] LABS: Alanine Aminotransferase 25 IU/L (<50); Albumin 4.2 g/dL (3.5-5.0); Albumin Globulin Ratio 1.2 (1.0-2.8); Alkaline Phosphatase 123 U/L (38-126); Aspartate Aminotransferase 29 IU/L (17-59); BUN Creatinine Ratio 24.6 (6-22); Bilirubin Total 0.4 mg/dL (0.2-1.3); Blood Urea Nitrogen 16 mg/dL (9-20); Calcium 9.1 mg/dL (8.4-10.2); Carbon Dioxide 27 mmol/L (22-32); Chloride 96 mmol/L (98-107); Estimated Glomerular Filt Rate > 60 mL/min (>60); Globulin 3.5 g/dL (1.7-4.1); Glucose 225 mg/dL (70-100); HEMOLYSIS < 15 (0-50); Potassium 4.6 mmol/L (3.4-5.1); Sodium 133 mmol/L (137-145); Total Protein 7.7 g/dL (6.3-8.2)
[2024-10-14 15:07] LABS: HIV 1 & 2 Ab/Ag 4th Gen Combo NEGATIVE (NEGATIVE); Hep C Virus Ab w/Reflex Quant NEGATIVE s/c (NEGATIVE)
== END ==
PROVIDERS: PCP Family Medicine; Referring Provider Surgery; Visit Provider Surgery
DX: E11.621 Type 2 diabetes mellitus with foot ulcer (principal); L97.522 Non-pressure chronic ulcer of other part of left foot with fat layer exposed; M77.32 Calcaneal spur, left foot; M79.89 Other specified soft tissue disorders; E11.42 Type 2 diabetes mellitus with diabetic polyneuropathy; E11.69 Type 2 diabetes mellitus with other specified complication; Z11.59 Encounter for screening for other viral diseases; I48.92 Unspecified atrial flutter; Z11.4 Encounter for screening for human immunodeficiency virus [HIV]; E11.29 Type 2 diabetes mellitus with other diabetic kidney complication; R80.9 Proteinuria, unspecified; E78.2 Mixed hyperlipidemia; R60.0 Localized edema; L53.8 Other specified erythematous conditions; I10 Essential (primary) hypertension; G47.30 Sleep apnea, unspecified; E66.01 Morbid (severe) obesity due to excess calories; Z68.42 Body mass index [BMI] 45.0-49.9, adult; Z79.4 Long term (current) use of insulin; Z79.01 Long term (current) use of anticoagulants
CPT/HCPCS: 11042; 36415; 73630; 80053; 83036; 85025; 85651; 86140; 86803; 87070; 87075; 87077; 87147; 87205; 87389; 99214

== ENCOUNTER → 2024-10-21 08:39 | Outpatient (CLI) | payer OTHER, SELFPAY ==
[2019-01-18 19:37] VITALS: BMI 48.2
== END ==
LOC: WC 08:40
PROVIDERS: PCP Family Medicine; Referring Provider Family Medicine; Visit Provider Surgery
DX: E11.621 Type 2 diabetes mellitus with foot ulcer (principal); L97.522 Non-pressure chronic ulcer of other part of left foot with fat layer exposed; L84 Corns and callosities; L53.9 Erythematous condition, unspecified; R60.0 Localized edema; R23.4 Changes in skin texture; Z79.01 Long term (current) use of anticoagulants
CPT/HCPCS: 11042

== ENCOUNTER → 2024-10-28 06:46 | Outpatient (CLI) | payer OTHER, SELFPAY ==
[2019-01-18 19:37] VITALS: BMI 48.2
--- NOTE | 2024-10-28 06:47 | DI.US.S_ITS ---
PROCEDURE: US ARTERIAL DUPLEX LE LT INDICATIONS: LEFT HALLUX WOUND TECHNIQUE: Color and pulse Doppler interrogation was performed of the left lower extremity arterial system, with image documentation. COMPARISON: [facility], , ARTERIAL LOW.EXTREM.BILATERAL, 04/08/2016, 11:40. FINDINGS: Common femoral artery: 92 cm/sec, with biphasic flow. Deep femoral artery: 59 cm/sec, with triphasic flow. Proximal superficial femoral artery: 85 cm/sec, with biphasic flow. Mid superficial femoral artery: 70 cm/sec, with triphasic flow. Distal superficial femoral artery: 89 cm/sec, with biphasic flow. Popliteal artery: 93 cm/sec, with triphasic flow. Posterior tibial artery: Not identified Anterior tibial artery/dorsalis pedis: 57 cm/sec, with biphasic flow. Aguilar-scale imaging description: No appreciable plaque. IMPRESSION: No hemodynamically significant stenosis. Dictated by: Tali Ramos M.D. on 10/28/2024 at 14:35 Approved by: Tali Ramos M.D. on 10/28/2024 at 14:38
== END ==
PROVIDERS: PCP Family Medicine; Referring Provider Surgery; Visit Provider Surgery
DX: E11.621 Type 2 diabetes mellitus with foot ulcer (principal); L97.529 Non-pressure chronic ulcer of other part of left foot with unspecified severity; E11.42 Type 2 diabetes mellitus with diabetic polyneuropathy
CPT/HCPCS: 93926; 99213

== ENCOUNTER → 2024-10-28 11:25 | Outpatient (CLI) | payer OTHER, SELFPAY ==
[2019-01-18 19:37] VITALS: BMI 48.2
== END ==
PROVIDERS: PCP Family Medicine; Referring Provider Family Medicine; Visit Provider Surgery
DX: Z86.31 Personal history of diabetic foot ulcer (principal); E11.42 Type 2 diabetes mellitus with diabetic polyneuropathy
CPT/HCPCS: 99213

== ENCOUNTER → 2024-11-04 10:45 | Outpatient (CLI) | payer OTHER, SELFPAY ==
[2019-01-18 19:37] VITALS: BMI 48.2
== END ==
LOC: WC 10:46
PROVIDERS: PCP Family Medicine; Referring Provider Family Medicine; Visit Provider Surgery
DX: E11.621 Type 2 diabetes mellitus with foot ulcer (principal); L97.522 Non-pressure chronic ulcer of other part of left foot with fat layer exposed; L84 Corns and callosities; E11.42 Type 2 diabetes mellitus with diabetic polyneuropathy; R56.9 Unspecified convulsions
CPT/HCPCS: 99212; 99213

== ENCOUNTER → 2025-02-28 10:55 | Outpatient (CLI) | payer OTHER, SELFPAY ==
[2019-01-18 19:37] VITALS: BMI 48.2
[2025-02-28 12:34] LABS: Hemoglobin A1C% w Est Avg Glu 7.6 % (4.0-6.0)
== END ==
PROVIDERS: PCP Family Medicine; Referring Provider Family Medicine; Visit Provider Family Medicine
DX: E11.9 Type 2 diabetes mellitus without complications (principal); Z79.4 Long term (current) use of insulin
CPT/HCPCS: 36415; 83036

== ENCOUNTER → 2025-07-11 09:28 | Outpatient (CLI) | payer OTHER, SELFPAY ==
[2019-01-18 19:37] VITALS: BMI 48.2
[2025-07-11 10:04] LABS: Prothrombin Time 82.8 SECONDS (9.4-12.5)
[2025-07-11 10:11] LABS: Hemoglobin A1C% w Est Avg Glu 6.9 % (4.0-6.0)
[2025-07-11 10:14] LABS: INR 7.7 (0.9-1.3)
== END ==
PROVIDERS: PCP Family Medicine; Referring Provider Family Medicine; Visit Provider Family Medicine
DX: Z51.81 Encounter for therapeutic drug level monitoring (principal); I48.92 Unspecified atrial flutter; I48.19 Other persistent atrial fibrillation; E11.29 Type 2 diabetes mellitus with other diabetic kidney complication; R80.9 Proteinuria, unspecified; Z79.4 Long term (current) use of insulin; Z79.01 Long term (current) use of anticoagulants; Z79.899 Other long term (current) drug therapy
CPT/HCPCS: 36415; 83036; 85610

== ENCOUNTER → 2025-08-08 11:35 | Outpatient (CLI) | payer OTHER, SELFPAY ==
[2019-01-18 19:37] VITALS: BMI 48.2
[2025-08-08 12:25] LABS: INR 2.8 (0.9-1.3); Prothrombin Time 30.8 SECONDS (9.4-12.5)
== END ==
PROVIDERS: PCP Family Medicine; Referring Provider Family Medicine; Visit Provider Family Medicine
DX: Z51.81 Encounter for therapeutic drug level monitoring (principal); I48.92 Unspecified atrial flutter; I48.19 Other persistent atrial fibrillation; Z79.01 Long term (current) use of anticoagulants
CPT/HCPCS: 36415; 85610